=== PATIENT | male | born 1960 | race Caucasian/White ===

== ENCOUNTER 2016-12-08 14:03 | Emergency (ER) | payer MEDICARE ==
[2016-12-08 14:13] VITALS: O2SAT 95
[2016-12-08 14:24] LABS: Mean Cell Volume 95.9 fl (78-100); Mean Corpuscular Hemoglobin 32.2 pg (26-32); Mean Platelet Volume 10.3 fl (6-9.5); Platelet Count 75 K/mm3 (150-450); Red Blood Count 4.38 M/mm3 (4.1-5.6); Red Cell Distribution Width 14.6 % (11.5-14.0); White Blood Count 4.1 K/mm3 (4.0-10.5)
[2016-12-08 14:27] LABS: A-aADO2 67; ARTERIAL BLD GAS O2 SATURATION 97.9 % (95-100); ARTERIAL BLOOD GAS BASE EXCESS 7.3 (-2.0-2.0); ARTERIAL BLOOD GAS FIO2 28 %; ARTERIAL BLOOD GAS PO2 78 mmHg (75-100); ARTERIAL BLOOD GAS pH 7.47 (7.35-7.45)
--- NOTE | 2016-12-08 14:37 | XRAY ---
Indication: Altered mental status. Comparison: August 16, 2015. Portable apical lordotic chest clear. Heart is borderline enlarged. Vascularity normal. Bony thorax intact. Impression: Borderline cardiomegaly. Negative for acute pneumonic process or CHF.
[2016-12-08 14:46] LABS: ALBUMIN 2.9 g/dL (3.4-5.0); ALKALINE PHOSPHATASE 90 U/L (46-116); ANION GAP 10.3 MEQ/L (5-15); BLOOD UREA NITROGEN 12 mg/dL (9-20); CHLORIDE 108 mEq/L (98-107); Carbon Dioxide 31.2 mEq/L (21-32); Glucose 239 MG/DL (70-110); Potassium 3.9 mEq/L (3.5-5.1); SGOT/AST 49 U/L (15-37); SGPT/ALT 47 U/L (12-78); SODIUM 146 mEq/L (136-145); Total Protein 6.9 gm/dL (6.4-8.2)
--- NOTE | 2016-12-08 15:13 | XRAY ---
Indication: Altered mental status. Multiple contiguous axial images obtained through the head without contrast. Comparison: February 02, 2015. Several images slightly degraded by motion artifact. Again grossly normal appearing brain parenchyma, ventricles, and bony calvarium. Visualized paranasal sinuses and mastoid air cells are clear. Impression: Minimal motion artifact. Stable grossly negative CT head without contrast exam. CTDI 67.60
[2016-12-08 15:15] LABS: Collection Type CCMS; Leukocyte Esterase 2+ (NEGATIVE)
[2016-12-08 15:16] LABS: ADD URINE CULTURE? YES (NO); Bilirubin NEGATIVE (NEGATIVE); Blood 250 Ery/ul (0-5); COMPLETE URINE MICROSCOPIC? YES; Glucose NEGATIVE (NEGATIVE)
--- NOTE | 2016-12-08 15:17 | ERPHSYRPT ---
- History of Present Illness Time Seen by Provider: 12/08/16 14:42 Source: patient, family ( who is here- phone [phone]), EMS, [facility] records Patient Subjective Stated Complaint: [facility] states pt has been more slow to respond today. pt states he has not been using his sleep apnea machine at night for th past 4 nights because it is broken. Triage Nursing Assessment: pt alert and oriented x2. pt pink, warm, dry. pupils perrl. pt able to follow commands. ems blood sugar 252. Physician History: CC: not himself Hx: 55 y/ pt of Dr Archuleta from [place]. states not himdelf today, a little confused. No fever. No vomiting. He wears a suprapubic cath. Hx of DM. Apparently he has not used CPAP at night the past 4 nights. Pt is limited historian. Timing/Duration: today Severity: moderate Allergies/Adverse Reactions: metformin Allergy (Mild, Verified 12/08/16 14:13) Diarrhea phenytoin sodium [From Dilantin] Allergy (Mild, Verified 12/08/16 14:13) phenytoin sodium extended [From Dilantin] Allergy (Mild, Verified 12/08/16 14:13 ) carbamazepine [From Tegretol] Allergy (Unknown, Verified 12/08/16 14:13) Home Medications: Levothyroxine Sodium 75 Mcg [Synthroid 75 Mcg] 75 mcg PO DAILY 10/21/12 [ History] PANTOPRAZOLE 40 mg Tablet [Protonix 40MG Tablet] 40 mg PO DAILY 12/17/12 [ History] Hydrocodone Bit/Acetaminophen [Hydrocodon-Acetaminophn 10-325] 1 each PO Q4HPRN PRN 08/14/13 [History] Multivitamin [Multi-Vitamin Daily] 1 each PO DAILY 05/20/14 [History] Dextrose [Glucose] 4 gm PO UD PRN 06/26/14 [History] Fluticasone/Salmeterol [Advair 250-50 Diskus] 1 puff IH BID 06/26/14 [History] Glucagon 1 mg [GlucaGen 1 MG] 1 mg IM UD PRN 06/26/14 [History] Magnesium Hydroxide 30 ml [Milk of Magnesia 30 ml] 30 ml PO HSPRN PRN [History] Ascorbic Acid 500 mg [Vitamin C 500 MG] 750 mg PO BID 02/02/15 [History] Ipratropium/Albuterol Sulfate [Iprat-Albut 0.5-3(2.5) mg/3 ml] 3 ml IH BID 02/02 [History] Menthol [[place]] 3.2 mg MM .PRN PRN 02/02/15 [History] Tolterodine Tartrate 2 mg [Detrol 2 MG] 4 mg PO DAILY 02/02/15 [History] Acetaminophen 650 mg [Feverall 650 mg] 650 mg RC Q4HPRN PRN 03/29/15 [ History] Levetiracetam [Keppra] 250 mg PO DAILY 03/29/15 [History] Lorazepam 0.5 mg [Ativan 0.5 MG] 0.5 mg PO Q6HPRN PRN 03/29/15 [History] Armodafinil [Nuvigil] 200 mg PO DAILY 08/16/15 [History] Bumetanide [Bumex] 4 mg PO QAM 08/16/15 [History] Dextran 70/Hypromellose/Pf [Artificial Tears Drops] 1 drop OP Q8H 08/16/15 [ History] Insulin Lispro [Humalog] 1 units SQ ACHS 08/16/15 [History] Na Phos,M-B/Na Phos,Di-Ba [Fleet Enema] 1 bottle .ROUTE DAILY PRN PRN 08/16/15 [ History] Nystatin/TCN/Hc/Diphenhydram [Tiffanie's Magic Mouthwash] 10 ml PO QID PRN PRN 08/16/15 [History] Pregabalin 50 mg [Lyrica 50MG] 1 cap PO BID 08/16/15 [History] Amiloride HCl 5 mg PO DAILY 10/17/15 [History] Aspirin/Acetaminophen/Caffeine [Excedrin Migraine Caplet] 1 each PO BID PRN PRN 10/17/15 [History] Bumetanide [Bumex] 2 mg PO QPM 10/17/15 [History] Carbamide Peroxide [Ear Wax Drops] 5 drops OT BID 10/17/15 [History] Hx Tetanus, Diphtheria Vaccination/Date Given: Yes (unknown) Hx Influenza Vaccination/Date Given: No ([place]own) Hx Pneumococcal Vaccination/Date Given: No (unknown) Immunizations Up to Date: No (unknown) - Review of Systems Constitutional: Malaise, No Fever, No Chills Eyes: No Symptoms Respiratory: No Cough Cardiac: No Chest Pain Abdominal/Gastrointestinal: No Abdominal Pain, No Vomiting, No Diarrhea Genitourinary Symptoms: Other (suprapubic cath) Neurological: No Headache All Other Systems: Unable due to condition - Past Medical History Pertinent Past Medical History: Yes Neurological History: Alzheimer's Disease, Dementia, Seizures, Stroke, TIA ENT History: No Pertinent History Cardiac History: High Cholesterol, Hypertension Respiratory History: Bronchitis, COPD, Sleep Apnea Endocrine Medical History: Diabetes Type II, Hypothyroidism Musculoskeletal History: No Pertinent History GI Medical History: Cirrhosis History: Other Psycho-Social History: Bipolar, Depression Male Reproductive Disorders: No Pertinent History Other Medical History: URINARY INCONTINENCE/retention - Past Surgical History Past Surgical History: Yes Neuro Surgical History: No Pertinent History Cardiac: No Pertinent History Respiratory: No Pertinent History Gastrointestinal: No Pertinent History Genitourinary: No Pertinent History Musculoskeletal: Orthopedic Surgery Male Surgical History: Other Other Surgical History: LATE CIRCUMCISION - tip of FINGER AMPUTATION. SUPRAPUBIC CATHETER PLACED 07/11/14 - Social History Smoking Status: Former smoker How long have you smoked: YRS Exposure to second hand smoke: No Alcohol Use: None Drug Use: none Patient Lives Alone: No Significant Family History: heart disease, diabetes - Nursing Vital Signs Nursing Vital Signs: Initial Vital Signs Temperature 98.3 F Temperature Source Oral Pulse Rate 82 Respiratory Rate 14 Blood Pressure [] 130/65 Pain Intensity 0 - Physical Exam General Appearance: alert, obese Eye Exam: PERRL/EOMI Ears, Nose, Throat Exam: moist mucous membranes Neck Exam: supple Respiratory Exam: diminished breath sounds Cardiovascular Exam: regular rate/rhythm Gastrointestinal/Abdomen Exam: soft, No tenderness, No distention Male Genitalia Exam: other (suprapubic cath) Skin Exam: warm, dry SpO2 Interpretation: normal SpO2: 95 Oxygen Delivery: Room Air - Course Nursing assessment & vital signs reviewed: Yes EKG Interpreted by Me: RATE (81), Sinus Rhythm, NORMAL AXIS, NORMAL INTERVALS ( QTc 450), Non-specific ST Changes - Radiology Exams cxr X-ray Interpretation: Teleradiologist Report (borderline CM, no acute) - CT Exams head CT Interpretation: Negative, Discussed w/radiologist Ordered Tests: Active Orders 24 hr Category Date Time Status Residential Energy Auditor STAT Care 12/08/16 14:09 Active Clean Catch Urine Specimen STAT Care 12/08/16 14:09 Active EKG-ER Only STAT Care 12/08/16 14:09 Active IV Insertion STAT Care 12/08/16 14:09 Active Oxygen-ED Only NASAL CANNULA 2 lpm Care 12/08/16 15:27 Active Pulse Oximetry (ED) STAT Care 12/08/16 14:09 Active CHEST 1 VIEW (PORTABLE) Stat Exams 12/08/16 14:10 Completed HEAD WITHOUT CONTRAST [CT] Stat Exams 12/08/16 14:46 Completed ARTERIAL BLOOD GASES Stat Lab 12/08/16 14:24 Completed CBC W DIFF Stat Lab 12/08/16 14:20 Completed CMP Stat Lab 12/08/16 14:20 Completed CULTURE,URINE Stat Lab 12/08/16 15:12 Received Lactic Acid Stat Lab 12/08/16 15:20 Completed Manual Differential NC Stat Lab 12/08/16 14:20 Completed UA W/ MICROSCOPIC Stat Lab 12/08/16 15:12 Completed Lab/Rad Data: Laboratory Result Diagrams 12/08/16 14:20 12/08/16 14:20 Laboratory Results 12/08/16 12/08/16 12/08/16 Range/Units 15:20 15:12 14:24 WBC (4.0-10.5) K/mm3 RBC (4.1-5.6) M/mm3 Hgb (12.5-18.0) gm/dl Hct (42-50) % MCV (78-100) fl MCH (26-32) pg MCHC (32-36) g/dl RDW (11.5-14.0) % Plt Count (150-450) K/mm3 MPV (6-9.5) fl Puncture Site RIGHT RADIAL pCO2 44 (35-45) mmHg pO2 78 (75-100) mmHg Base Excess 7.3 H (-2.0-2.0) O2 Saturation 94.5 (94-100) g/dF ABG pH 7.47 H (7.35-7.45) ABG HCO3 32.0 H* (22-28) ABG O2 Sat (Measured) 97.9 (95-100) % Matt Test NOT APPLICABLE A-a Gradient 67 a/A Ratio 0.54 Hemoglobin 14.8 Carboxyhemoglobin 2.1 (0.0-6.9) % THgb Methemoglobin 1.4 (1.4-1.5) % Temperature 37.0 C POC O2 Flow Rate 28 % Sodium (136-145) mEq/L Potassium 3.9 (3.5-5.1) mEq/L Chloride (98-107) mEq/L Carbon Dioxide (21-32) mEq/L Anion Gap (5-15) MEQ/L BUN (9-20) mg/dL Creatinine (0.55-1.30) mg/dl Estimated GFR ML/MIN Glucose (70-110) MG/DL Lactic Acid 1.2 (0.4-2.0) Calcium (8.5-10.1) mg/dL Total Bilirubin (0.2-1.0) mg/dL AST (15-37) U/L ALT (12-78) U/L Alkaline Phosphatase (46-116) U/L Serum Total Protein (6.4-8.2) gm/dL Albumin (3.4-5.0) g/dL Ur Collection Type CCMS Urine Color YELLOW (YELLOW) Urine Appearance CLEAR (CLEAR) Urine pH 7.0 (5-6) Ur Specific [place] 1.010 (1.005-1.025) Urine Protein NEGATIVE (Negative) Urine Ketones NEGATIVE (NEGATIVE) Urine Blood 250 (0-5) Collin/ul Urine Nitrite POSITIVE (NEGATIVE) Urine Bilirubin NEGATIVE (NEGATIVE) Urine Urobilinogen NORMAL (0-1) mg/dL Ur Leukocyte Esterase 2+ (NEGATIVE) Urine Microscopic RBC 0-2 (0-2) /HPF Urine Microscopic WBC 10-15 (0-5) /HPF Ur Epithelial Cells FEW (FEW) /HPF Urine Bacteria MODERATE (NEGATIVE) /HPF Urine Glucose NEGATIVE (NEGATIVE) mg/dL Specimen Received 12/08/16 1512 12/08/16 12/08/16 Range/Units 14:20 14:20 WBC 4.1 (4.0-10.5) K/mm3 RBC 4.38 (4.1-5.6) M/mm3 Hgb 14.1 (12.5-18.0) gm/dl Hct 42.0 (42-50) % MCV 95.9 (78-100) fl MCH 32.2 H (26-32) pg MCHC 33.6 (32-36) g/dl RDW 14.6 H (11.5-14.0) % Plt Count 75 L (150-450) K/mm3 MPV 10.3 H (6-9.5) fl Puncture Site pCO2 (35-45) mmHg pO2 (75-100) mmHg Base Excess (-2.0-2.0) O2 Saturation (94-100) g/dF ABG pH (7.35-7.45) ABG HCO3 (22-28) ABG O2 Sat (Measured) (95-100) % Matt Test A-a Gradient a/A Ratio Hemoglobin Carboxyhemoglobin (0.0-6.9) % THgb Methemoglobin (1.4-1.5) % Temperature C POC O2 Flow Rate % Sodium 146 H (136-145) mEq/L Potassium 3.9 (3.5-5.1) mEq/L Chloride 108 H (98-107) mEq/L Carbon Dioxide 31.2 (21-32) mEq/L Anion Gap 10.3 (5-15) MEQ/L BUN 12 (9-20) mg/dL Creatinine 1.16 (0.55-1.30) mg/dl Estimated GFR > 60 ML/MIN Glucose 239 H (70-110) MG/DL Lactic Acid (0.4-2.0) Calcium 9.3 (8.5-10.1) mg/dL Total Bilirubin 1.30 H (0.2-1.0) mg/dL AST 49 H (15-37) U/L ALT 47 (12-78) U/L Alkaline Phosphatase 90 (46-116) U/L Serum Total Protein 6.9 (6.4-8.2) gm/dL Albumin 2.9 L (3.4-5.0) g/dL Ur Collection Type Urine Color (YELLOW) Urine Appearance (CLEAR) Urine pH (5-6) Ur Specific [place] (1.005-1.025) Urine Protein (Negative) Urine Ketones (NEGATIVE) Urine Blood (0-5) Collin/ul Urine Nitrite (NEGATIVE) Urine Bilirubin (NEGATIVE) Urine Urobilinogen (0-1) mg/dL Ur Leukocyte Esterase (NEGATIVE) Urine Microscopic RBC (0-2) /HPF Urine Microscopic WBC (0-5) /HPF Ur Epithelial Cells (FEW) /HPF Urine Bacteria (NEGATIVE) /HPF Urine Glucose (NEGATIVE) mg/dL Specimen Received - Progress Progress Note: 12/08/16 15:[address] Archuleta. Will release to [facility] with invanz 1 gram daily for one week, 1/2 NS IVF for one bag, and follow up. Counseled pt/family regarding: lab results, diagnosis, need for follow-up, rad results - Departure Time of Disposition: 15:49 Departure Disposition: Extended Care Facility Clinical Impression: UTI (urinary tract infection), Hypernatremia, Dehydration Condition: Stable Critical Care Time: No Referrals: DANNY ARCHULETA MD [Primary Care Provider] - Instructions: Hypernatremia, Dehydration -- Adult, Urinary Tract Infection (UTI ) Additional Instructions: Invanz 1gram IVPB Q 24 hours for UTI. 1/2 NS IV 100ml/hr for one bag- 1000ml. Call Dr Archuleta for further orders. Check CPAP as he needs to use it at night.
[2016-12-08 15:37] LABS: Bacteria MODERATE /HPF (NEGATIVE); Epithelial Cells FEW /HPF (FEW)
[2016-12-08] MEDS ORDERED: Invanz 1 GM*** 1 G in Sodium Chloride 100ML MINI-BAG PLUS 100 ML IV STA (15:47)
[2016-12-08 16:41] LABS: Basophil 1 % (0.0-1.0); Eosinophil 7 % (0.00-3.0); Total Cells Counted 100
[2016-12-08 16:43] LABS: ANISOCYTOSIS 1+; Platelet Estimate DECREASED (NORMAL)
[2016-12-08 17:16] VITALS: BP 131/72; PULSE 82
== END 2016-12-08 17:17 | disposition home or self-care (01) ==
LOC: ED 14:03
DX: N39.0 Urinary tract infection, site not specified (principal); E87.0 Hyperosmolality and hypernatremia; E86.0 Dehydration; R53.81 Other malaise; Z79.899 Other long term (current) drug therapy
CPT/HCPCS: 36000; 36415; 36600; 70450; 71010; 80053; 81000; 82375; 82803; 83605; 85025; 87077; 87086; 87186; 93005; 93041; 96360; 96365; 99285; J1335

== ENCOUNTER 2017-02-10 21:19 | Emergency (ER) | payer MEDICARE ==
[2017-02-10] MEDS ORDERED: Phenergan 25 MG INJ IV ONE (21:26)
[2017-02-10] MEDS ORDERED: Hydromorphone 1 mg/ml Ampule IV ONE (21:26)
--- NOTE | 2017-02-10 21:26 | ERPHSYRPT ---
- History of Present Illness Time Seen by Provider: 02/10/17 21:19 Source: patient Exam Limitations: no limitations Physician History: ABOUT 45 MINUTES AGO PT WAS IN HIS WHEELCHAIR TRYING TO KICK A TOY OUT OF HIS WAY WHEN HE FELL FORWARD WITH RESULTANT PAIN IN THE LOWER BACK, HEAD, ABDOMEN AND BOTH KNEES. PT DENIES CHEST PAIN, SHORTNESS OF AIR, VOMITING. Allergies/Adverse Reactions: metformin Allergy (Mild, Verified 12/08/16 14:13) Diarrhea phenytoin sodium [From Dilantin] Allergy (Mild, Verified 12/08/16 14:13) phenytoin sodium extended [From Dilantin] Allergy (Mild, Verified 12/08/16 14:13 ) carbamazepine [From Tegretol] Allergy (Unknown, Verified 12/08/16 14:13) Home Medications: Levothyroxine Sodium 75 Mcg [Synthroid 75 Mcg] 75 mcg PO DAILY 10/21/12 [ History] PANTOPRAZOLE 40 mg Tablet [Protonix 40MG Tablet] 40 mg PO DAILY 12/17/12 [ History] Hydrocodone Bit/Acetaminophen [Hydrocodon-Acetaminophn 10-325] 1 each PO Q4HPRN PRN 08/14/13 [History] Multivitamin [Multi-Vitamin Daily] 1 each PO DAILY 05/20/14 [History] Dextrose [Glucose] 4 gm PO UD PRN 06/26/14 [History] Fluticasone/Salmeterol [Advair 250-50 Diskus] 1 puff IH BID 06/26/14 [History] Glucagon 1 mg [GlucaGen 1 MG] 1 mg IM UD PRN 06/26/14 [History] Magnesium Hydroxide 30 ml [Milk of Magnesia 30 ml] 30 ml PO HSPRN PRN [History] Ascorbic Acid 500 mg [Vitamin C 500 MG] 750 mg PO BID 02/02/15 [History] Ipratropium/Albuterol Sulfate [Iprat-Albut 0.5-3(2.5) mg/3 ml] 3 ml IH BID 02/02 [History] Menthol [[place]] 3.2 mg MM .PRN PRN 02/02/15 [History] Tolterodine Tartrate 2 mg [Detrol 2 MG] 4 mg PO DAILY 02/02/15 [History] Acetaminophen 650 mg [Feverall 650 mg] 650 mg RC Q4HPRN PRN 03/29/15 [ History] Levetiracetam [Keppra] 250 mg PO DAILY 03/29/15 [History] Lorazepam 0.5 mg [Ativan 0.5 MG] 0.5 mg PO Q6HPRN PRN 03/29/15 [History] Armodafinil [Nuvigil] 200 mg PO DAILY 08/16/15 [History] Bumetanide [Bumex] 4 mg PO QAM 08/16/15 [History] Dextran 70/Hypromellose/Pf [Artificial Tears Drops] 1 drop OP Q8H 08/16/15 [ History] Insulin Lispro [Humalog] 1 units SQ ACHS 08/16/15 [History] Nystatin/TCN/Hc/Diphenhydram [Tiffanie's Magic Mouthwash] 10 ml PO QID PRN PRN 08/16/15 [History] Pregabalin 50 mg [Lyrica 50MG] 1 cap PO BID 08/16/15 [History] Sodium Phosphate,[place]-Dibasic [Fleet Enema] 1 bottle .ROUTE DAILY PRN PRN [History] Amiloride HCl 5 mg PO DAILY 10/17/15 [History] Aspirin/Acetaminophen/Caffeine [Excedrin Migraine Caplet] 1 each PO BID PRN PRN 10/17/15 [History] Bumetanide [Bumex] 2 mg PO QPM 10/17/15 [History] Carbamide Peroxide [Ear Wax Drops] 5 drops OT BID 10/17/15 [History] Hx Tetanus, Diphtheria Vaccination/Date Given: Yes (unknown) Hx Influenza Vaccination/Date Given: No (unkown) Hx Pneumococcal Vaccination/Date Given: No (unknown) - Review of Systems Respiratory: No Dyspnea Cardiac: No Chest Pain Abdominal/Gastrointestinal: Abdominal Pain, No Vomiting Musculoskeletal: Back Pain (LOWER), Joint Pain (PAIN IN BOTH KNEES) Neurological: Headache All Other Systems: Reviewed and Negative - Past Medical History Pertinent Past Medical History: Yes Neurological History: Alzheimer's Disease, Dementia, Seizures, Stroke, TIA ENT History: No Pertinent History Cardiac History: High Cholesterol, Hypertension Respiratory History: Bronchitis, COPD, Sleep Apnea Endocrine Medical History: Diabetes Type II, Hypothyroidism Musculoskeletal History: No Pertinent History GI Medical History: Cirrhosis History: Other Psycho-Social History: Bipolar, Depression Male Reproductive Disorders: No Pertinent History Other Medical History: URINARY INCONTINENCE/retention - Past Surgical History Past Surgical History: Yes Neuro Surgical History: No Pertinent History Cardiac: No Pertinent History Respiratory: No Pertinent History Gastrointestinal: No Pertinent History Genitourinary: No Pertinent History Musculoskeletal: Orthopedic Surgery Male Surgical History: Other Other Surgical History: LATE CIRCUMCISION - tip of FINGER AMPUTATION. SUPRAPUBIC CATHETER PLACED 07/11/14 - Social History Smoking Status: Former smoker How long have you smoked: YRS Exposure to second hand smoke: No Alcohol Use: None Drug Use: none Patient Lives Alone: No Significant Family History: heart disease, diabetes - Nursing Vital Signs Nursing Vital Signs: Initial Vital Signs Temperature 98.7 F 02/10/17 21:43 Pulse Rate 82 02/10/17 21:43 Respiratory Rate 20 02/10/17 21:43 Blood Pressure 128/66 02/10/17 21:43 O2 Sat by Pulse Oximetry 82 L 02/10/17 21:43 Pain Scale Pain Intensity 0 - [place] Coma Score Best Eye Response ([place]): (4) open spontaneously Best Verbal Response ([place]): (5) oriented Best Motor Response (Alexandr): (6) obeys commands Alexandr Total: 15 - Physical Exam General Appearance: alert Head Injury: contusions (ERYTHEMATOUS ABRASION ON RIGHT UPPER ASPECT OF FOREHEAD ) Eye Exam: PERRL/EOMI ENT Exam: airway nml, nml ext.inspection, hearing grossly normal Neck Exam: trachea midline, tenderness (MILD POSTERIOR TENDERNESS) Respiratory/Chest Exam: normal breath sounds Cardiovascular Exam: normal heart sounds Gastrointestinal Exam: soft, normal bowel sounds, tenderness (MILD DIFFUSE TENDERNESS), other (SUPRAPUBIC CATHETER IN PLACE.) Back Exam: other (MILD LUMBAR TENDERNESS) Extremity Exam: normal inspection, pedal edema (+3 EDEMA BILATERALLY) Peripheral Pulses: dorsalis-pedis (R): 1+, dorsalis-pedis (L): 1+ Neurologic Exam: alert, cooperative Skin Exam: abrasion (ABRASIONS OF BOTH KNEES RIGHT > LEFT WITH GOOD ROM.) - Course Nursing assessment & vital signs reviewed: Yes - Radiology Exams Left Knee X-ray Interpretation: Interpreted by me, No Fracture Right Knee X-ray Interpretation: Interpreted by me, No Fracture - CT Exams Head CT Interpretation: Tele-radiologist Report (NO ACUTE FINDINGS) Cervical Spine CT Interpretation: Tele-radiologist Report (NO ACUTE FRACTURE OR SUBLUXATION.) Abdomen/Pelvis CT Interpretation: Tele-radiologist Report (SPLENOMEGALY AND SPLENIC GRANULOMA. CHOLELITHIASIS.) Ordered Tests: Active Orders 24 hr Category Date Time Status IV Insertion STAT Care 02/10/17 21:26 Active cath [Cath for Specimen-Straight] STAT Care 02/10/17 22:52 Active ABDOMEN AND PELVIS W/0 CONTRAS [CT] Stat Exams 02/10/17 21:39 Taken CERVICAL SPINE WO CONTRAST [CT] Stat Exams 02/10/17 21:28 Taken HEAD WITHOUT CONTRAST [CT] Stat Exams 02/10/17 21:28 Taken KNEE (1 OR 2 VIEW) Stat Exams 02/10/17 21:29 Taken KNEE (1 OR 2 VIEW) Stat Exams 02/10/17 21:29 Taken AMYLASE Stat Lab 02/10/17 21:45 Completed BLOOD CULTURE Stat Lab 02/11/17 00:57 Received CBC W DIFF Stat Lab 02/10/17 21:45 Completed CMP Stat Lab 02/10/17 21:45 Completed CULTURE,URINE Stat Lab 02/10/17 22:30 Received LIPASE Stat Lab 02/10/17 21:45 Completed MAG [MAGNESIUM] Stat Lab 02/10/17 21:45 Completed UA W/ MICROSCOPIC Stat Lab 02/10/17 22:30 Completed Medication Summary Generic Name Dose Route Start Last Admin Trade Name Freq PRN Reason Stop Dose Admin Sodium Chloride 1,000 mls @ 100 mls/hr 02/10/17 21:30 02/10/17 22:07 Sodium Chloride 0.9% 1000 Ml IV 03/12/17 21:29 100 mls/hr .Q10H CARMEN Administration Discontinued Medications Generic Name Dose Route Start Last Admin Trade Name Freq PRN Reason Stop Dose Admin Hydromorphone HCl 0.5 mg 02/10/17 21:26 02/10/17 22:07 Hydromorphone 1 Mg/Ml Ampule IV 02/10/17 21:27 0.5 mg STAT ONE Administration Hydromorphone HCl Confirm 02/10/17 21:50 Hydromorphone 1 Mg/Ml Ampule Administered 02/10/17 21:51 Dose 1 mg .ROUTE .STK-MED ONE Ceftriaxone Sodium/Dextrose 1 g in 50 mls @ 100 mls/hr 02/11/17 00:44 00:55 Rocephin 1 Gm-D5w 50 Ml Bag IV 02/11/17 01:13 100 mls/hr STAT STA Administration Ceftriaxone Sodium/Dextrose Confirm 02/11/17 00:49 Rocephin 1 Gm-D5w 50 Ml Bag Administered 02/11/17 00:50 Dose 1 g in 50 mls @ ud IV .STK-MED ONE Promethazine HCl 12.5 mg 02/10/17 21:26 02/10/17 22:08 Phenergan 25 Mg Inj IV 02/10/17 21:27 12.5 mg STAT ONE Administration Promethazine HCl Confirm 02/10/17 21:50 Phenergan 25 Mg Inj Administered 02/10/17 21:51 Dose 25 mg .ROUTE .STK-MED ONE Promethazine HCl Confirm 02/10/17 21:56 Phenergan 25 Mg Inj Administered 02/10/17 21:57 Dose 25 mg .ROUTE .STK-MED ONE Lab/Rad Data: Laboratory Result Diagrams 02/10/17 21:45 02/10/17 21:45 Laboratory Results 02/10/17 02/10/17 02/10/17 Range/Units 22:30 21:45 21:45 WBC (4.0-10.5) K/mm3 RBC (4.1-5.6) M/mm3 Hgb (12.5-18.0) gm/dl Hct (42-50) % MCV (78-100) fl MCH (26-32) pg MCHC (32-36) g/dl RDW (11.5-14.0) % Plt Count (150-450) K/mm3 MPV (6-9.5) fl Gran % (36.0-66.0) % Lymphocytes % (24.0-44.0) % Monocytes % (0.0-12.0) % Eosinophils % (0.00-5.0) % Basophils % (0.0-0.4) % Basophils # (0-0.4) Sodium 143 (136-145) mEq/L Potassium 4.2 (3.5-5.1) mEq/L Chloride 107 (98-107) mEq/L Carbon Dioxide 30.9 (21-32) mEq/L Anion Gap 9.4 (5-15) MEQ/L BUN 13 (9-20) mg/dL Creatinine 1.28 (0.55-1.30) mg/dl Estimated GFR > 60 ML/MIN Glucose 154 H (70-110) MG/DL Calcium 9.0 (8.5-10.1) mg/dL Magnesium 2.0 (1.8-2.4) mg/dL Total Bilirubin 0.90 (0.2-1.0) mg/dL AST 46 H (15-37) U/L ALT 56 (12-78) U/L Alkaline Phosphatase 93 (46-116) U/L Serum Total Protein 6.6 (6.4-8.2) gm/dL Albumin 2.7 L (3.4-5.0) g/dL Amylase 79 (25-115) U/L Lipase 446 H (73-393) U/L Ur Collection Type CATH Urine Color YELLOW (YELLOW) Urine Appearance CLOUDY (CLEAR) Urine pH 9.0 (5-6) Ur Specific [place] 1.000 (1.005-1.025) Urine Protein TRACE (Negative) Urine Ketones NEGATIVE (NEGATIVE) Urine Blood 250 (0-5) Collin/ul Urine Nitrite POSITIVE (NEGATIVE) Urine Bilirubin NEGATIVE (NEGATIVE) Urine Urobilinogen 4 (0-1) mg/dL Ur Leukocyte Esterase 2+ (NEGATIVE) Urine Microscopic RBC 5-10 (0-2) /HPF Urine Microscopic WBC 2-5 (0-5) /HPF Triple Phos Crystals 2-5 (NEGATIVE) /HPF Amorphous Crystals MODERATE (NEGATIVE) /HPF Urine Bacteria PACKED (NEGATIVE) /HPF Urine Mucus SLIGHT (NEGATIVE) /HPF Urine Glucose NEGATIVE (NEGATIVE) mg/dL Slides for Path Review Specimen Received 02/10/17:1836 02/10/17 Range/Units 21:45 WBC 4.4 (4.0-10.5) K/mm3 RBC 4.22 (4.1-5.6) M/mm3 Hgb 13.3 (12.5-18.0) gm/dl Hct 39.8 L (42-50) % MCV 94.3 (78-100) fl MCH 31.5 (26-32) pg MCHC 33.4 (32-36) g/dl RDW 13.7 (11.5-14.0) % Plt Count 73 L (150-450) K/mm3 MPV 10.3 H (6-9.5) fl Gran % 54.6 (36.0-66.0) % Lymphocytes % 28.0 (24.0-44.0) % Monocytes % 14.0 H (0.0-12.0) % Eosinophils % 3.2 (0.00-5.0) % Basophils % 0.2 (0.0-0.4) % Basophils # 0.01 (0-0.4) Sodium (136-145) mEq/L Potassium (3.5-5.1) mEq/L Chloride (98-107) mEq/L Carbon Dioxide (21-32) mEq/L Anion Gap (5-15) MEQ/L BUN (9-20) mg/dL Creatinine (0.55-1.30) mg/dl Estimated GFR ML/MIN Glucose (70-110) MG/DL Calcium (8.5-10.1) mg/dL Magnesium (1.8-2.4) mg/dL Total Bilirubin (0.2-1.0) mg/dL AST (15-37) U/L ALT (12-78) U/L Alkaline Phosphatase (46-116) U/L Serum Total Protein (6.4-8.2) gm/dL Albumin (3.4-5.0) g/dL Amylase (25-115) U/L Lipase (73-393) U/L Ur Collection Type Urine Color (YELLOW) Urine Appearance (CLEAR) Urine pH (5-6) Ur Specific [place] (1.005-1.025) Urine Protein (Negative) Urine Ketones (NEGATIVE) Urine Blood (0-5) Collin/ul Urine Nitrite (NEGATIVE) Urine Bilirubin (NEGATIVE) Urine Urobilinogen (0-1) mg/dL Ur Leukocyte Esterase (NEGATIVE) Urine Microscopic RBC (0-2) /HPF Urine Microscopic WBC (0-5) /HPF Triple Phos Crystals (NEGATIVE) /HPF Amorphous Crystals (NEGATIVE) /HPF Urine Bacteria (NEGATIVE) /HPF Urine Mucus (NEGATIVE) /HPF Urine Glucose (NEGATIVE) mg/dL Slides for Path Review YES Specimen Received - Departure Time of Disposition: 04:16 Departure Disposition: Home Clinical Impression: FALL, HEAD CONTUSION, CERVICAL SPRAIN, ABDOMINAL PAIN, LOW BACK PAIN, BILATERAL KNEE ABRASIONS/CONTUSIONS, UTI Condition: Stable Critical Care Time: No Referrals: HANK MERA [Primary Care Provider] - Instructions: Prevent Falls, Contusion, Urinary Tract Infection (UTI) Additional Instructions: FOLLOW UP WITH PRIVATE DOCTOR TOMORROW. WEAR SOFT C-COLLAR FOR 2 WEEKS ONLY WHILE AWAKE. Prescriptions: Nitrofurantoin Monohyd/M-Cryst [Macrobid 100 mg Capsule] 100 mg PO BID #20 capsule
[2017-02-10] MEDS ORDERED: Sodium Chloride 0.9% 1000 ML 1,000 ML IV SCH (21:30)
[2017-02-10] MEDS ORDERED: Phenergan 25 MG INJ ONE ×2 (21:50→21:56)
[2017-02-10] MEDS ORDERED: Hydromorphone 1 mg/ml Ampule ONE (21:50)
[2017-02-10] MEDS ORDERED: Sodium Chloride 0.9% 1000 ML 1,000 ML ONE (21:50)
[2017-02-10 21:51] LABS: BASOPHIL % 0.2 % (0.0-0.4); Eosinophil % 3.2 % (0.00-5.0); Granulocytes % 54.6 % (36.0-66.0); Mean Cell Volume 94.3 fl (78-100); Mean Corpuscular Hemoglobin 31.5 pg (26-32); Mean Platelet Volume 10.3 fl (6-9.5); Platelet Count 73 K/mm3 (150-450); Red Blood Count 4.22 M/mm3 (4.1-5.6); Red Cell Distribution Width 13.7 % (11.5-14.0); White Blood Count 4.4 K/mm3 (4.0-10.5)
[2017-02-10 22:18] LABS: ALBUMIN 2.7 g/dL (3.4-5.0); ALKALINE PHOSPHATASE 93 U/L (46-116); ANION GAP 9.4 MEQ/L (5-15); BLOOD UREA NITROGEN 13 mg/dL (9-20); CHLORIDE 107 mEq/L (98-107); Carbon Dioxide 30.9 mEq/L (21-32); Glucose 154 MG/DL (70-110); LIPASE 446 U/L (73-393); Potassium 4.2 mEq/L (3.5-5.1); SGOT/AST 46 U/L (15-37); SGPT/ALT 56 U/L (12-78); SODIUM 143 mEq/L (136-145); Total Protein 6.6 gm/dL (6.4-8.2)
[2017-02-10 23:11] LABS: ADD URINE CULTURE? YES (NO); Bacteria PACKED /HPF (NEGATIVE); Bilirubin NEGATIVE (NEGATIVE); Blood 250 Ery/ul (0-5); COMPLETE URINE MICROSCOPIC? YES; Collection Type CATH; Glucose NEGATIVE (NEGATIVE); Leukocyte Esterase 2+ (NEGATIVE); Mucus SLIGHT /HPF (NEGATIVE)
[2017-02-11] MEDS ORDERED: ROCEPHIN 1 Gm-D5w 50 ml Bag** 1 G/50 ML IVPB IV STA (00:44)
[2017-02-11] MEDS ORDERED: ROCEPHIN 1 Gm-D5w 50 ml Bag** 1 G/50 ML IVPB IV ONE (00:49)
[2017-02-11 02:24] VITALS: PULSE 72
[2017-02-11] MEDS ORDERED: NORCO 5/325 MG PO ONE (04:19)
[2017-02-11] MEDS ORDERED: NORCO 5/325 MG ONE (04:27)
[2017-02-11 04:40] VITALS: O2SAT 97
[2017-02-11 04:41] VITALS: BP 122/88
--- NOTE | 2017-02-11 10:12 | XRAY ---
Exam: Two-view portable right knee series from 02/11/2017. Comparison: None. Indication: Fell from wheelchair. Findings: AP and cross table lateral images of the right knee were obtained. I see no acute fracture or dislocation. There appears to be a small suprapatellar effusion on the crosstable lateral image. There is mild narrowing of the medial compartment of the right knee joint space. The lateral compartment is well maintained. Mild lateral osteophyte formation is seen on the femoral side of the lateral margin of the right knee joint. The patellofemoral joint appears preserved. No other focal bone lesion is seen. Impression: 1. No acute fracture or dislocation of the right knee is seen. 2. There is a small suprapatellar effusion of the right knee. 3. Mild medial compartment osteoarthritis of the right knee is seen.
--- NOTE | 2017-02-11 10:39 | XRAY ---
Exam: Limited two-view study of the left knee from 02/11/2017. Comparison: None. Indication: Fell from wheelchair. Findings: Portable AP and crosstable lateral images of the left knee were obtained. The lateral film is mildly rotated. There is slight narrowing of the patellofemoral joint at its superior aspect. I cannot exclude a tiny amount of suprapatellar fluid on the crosstable lateral image. There is moderate to marked narrowing of the medial compartment of the left knee joint space suggestive of osteoarthritis. The lateral compartment appears unremarkable. There is about 2.5 mm cortical step-off deformity along the medial margin of the proximal left tibia on the AP image. A radiolucent fracture line is not seen. The articular surface of the medial tibial plateau appears unremarkable. This step-off is probably due to some osteophyte formation rather than a subtle fracture. Correlate clinically. Some apparent soft tissue edema or swelling is seen at the lateral aspect of the left knee. Correlate clinically. Impression: 1. Moderate to marked medial compartment osteoarthritis of the left knee is seen. There is also some hypertrophic change of the medial tibial eminence. I also suspect some mild osteoarthritis of the superior aspect of the left patellofemoral joint. 2. Small cortical step-off deformity without a fracture line at the medial margin of the proximal left tibia on AP view only. I believe this probably relates to mild osteophyte formation rather than an occult proximal left tibia fracture. Correlate clinically as to point tenderness. 3. I believe there is a tiny suprapatellar effusion of the left knee on the crosstable lateral view. 4. There appears to be some mild asymmetric soft tissue swelling or edema along the lateral aspect of the left knee on the AP image. Correlate clinically.
--- NOTE | 2017-02-11 11:41 | XRAY ---
Exam: CT of the head without IV contrast from 02/11/2017. CTDI: 50.14 Comparison: CT of the head without IV contrast from 12/08/2016. Indication: Fall from wheelchair, complains of head and neck pain. Technique: Non-IV contrast axial images were obtained through the brain. Reconstructed coronal and sagittal images were created and reviewed. Findings: The ventricles appear of normal size. No focal mass effect or midline shift is seen. Minor peripheral cortical atrophic changes are seen which are age-related. No acute intracranial bleed or abnormal extra-axial fluid collection is seen. No discrete low-attenuation territorial infarction is seen. Structures of the posterior fossa appear unremarkable. White matter-mireles matter interfaces reveal no significant abnormality. There appears to be a small retention cyst or polyp within the inferior aspect of the left maxillary sinus measuring 1.1 cm in diameter on axial image #1. The remainder of the paranasal sinuses and mastoid air cells is unremarkable. The calvarium of the skull appears intact. Impression: 1. Mild generalized age-related cortical atrophy. 2. No acute intracranial bleed or other acute brain changes are seen. 3. 1.1 cm in diameter retention cyst versus polyp at inferior posterior margin of left maxillary sinus.
--- NOTE | 2017-02-11 13:06 | XRAY ---
Exam: CT of the cervical spine without IV contrast from 02/11/2017. CTDI: 131.16 Comparison: None. Indication: Fell from wheelchair, complains of head and neck pain. Technique: Non-IV contrast axial images were obtained through the cervical spine. Reconstructed coronal and sagittal images were created and reviewed. Findings: I see no acute cervical spine fracture, AP subluxation, or prevertebral soft tissue swelling. Degenerative changes are seen at the preodontoid space. Otherwise, the C1-C2 articulation appears unremarkable. Minimal vascular calcification is seen within both carotid bulbs. The thyroid gland appears grossly unremarkable. The visualized lung apices appear unremarkable. On the coronal images, there is mild osteoarthritic spurring of the uncovertebral joints at C2-C3 on the left and at C3-C4 bilaterally. The facet joints are not offset on the sagittal images. At least 3 nuchal ligament calcifications are seen within the posterior soft tissues of the lower neck. Small anterior vertebral endplate spurs are seen from C3-C4 through C6-C7. I also note small posterior vertebral endplate spurs at C3-C4 and the posterior right lateral aspect of C5-C6. The cervical interspace heights reveal no significant narrowing. No significant cervical canal spinal stenosis is seen. However, on axial image #46 and #47, I cannot exclude some mild lateral recess stenosis on the right at C5-C6 secondary to the posterior vertebral endplate spurring at this level. The neural foramen are patent bilaterally on the axial images. No cervical ribs are seen. There is slight convexity of the cervical spine toward the right centered at C4 on the coronal images, probably related to patient positioning. Impression: 1. No acute cervical spine fracture, AP subluxation, or prevertebral soft tissue swelling is seen. 2. Mild cervical spondylosis. 3. Mild posterior right lateral vertebral endplate spurring is seen at C5-C6 on the right on axial images #46 and #47. This appears to be causing some mild relative lateral recess stenosis on the right.
--- NOTE | 2017-02-11 14:22 | XRAY ---
Exam: CT of the abdomen and pelvis without IV contrast from 02/11/2017. CTDI: 20.45 Comparison: CT of the abdomen and pelvis without IV contrast from 02/19/2016. Indication: Fell from wheelchair, complains of lower abdominal pain, low back pain, and pelvic pain. Technique: Non-IV contrast axial images were obtained through the abdomen and pelvis. Reconstructed coronal and sagittal images were created and reviewed. It appears the patient's left arm is down by his side. Findings: The lung bases reveal some minimal scattered bibasilar linear atelectasis, most prominent within the posterior costophrenic angles. The liver reveals a mild irregular surface contour suggestive of cirrhosis. Multiple calcified gallstones layering within the posterior dependent portion of the gallbladder neck are seen. No obvious intrahepatic biliary duct distention is seen. The spleen appears enlarged measuring 18.1 cm in greatest transverse diameter. Several small calcified granulomas are seen within the spleen. There is some artifact from the patient's arm being down by his side. The pancreas and adrenal glands appear unremarkable. Prior right ureteral stent has been removed. The left kidney is somewhat low-lying. The right kidney is smaller than the left kidney. The right kidney measures 10.5 cm in length on sagittal image #85 and the left kidney measures 13.4 cm in length on sagittal image #167. I believe there is a small exophytic cyst at the lower pole the left kidney measuring 1.4 cm in diameter representing no change. Prior calculi within the right kidney are no longer seen. No other new renal mass, hydronephrosis, or renal calculi are seen. The abdominal aorta appears of normal diameter. Minimal atherosclerotic vascular calcification is seen. No abnormal retroperitoneal lymphadenopathy is seen. I see no free intraperitoneal air. There is a fat-containing umbilical hernia which appears to contain some small vessels within it. No bowel is seen. This is unchanged from 02/19/2016. I see no bowel distention. Scattered stool is seen throughout the colon. The appendix is identified within the right lower quadrant and appears normal. A suprapubic catheter is seen entering the urinary bladder anteriorly. The urinary bladder is partially decompressed. The seminal vesicles and prostate gland appear unremarkable. No enlarged pelvic lymph nodes or free intraperitoneal fluid is seen. Some mild fat is seen within both inguinal canals, right slightly greater than left. Postinflammatory lymph nodes are seen within each groin. I see no acute fracture or aggressive bone lesion. A prominent Schmorl's node is seen within the posterior aspect of the superior vertebral endplate of T12 representing no change. Slight loss of anterior vertebral body height of L1 is seen representing no change from 02/19/2016. Impression: 1. The exam is mildly limited due to some artifactual streaking, apparently from the patient's left arm being down by his side. 2. Cholelithiasis is again seen. No intrahepatic biliary duct distention is seen. 3. The liver appears relatively small and has a mild nodular contour suggestive of cirrhosis. In addition, the spleen is moderately enlarged. Both of these findings are unchanged from 02/19/2016 as well. 4. I again note a small umbilical hernia containing omental fat and some small serpiginous vessels. This is unchanged from 02/19/2016. 5. A suprapubic Tilley catheter is seen within a moderately decompressed urinary bladder.
== END 2017-02-11 05:17 | disposition home or self-care (01) ==
LOC: ED 21:19
DX: S00.93XA Contusion of unspecified part of head, initial encounter (principal); S13.4XXA Sprain of ligaments of cervical spine, initial encounter; R10.9 Unspecified abdominal pain; M54.5 Low back pain; S80.212A Abrasion, left knee, initial encounter; S80.211A Abrasion, right knee, initial encounter; S80.02XA Contusion of left knee, initial encounter; S80.01XA Contusion of right knee, initial encounter; N39.0 Urinary tract infection, site not specified; W05.0XXA Fall from non-moving wheelchair, initial encounter
CPT/HCPCS: 96374; 96365; 99285; 36000; 82962; 96360; 96361; 96375; 87040 ×2; 82150; 81000; 36415; 83690; 87186; 83735; 85025; 87077; 80053; 87086; 73560; 70450; 72125; 74176; P9612; 96367; J0696; J1170; J2550; L0120; A9270-GY

== ENCOUNTER 2017-06-19 08:18 | Emergency (ER) | payer MEDICARE ==
--- NOTE | 2017-06-19 08:35 | ERPHSYRPT ---
- History of Present Illness Time Seen by Provider: 06/19/17 08:23 Source: patient Exam Limitations: clinical condition Patient Subjective Stated Complaint: PT BROUGHT TO ED PER EMS FROM [facility]- REPORTS PT CATH HAS BECOME DISLODGED ET CAME OUT-PT DENIES PAIN OR DISCOMFORT Triage Nursing Assessment: PT PINK WARM ET [id number] QUESTIONS CORRECTLY-TALKATIVE WITH NO OBVIOUS DISTRESS Physician History: PATIENT WITH HISTORY OR COPD, TYPE 2 DIABETES, DEMENTIA, SEIZURE DISORDER, DISLODGED HIS SUPRAPUBIC CATHETER THIS AM. Timing/Duration: other (PRIOR TO ARRIVAL) Severity: mild Modifying Factors: Improves With: nothing Associated Symptoms: denies symptoms Allergies/Adverse Reactions: metformin Allergy (Mild, Verified 06/19/17 08:27) Diarrhea phenytoin sodium [From Dilantin] Allergy (Mild, Verified 06/19/17 08:27) phenytoin sodium extended [From Dilantin] Allergy (Mild, Verified 06/19/17 08:27 ) carbamazepine [From Tegretol] Allergy (Unknown, Verified 06/19/17 08:27) Home Medications: Aripiprazole [Abilify] 5 mg PO HS 06/19/17 [History] Escitalopram Oxalate [Lexapro] 20 mg PO HS 06/19/17 [History] Folic Acid 1 mg [Folate 1 mg] 1 mg PO DAILY 06/19/17 [History] Lactulose 10 gm PO QID 06/19/17 [History] Levothyroxine Sodium 75 Mcg [Synthroid 75 Mcg] 75 mcg PO DAILY 06/19/17 [ History] Modafinil [Provigil] 200 mg PO DAILY 06/19/17 [History] Multivitamin [Multivitamins] 1 each PO DAILY 06/19/17 [History] Oxycodone HCl 5 mg Ir [Oxy-IR 5 MG] 10 mg PO TID 06/19/17 [History] PANTOPRAZOLE 40 mg Tablet [Protonix 40MG Tablet] 40 mg PO DAILY 06/19/17 [ History] Potassium Chloride 20 Meq [Klor-Con 20 MEQ] 40 meq PO UD 06/19/17 [History] Thiamine HCl 100 mg [Vitamin B-1 100 mg] 100 mg PO DAILY 06/19/17 [History ] Tolterodine Tartrate [Detrol] 4 mg PO DAILY 06/19/17 [History] Hx Tetanus, Diphtheria Vaccination/Date Given: Yes Hx Influenza Vaccination/Date Given: No Hx Pneumococcal Vaccination/Date Given: No - Review of Systems Constitutional: No Fever, No Chills Eyes: No Symptoms Ears, Nose, & Throat: No Symptoms Respiratory: No Symptoms, No Cough, No Dyspnea Cardiac: No Symptoms, No Chest Pain, No Edema, No Syncope Abdominal/Gastrointestinal: No Abdominal Pain, No Nausea, No Vomiting, No Diarrhea Genitourinary Symptoms: Other (DISLODGED SUPRPUBIC CATHETER), No Dysuria Musculoskeletal: No Back Pain, No Neck Pain Skin: No Rash Neurological: No Dizziness, No Focal Weakness, No Sensory Changes Psychological: No Symptoms Endocrine: No Symptoms All Other Systems: Reviewed and Negative - Past Medical History Pertinent Past Medical History: Yes Neurological History: Alzheimer's Disease, Dementia, Seizures, Stroke, TIA ENT History: No Pertinent History Cardiac History: High Cholesterol, Hypertension Respiratory History: Bronchitis, COPD, Sleep Apnea Endocrine Medical History: Diabetes Type II, Hypothyroidism Musculoskeletal History: No Pertinent History GI Medical History: Cirrhosis History: Other Psycho-Social History: Bipolar, Depression Male Reproductive Disorders: No Pertinent History Other Medical History: URINARY INCONTINENCE/retention - Past Surgical History Past Surgical History: Yes Neuro Surgical History: No Pertinent History Cardiac: No Pertinent History Respiratory: No Pertinent History Gastrointestinal: No Pertinent History Genitourinary: No Pertinent History Musculoskeletal: Orthopedic Surgery Male Surgical History: Other Other Surgical History: LATE CIRCUMCISION - tip of FINGER AMPUTATION. SUPRAPUBIC CATHETER PLACED 07/11/14 - Social History Smoking Status: Former smoker How long have you smoked: YRS Exposure to second hand smoke: No Alcohol Use: None Drug Use: none Patient Lives Alone: No Significant Family History: heart disease, diabetes - Nursing Vital Signs Nursing Vital Signs: Initial Vital Signs Temperature 98.0 F 06/19/17 08:19 Pulse Rate 78 06/19/17 08:19 Respiratory Rate 20 06/19/17 08:19 O2 Sat by Pulse Oximetry 98 06/19/17 08:19 Pain Scale Pain Intensity 0 - Physical Exam General Appearance: no apparent distress, alert Eye Exam: PERRL/EOMI, eyes nml inspection Ears, Nose, Throat Exam: normal ENT inspection, TMs normal, pharynx normal, moist mucous membranes Neck Exam: normal inspection, non-tender, supple, full range of motion Respiratory Exam: normal breath sounds, lungs clear, No respiratory distress Cardiovascular Exam: regular rate/rhythm, normal heart sounds, normal peripheral pulses Gastrointestinal/Abdomen Exam: soft, normal bowel sounds, other (OBESE SUPRAPUBIC OSTOMY SITE WITH ABRASION OF OUTER LUMINAL WALL, NO HEMORRHAGE), No tenderness, No mass Back Exam: normal inspection, normal range of motion, No CVA tenderness, No vertebral tenderness Extremity Exam: normal inspection, normal range of motion, pelvis stable Neurologic Exam: alert, oriented x 3, cooperative, normal mood/affect, nml cerebellar function, nml station & gait, sensation nml, No motor deficits Skin Exam: normal color, warm, dry, No rash Lymphatic Exam: No adenopathy SpO2 Interpretation: normal SpO2: 98 Oxygen Delivery: Room Air Ordered Tests: Active Orders 24 hr Category Date Time Status Catheter-[place] STAT Care 06/19/17 08:27 Active UA W/ MICROSCOPIC Stat Lab 06/19/17 08:48 Completed Medication Summary Discontinued Medications Generic Name Dose Route Start Last Admin Trade Name Freq PRN Reason Stop Dose Admin Oxycodone HCl 10 mg 06/19/17 08:38 06/19/17 09:02 Oxycontin 10 Mg Er PO 06/19/17 08:39 10 mg STAT ONE Administration Lab/Rad Data: Laboratory Results 06/19/17 Range/Units 08:48 Ur Collection Type CCMS Urine Color YELLOW (YELLOW) Urine Appearance CLEAR (CLEAR) Urine pH 8.0 (5-6) Ur Specific [place] 1.005 (1.005-1.025) Urine Protein NEGATIVE (Negative) Urine Ketones NEGATIVE (NEGATIVE) Urine Blood 250 (0-5) Collin/ul Urine Nitrite NEGATIVE (NEGATIVE) Urine Bilirubin NEGATIVE (NEGATIVE) Urine Urobilinogen NORMAL (0-1) mg/dL Ur Leukocyte Esterase 2+ (NEGATIVE) Urine Microscopic RBC 15-25 (0-2) /HPF Urine Microscopic WBC 25-50 (0-5) /HPF Ur Epithelial Cells FEW (FEW) /HPF Urine Bacteria FEW (NEGATIVE) /HPF Urine Glucose NEGATIVE (NEGATIVE) mg/dL Specimen Received 06/19/17 0858 - Progress Progress: unchanged Progress Note: 06/19/17 08:42 INSERTION OF 16 WINIFRED BARNEY CATHETER SUPRPUBIC X 1 ATTEMPT, BULB INFLATED 10ML STERILE WATER, CLEAR URINE 06/19/17 09:33 ADMINISTERED BACTRIM DS ORALLY Counseled pt/family regarding: lab results, diagnosis - Departure Time of Disposition: 10:00 Departure Disposition: Home Clinical Impression: SUPRAPUBIC CATHETER PLACEMENT Condition: Stable Critical Care Time: No Referrals: HANK MERA [Primary Care Provider] - Additional Instructions: CONTINUE ALL CURRENT MEDICATIONS. FOLLOWUP WITH YOUR PRIMARY CARE PROVIDER NEEDED.
[2017-06-19] MEDS ORDERED: Oxycontin 10 MG ER PO ONE (08:38)
[2017-06-19 09:00] LABS: Appearance CLEAR (CLEAR); Bilirubin NEGATIVE (NEGATIVE); Blood 250 Ery/ul (0-5); Glucose NEGATIVE (NEGATIVE); Ketones NEGATIVE (NEGATIVE); Nitrite NEGATIVE (NEGATIVE); Protein,Urine Dip NEGATIVE (Negative); Specific Gravity 1.005 (1.005-1.025); Urobilinogen NORMAL mg/dL (0-1)
[2017-06-19 09:05] LABS: Bacteria FEW /HPF (NEGATIVE); Epithelial Cells FEW /HPF (FEW); WBC 25-50 /HPF (0-5)
[2017-06-19 09:23] LABS: Leukocyte Esterase 2+ (NEGATIVE)
[2017-06-19 10:12] VITALS: BP 144/82; PULSE 78
[2017-06-20 07:22] VITALS: O2SAT 98
== END 2017-06-19 10:12 ==
LOC: ED 08:18
DX: Z46.6 Encounter for fitting and adjustment of urinary device (principal)
CPT/HCPCS: 51702; 81000; 99283; A9270-GY

== ENCOUNTER 2017-07-15 15:25 | Emergency (ER) | payer MEDICARE ==
[2017-07-15 15:33] VITALS: O2SAT 95
[2017-07-15] MEDS ORDERED: BUMEX 1 MG IV STA (16:08)
[2017-07-15] MEDS ORDERED: Sodium Chloride 0.9% 1000 ML 1,000 ML IV SCH (16:15)
--- NOTE | 2017-07-15 16:25 | XRAY ---
Indication: Cough. Leg swelling. Comparison: December 08, 2016. Portable chest is clear. Heart and mediastinal structures within normal limits for AP portable technique. Bony thorax intact. Impression: Nonacute chest.
[2017-07-15] MEDS ORDERED: Sodium Chloride 0.9% 1000 ML 1,000 ML ONE (16:38)
[2017-07-15] MEDS ORDERED: BUMEX 1 MG ONE (16:38)
[2017-07-15 16:41] LABS: BASOPHIL % 0.3 % (0.0-0.4); Basophil (Absolute #) 0.01 (0-0.4); Eosinophil % 3.4 % (0.00-5.0); Eosinophil (Absolute #) 0.12 (0-0.5); Granulocyte Absolute (ANC) 2.22 (1.4-6.9); Hematocrit 42.1 % (42-50); Hemoglobin 13.8 gm/dl (12.5-18.0); Lymphocyte (Absolute #) 0.86 (1.0-4.6); Mean Cell Volume 94.4 fl (78-100); Mean Corpuscular Hemoglobin 30.9 pg (26-32); Mean Corpuscular Hgb Concent. 32.8 g/dl (32-36); Mean Platelet Volume 11.3 fl (6-9.5); Monocyte (Absolute #) 0.37 (0.0-1.3); Monocytes % 10.3 % (0.0-12.0); Platelet Count 61 K/mm3 (150-450); Red Blood Count 4.46 M/mm3 (4.1-5.6); White Blood Count 3.6 K/mm3 (4.0-10.5)
[2017-07-15 16:59] LABS: INR 1.31 (0.8-3.0)
[2017-07-15 17:06] LABS: AMYLASE 51 U/L (25-115); LIPASE 288 U/L (73-393)
[2017-07-15 17:16] LABS: ALBUMIN 2.8 g/dL (3.4-5.0); ANION GAP 10.4 MEQ/L (5-15); BILIRUBIN,TOTAL 0.8 mg/dL (0.2-1.0); Carbon Dioxide 31.2 mEq/L (21-32); Creatinine 1 1.45 mg/dl (0.55-1.30); Potassium 3.8 mEq/L (3.5-5.1); Total Protein 7.1 gm/dL (6.4-8.2)
[2017-07-15] MEDS ORDERED: NovoLIN R IV ONE (17:28)
[2017-07-15] MEDS ORDERED: NovoLIN R ONE (18:09)
[2017-07-15 18:38] VITALS: BP 165/88; PULSE 82
[2017-07-15 19:50] LABS: Appearance CLOUDY (CLEAR)
[2017-07-15 19:51] LABS: Bilirubin NEGATIVE (NEGATIVE); Blood 250 Ery/ul (0-5); Glucose 1000 mg/dL (NEGATIVE); Ketones NEGATIVE (NEGATIVE); Leukocyte Esterase 1+ (NEGATIVE); Nitrite POSITIVE (NEGATIVE); Protein,Urine Dip NEGATIVE (Negative); Urobilinogen NORMAL mg/dL (0-1)
[2017-07-15 19:52] LABS: Amourphous Crystal FEW /HPF (NEGATIVE); Bacteria MANY /HPF (NEGATIVE)
--- NOTE | 2017-07-15 20:23 | ERPHSYRPT ---
- History of Present Illness Time Seen by Provider: 07/15/17 15:45 Source: patient, half-way records Exam Limitations: clinical condition Patient Subjective Stated Complaint: PT COMES TO ED FROM LOCAL [facility] BY EMS- REPROTS PT HAS HAD BILATERAL SWELLING FOR MARIE 1 WEEK-HAS GAINED 6 LBS IN ONE WEEK Triage Nursing Assessment: PT IS ALERT-DENIES SOB-DENIES PAIN-BILATERAL PITTING EDEMA NOTED Physician History: PATIENT WITH A HISTORY OF COPD, DEMENTIA, TYPE 2 DIABETES, COMPLAINS OF GENERALIZE SWELLING IN LOWER EXTEMITIES, ASSOCIATED WITH PAIN IN BOTH LEGS. DENIES DIFFICULTY BREATHING, SHORTNESS OF BREATH OR CHEST PAIN. Timing/Duration: day(s) Severity: moderate Modifying Factors: Improves With: movement Allergies/Adverse Reactions: metformin Allergy (Mild, Verified 07/15/17 18:38) Diarrhea phenytoin sodium [From Dilantin] Allergy (Mild, Verified 07/15/17 18:38) phenytoin sodium extended [From Dilantin] Allergy (Mild, Verified 07/15/17 18:38 ) carbamazepine [From Tegretol] Allergy (Unknown, Verified 07/15/17 18:38) Home Medications: Aripiprazole [Abilify] 5 mg PO HS 06/19/17 [History] Escitalopram Oxalate [Lexapro] 20 mg PO HS 06/19/17 [History] Folic Acid 1 mg [Folate 1 mg] 1 mg PO DAILY 06/19/17 [History] Lactulose 10 gm PO QID 06/19/17 [History] Levothyroxine Sodium 75 Mcg [Synthroid 75 Mcg] 75 mcg PO DAILY 06/19/17 [ History] Modafinil [Provigil] 200 mg PO DAILY 06/19/17 [History] Multivitamin [Multivitamins] 1 each PO DAILY 06/19/17 [History] Oxycodone HCl 5 mg Ir [Oxy-IR 5 MG] 10 mg PO TID 06/19/17 [History] PANTOPRAZOLE 40 mg Tablet [Protonix 40MG Tablet] 40 mg PO DAILY 06/19/17 [ History] Potassium Chloride 20 Meq [Klor-Con 20 MEQ] 40 meq PO UD 06/19/17 [History] Thiamine HCl 100 mg [Vitamin B-1 100 mg] 100 mg PO DAILY 06/19/17 [History ] Tolterodine Tartrate [Detrol] 4 mg PO DAILY 06/19/17 [History] Hx Tetanus, Diphtheria Vaccination/Date Given: Yes Hx Influenza Vaccination/Date Given: No Hx Pneumococcal Vaccination/Date Given: No Immunizations Up to Date: Yes - Review of Systems Constitutional: No Fever, No Chills Eyes: No Symptoms Ears, Nose, & Throat: No Symptoms Respiratory: No Symptoms, No Cough, No Dyspnea Cardiac: No Chest Pain, No Edema, No Syncope Abdominal/Gastrointestinal: No Symptoms, No Abdominal Pain, No Nausea, No Vomiting, No Diarrhea Genitourinary Symptoms: No Symptoms, No Dysuria Musculoskeletal: Other (PAIN WITH SWELLING IN BOTH LEGS), No Back Pain, No Neck Pain Skin: No Rash Neurological: No Symptoms, No Dizziness, No Focal Weakness, No Sensory Changes Psychological: No Symptoms Endocrine: No Symptoms All Other Systems: Reviewed and Negative - Past Medical History Pertinent Past Medical History: Yes Neurological History: Alzheimer's Disease, Dementia, Seizures, Stroke, TIA ENT History: No Pertinent History Cardiac History: High Cholesterol, Hypertension Respiratory History: Bronchitis, COPD, Sleep Apnea Endocrine Medical History: Diabetes Type II, Hypothyroidism Musculoskeletal History: No Pertinent History GI Medical History: Cirrhosis History: Other Psycho-Social History: Bipolar, Depression Male Reproductive Disorders: No Pertinent History Other Medical History: URINARY INCONTINENCE/retention - Past Surgical History Past Surgical History: Yes Neuro Surgical History: No Pertinent History Cardiac: No Pertinent History Respiratory: No Pertinent History Gastrointestinal: No Pertinent History Genitourinary: No Pertinent History Musculoskeletal: Orthopedic Surgery Male Surgical History: Other Other Surgical History: LATE CIRCUMCISION - tip of FINGER AMPUTATION. SUPRAPUBIC CATHETER PLACED 07/11/14 - Social History Smoking Status: Former smoker How long have you smoked: YRS Exposure to second hand smoke: No Alcohol Use: None Drug Use: none Patient Lives Alone: No Significant Family History: heart disease, diabetes - Nursing Vital Signs Nursing Vital Signs: Initial Vital Signs Temperature 98.9 F 07/15/17 15:27 Pulse Rate 80 07/15/17 15:27 Respiratory Rate 20 07/15/17 15:27 Blood Pressure 149/69 07/15/17 15:27 O2 Sat by Pulse Oximetry 95 07/15/17 15:27 Pain Scale Pain Intensity 0 - Physical Exam General Appearance: no apparent distress, alert Eye Exam: PERRL/EOMI, eyes nml inspection Ears, Nose, Throat Exam: normal ENT inspection, TMs normal, pharynx normal, moist mucous membranes Neck Exam: normal inspection, non-tender, supple, full range of motion Respiratory Exam: normal breath sounds, lungs clear, No respiratory distress Cardiovascular Exam: regular rate/rhythm, normal heart sounds, normal peripheral pulses Gastrointestinal/Abdomen Exam: soft, normal bowel sounds, No tenderness ( INFRAUMBILICAL TENDEDRNESS, NO GUARDING OR REBOUND TENDERNESS,), No mass Back Exam: normal inspection, normal range of motion, No CVA tenderness, No vertebral tenderness Extremity Exam: normal range of motion, pelvis stable, swelling (3+ PITTING EDEMA, BILATERAL CALF TENDERNESS) Neurologic Exam: alert, oriented x 3, cooperative, normal mood/affect, nml cerebellar function, nml station & gait, sensation nml, No motor deficits Skin Exam: normal color, warm, dry, No rash Lymphatic Exam: No adenopathy SpO2 Interpretation: normal SpO2: 95 Oxygen Delivery: Room Air - Course EKG Interpreted by Me: RATE, Sinus Rhythm - Radiology Exams Chest X-ray Interpretation: Interpreted by me, Negative, No Infiltrates - CT Exams Abdomen/Pelvis CT Interpretation: Discussed w/radiologist (STABLE CIRRHOSIS, 20CM SPLENOMEGALY , SPLENORENAL VARICES, GALLSTONES, NO BOWEL OBSTRUCTION. THERE ARE A FEW BILATERAL RENAL CYSTS) Ordered Tests: Active Orders 24 hr Category Date Time Status EKG-ER Only STAT Care 07/15/17 16:03 Active ABDOMEN AND PELVIS W CONTRAST [CT] Stat Exams 07/15/17 16:06 Taken CHEST 1 VIEW (PORTABLE) Stat Exams 07/15/17 16:03 Completed VENOUS BILATERAL EXTREMITY [US] Stat Exams 07/15/17 17:00 Taken AMYLASE Stat Lab 07/15/17 16:27 Completed CBC W DIFF Stat Lab 07/15/17 16:27 Completed CMP Stat Lab 07/15/17 16:27 Completed CULTURE,URINE Stat Lab 07/15/17 19:20 Received LIPASE Stat Lab 07/15/17 16:27 Completed NT PRO BNP Stat Lab 07/15/17 16:27 Completed PT INR [PROTIME WITH INR] Stat Lab 07/15/17 16:27 Completed TROPONIN Q3H Lab 07/15/17 16:27 Completed TROPONIN Q3H Lab 07/15/17 19:30 Received TROPONIN Q3H Lab 07/15/17 22:15 Ordered TROPONIN Q3H Lab 07/16/17 01:15 Ordered TROPONIN Q3H Lab 07/16/17 04:15 Ordered UA W/ MICROSCOPIC Stat Lab 07/15/17 19:20 Completed Medication Summary Generic Name Dose Route Start Last Admin Trade Name Kiki PRN Reason Stop Dose Admin Sodium Chloride 1,000 mls @ 30 mls/hr 07/15/17 16:15 07/15/17 17:04 Sodium Chloride 0.9% 1000 Ml IV 08/14/17 16:14 30 mls/hr .Q24H CARMEN Administration Discontinued Medications Generic Name Dose Route Start Last Admin Trade Name Sergioq PRN Reason Stop Dose Admin Bumetanide 2 mg 07/15/17 16:08 07/15/17 17:04 Bumex 1 Mg IV 07/15/17 16:09 2 mg STAT STA Administration Bumetanide Confirm 07/15/17 16:38 Bumex 1 Mg Administered 07/15/17 16:39 Dose 2 mg .ROUTE .STK-MED ONE Insulin Human Regular 4 unit 07/15/17 17:28 07/15/17 18:15 Novolin R IV 07/15/17 17:29 4 unit STAT ONE Administration Insulin Human Regular Confirm 07/15/17 18:09 Novolin R Administered 07/15/17 18:10 Dose 4 unit .ROUTE .STK-MED ONE Lab/Rad Data: Laboratory Result Diagrams 07/15/17 16:27 07/15/17 16:27 Laboratory Results 07/15/17 07/15/17 07/15/17 Range/Units 19:20 16:27 16:27 WBC (4.0-10.5) K/mm3 RBC (4.1-5.6) M/mm3 Hgb (12.5-18.0) gm/dl Hct (42-50) % MCV (78-100) fl MCH (26-32) pg MCHC (32-36) g/dl RDW (11.5-14.0) % Plt Count (150-450) K/mm3 MPV (6-9.5) fl Gran % (36.0-66.0) % Lymphocytes % (24.0-44.0) % Monocytes % (0.0-12.0) % Eosinophils % (0.00-5.0) % Basophils % (0.0-0.4) % Basophils # (0-0.4) INR 1.31 (0.8-3.0) Sodium (136-145) mEq/L Potassium (3.5-5.1) mEq/L Chloride (98-107) mEq/L Carbon Dioxide (21-32) mEq/L Anion Gap (5-15) MEQ/L BUN (9-20) mg/dL Creatinine (0.55-1.30) mg/dl Estimated GFR ML/MIN Glucose (70-110) MG/DL Calcium (8.5-10.1) mg/dL Total Bilirubin (0.2-1.0) mg/dL AST (15-37) U/L ALT (12-78) U/L Alkaline Phosphatase (46-116) U/L Troponin I (0.000-0.056) ng/ml NT-Pro-B Natriuret Pep (0-125) pg/ml Serum Total Protein (6.4-8.2) gm/dL Albumin (3.4-5.0) g/dL Amylase 51 (25-115) U/L Lipase 288 (73-393) U/L Ur Collection Type CCMS Urine Color LT.YELLOW (YELLOW) Urine Appearance CLOUDY (CLEAR) Urine pH 7.0 (5-6) Ur Specific Owings 1.010 (1.005-1.025) Urine Protein NEGATIVE (Negative) Urine Ketones NEGATIVE (NEGATIVE) Urine Blood 250 (0-5) Collin/ul Urine Nitrite POSITIVE (NEGATIVE) Urine Bilirubin NEGATIVE (NEGATIVE) Urine Urobilinogen NORMAL (0-1) mg/dL Ur Leukocyte Esterase 1+ (NEGATIVE) Urine Microscopic RBC 10-15 (0-2) /HPF Urine Microscopic WBC 2-5 (0-5) /HPF Amorphous Crystals FEW (NEGATIVE) /HPF Urine Bacteria MANY (NEGATIVE) /HPF Urine Culture Reflexed YES (NO) Urine Glucose 1000 (NEGATIVE) mg/dL Specimen Received 07-15-17 1950 07/15/17 07/15/17 07/15/17 Range/Units 16:27 16:27 16:27 WBC 3.6 L (4.0-10.5) K/mm3 RBC 4.46 (4.1-5.6) M/mm3 Hgb 13.8 (12.5-18.0) gm/dl Hct 42.1 (42-50) % MCV 94.4 (78-100) fl MCH 30.9 (26-32) pg MCHC 32.8 (32-36) g/dl RDW 14.0 (11.5-14.0) % Plt Count 61 L (150-450) K/mm3 MPV 11.3 H (6-9.5) fl Gran % 62.0 (36.0-66.0) % Lymphocytes % 24.0 (24.0-44.0) % Monocytes % 10.3 (0.0-12.0) % Eosinophils % 3.4 (0.00-5.0) % Basophils % 0.3 (0.0-0.4) % Basophils # 0.01 (0-0.4) INR (0.8-3.0) Sodium 140 (136-145) mEq/L Potassium 3.8 (3.5-5.1) mEq/L Chloride 102 (98-107) mEq/L Carbon Dioxide 31.2 (21-32) mEq/L Anion Gap 10.4 (5-15) MEQ/L BUN 11 (9-20) mg/dL Creatinine 1.45 H (0.55-1.30) mg/dl Estimated GFR 54 ML/MIN Glucose 429 H (70-110) MG/DL Calcium 9.0 (8.5-10.1) mg/dL Total Bilirubin 0.80 (0.2-1.0) mg/dL AST 58 H (15-37) U/L ALT 59 (12-78) U/L Alkaline Phosphatase 100 (46-116) U/L Troponin I < 0.017 (0.000-0.056) ng/ml NT-Pro-B Natriuret Pep 41 (0-125) pg/ml Serum Total Protein 7.1 (6.4-8.2) gm/dL Albumin 2.8 L (3.4-5.0) g/dL Amylase (25-115) U/L Lipase (73-393) U/L Ur Collection Type Urine Color (YELLOW) Urine Appearance (CLEAR) Urine pH (5-6) Ur Specific Owings (1.005-1.025) Urine Protein (Negative) Urine Ketones (NEGATIVE) Urine Blood (0-5) Collin/ul Urine Nitrite (NEGATIVE) Urine Bilirubin (NEGATIVE) Urine Urobilinogen (0-1) mg/dL Ur Leukocyte Esterase (NEGATIVE) Urine Microscopic RBC (0-2) /HPF Urine Microscopic WBC (0-5) /HPF Amorphous Crystals (NEGATIVE) /HPF Urine Bacteria (NEGATIVE) /HPF Urine Culture Reflexed (NO) Urine Glucose (NEGATIVE) mg/dL Specimen Received - Progress Progress: improved Progress Note: 07/15/17 20:38 IV BUMEX 2MG , DIURESIS 1500ML Counseled pt/family regarding: lab results, diagnosis, need for follow-up, rad results - Departure Time of Disposition: 20:45 Departure Disposition: Home Clinical Impression: DEPENDENT EDEMA, URINARY TRACT INFECTION Condition: Stable Critical Care Time: No Referrals: HANK MERA [Primary Care Provider] - Prescriptions: Furosemide 40 mg [Lasix 40 MG] 40 mg PO DAILY #10 tablet Levofloxacin [Levaquin] 500 mg PO DAILY #10 tablet
--- NOTE | 2017-07-16 08:37 | XRAY ---
Indication: Abdominal distention. Hand and feet swelling. Multiple contiguous axial images obtained through the abdomen and pelvis using 80 cc Isovue 370 contrast only. Comparison: February 11, 2017. Lung bases are essentially clear. Heart is not enlarged. Noncontrasted stomach and bowel loops appear nonobstructed. There is again mild diffuse scattered colonic fecal debris throughout. Gallbladder partially contracted again with gallstones near the neck of the gallbladder. Liver again appears cirrhotic without ascites. Spleen remains enlarged today measuring 20 cm in greatest dimension. There are again spleno renal varices. Stable suprapubic catheter. No free fluid/air. There is suboptimal visceral and renal enhancement possibly from suboptimal IV contrast injection. Stable 1 cm right upper pole renal cyst. Remaining pancreas, adrenal glands, kidneys, ureters, and aorta appear unremarkable. No pathologic retroperitoneal lymphadenopathy. Osseous structures intact again with mild degenerative changes throughout spine and prominent T12 Schmorl node. Stable small fatty umbilical and small fatty right inguinal hernias. Impression: 1. Mild fecal stasis without obstruction. 2. Again cirrhosis without ascites. There remains secondary findings including splenomegaly and splenorenal varices. 3. Stable right renal cyst and fatty umbilical/right inguinal hernias. 2. No acute intra-abdominal/pelvic abnormalities on this noncontrast exam. CT DI 34.95
--- NOTE | 2017-07-16 08:40 | XRAY ---
Indication: Bilateral leg pain and swelling. Two-dimensional sonogram and color Doppler imaging of the major venous vessels of the left and right leg was performed. Comparison: August 21, 2014. Again no thrombus seen in the examined deep venous vessels of the left and right leg including greater saphenous veins. Veins demonstrate normal compressibility. Venous waveforms are normal with and without augmentation. There is mild bilateral calf subcutaneous edema without suspicious mass or abnormal fluid collection. Impression: Left and right legs again negative for DVT. Comment: Preliminary report was given.
== END 2017-07-15 21:17 ==
LOC: ED 15:25
DX: R60.9 Edema, unspecified (principal); N39.0 Urinary tract infection, site not specified; G30.9 Alzheimer's disease, unspecified; F02.80 Dementia in other diseases classified elsewhere, unspecified severity, without behavioral disturbance, psychotic disturbance, mood disturbance, and anxiety; G40.909 Epilepsy, unspecified, not intractable, without status epilepticus; I10 Essential (primary) hypertension; G47.30 Sleep apnea, unspecified; E11.9 Type 2 diabetes mellitus without complications; K74.60 Unspecified cirrhosis of liver; E03.9 Hypothyroidism, unspecified; F31.9 Bipolar disorder, unspecified; J44.9 Chronic obstructive pulmonary disease, unspecified; R33.9 Retention of urine, unspecified; R32 Unspecified urinary incontinence; Z79.899 Other long term (current) drug therapy; Z86.73 Personal history of transient ischemic attack (TIA), and cerebral infarction without residual deficits
CPT/HCPCS: 96374; 99283; 93005; 82150; 81000; 85610; 36415; 83690; 83880; 87186; 85025; 87077; 80053; 84484; 87086; 93970; 71045; 74177; P9612; 96360; 96361; 96375; 99284; A9270-GY

== ENCOUNTER 2017-07-24 20:13 | Observation (INO) | payer MEDICARE ==
[2017-07-24] MEDS ORDERED: Sodium Chloride 0.9% 1000 ML 1,000 ML IV SCH (20:30)
[2017-07-24] MEDS ORDERED: Sodium Chloride 0.9% 1000 ML 1,000 ML ONE (20:31)
--- NOTE | 2017-07-24 20:32 | ERPHSYRPT ---
- History of Present Illness Time Seen by Provider: 07/24/17 20:27 Source: patient Exam Limitations: no limitations Physician History: Patient arrives from the [facility] via [facility]ics with complaint of increased blood sugars at the [facility] today patient apparently has received insulin but blood sugars remain high. Patient also apparently had complained of shortness of breath when the medics picked him up. Patient was given DuoNeb treatment and Solu-Medrol 125 IV. Patient currently not short of breath. Past medical history includes Alzheimer's dementia, seizures, stroke, TIA, hyperlipidemia, high blood pressure, bronchitis, COPD, sleep apnea. Past surgical history includes diabetes type 2, hypothyroidism, cirrhosis, bipolar disease, urinary incontinence. Past surgical history includes orthopedic surgery, suprapubic catheter, cholecystectomy, appendectomy, Timing/Duration: today Severity: moderate Modifying Factors: Improves With: nothing Associated Symptoms: shortness of breath, other (chronic swelling in the patient 's legs), No nausea, No vomiting, No abdominal pain, No heartburn, No diaphoresis, No cough, No chills, No chest pain, No fever, No headaches, No loss of appetite, No malaise, No rash, No syncope, No seizure, No weakness Allergies/Adverse Reactions: metformin Allergy (Mild, Verified 07/15/17 18:38) Diarrhea phenytoin sodium [From Dilantin] Allergy (Mild, Verified 07/15/17 18:38) phenytoin sodium extended [From Dilantin] Allergy (Mild, Verified 07/15/17 18:38 ) carbamazepine [From Tegretol] Allergy (Unknown, Verified 07/15/17 18:38) Home Medications: Aripiprazole [Abilify] 5 mg PO HS 06/19/17 [History] Escitalopram Oxalate [Lexapro] 20 mg PO HS 06/19/17 [History] Folic Acid 1 mg [Folate 1 mg] 1 mg PO DAILY 06/19/17 [History] Lactulose 10 gm PO QID 06/19/17 [History] Levothyroxine Sodium 75 Mcg [Synthroid 75 Mcg] 75 mcg PO DAILY 06/19/17 [ History] Modafinil [Provigil] 200 mg PO DAILY 06/19/17 [History] Multivitamin [Multivitamins] 1 each PO DAILY 06/19/17 [History] Oxycodone HCl 5 mg Ir [Oxy-IR 5 MG] 10 mg PO TID 06/19/17 [History] PANTOPRAZOLE 40 mg Tablet [Protonix 40MG Tablet] 40 mg PO DAILY 06/19/17 [ History] Potassium Chloride 20 Meq [Klor-Con 20 MEQ] 40 meq PO Q4HWA 06/19/17 [History] Thiamine HCl 100 mg [Vitamin B-1 100 mg] 100 mg PO DAILY 06/19/17 [History ] Acetaminophen [Tylenol] 650 mg PO Q4HPRN PRN 07/24/17 [History] Amiloride HCl 5 mg PO BID 07/24/17 [History] Ascorbic Acid/Ascorbate Sodium [Vitamin C 250 mg Tablet Chew] 750 mg PO BID [History] Aspirin/Acetaminophen/Caffeine [Excedrin Migraine Caplet] 1 tab PO BIDPRN PRN [History] Bumetanide [Bumex] 4 mg PO BID 07/24/17 [History] Calcium Carbonate/Vitamin D3 [Calcium 600 + Vit D Tablet] 1 tab PO BID 07/24/17 [History] Cephalexin Mh 500 mg [Keflex 500 mg] 500 mg PO DAILY 07/24/17 [History] Clonazepam 0.5 mg [Klonopin 0.5 MG] 0.25 mg PO BID 07/24/17 [History] Clonazepam [Klonopin] 1 tab PO TID 07/24/17 [History] Dextran 70/Hypromellose [Artificial Tears] 1 drop OP TID 07/24/17 [History] Hydrocodone Bit/Acetaminophen [Hydrocodon-Acetaminophn 10-325] 1 tab PO DAILY PRN PRN 07/24/17 [History] Insulin Aspart [NovoLOG Insulin] 07/24/17 [History] Insulin Detemir [Levemir] 35 unit SQ QHS 07/24/17 [History] Levetiracetam 250 MG [Keppra 250 MG] 250 mg PO BID 07/24/17 [History] Magnesium Hydroxide 30 ml [Milk of Magnesia 30 ml] 30 ml PO DAILY PRN PRN 07/24/17 [History] Neomycin Sulfate 1 tab PO TID PRN 07/24/17 [History] Pregabalin 50 mg [Lyrica 50MG] 50 mg PO BID 07/24/17 [History] Hx Tetanus, Diphtheria Vaccination/Date Given: Yes Hx Influenza Vaccination/Date Given: No Hx Pneumococcal Vaccination/Date Given: No - Review of Systems Constitutional: No Fever, No Chills Eyes: No Symptoms Ears, Nose, & Throat: No Symptoms Respiratory: Dyspnea, No Cough, No Cyanosis, No Dyspnea on Exertion (RAMIREZ), No Stridor, No Wheezing Cardiac: Edema (Him chronic edema lower extremities) Abdominal/Gastrointestinal: No Abdominal Pain, No Nausea, No Vomiting, No Diarrhea Genitourinary Symptoms: No Dysuria Musculoskeletal: No Back Pain, No Neck Pain Skin: No Symptoms, No Rash Neurological: No Symptoms Psychological: No Symptoms Endocrine: No Symptoms All Other Systems: Reviewed and Negative - Past Medical History Pertinent Past Medical History: Yes Neurological History: Alzheimer's Disease, Dementia, Seizures, Stroke, TIA ENT History: No Pertinent History Cardiac History: High Cholesterol, Hypertension Respiratory History: Bronchitis, COPD, Sleep Apnea Endocrine Medical History: Diabetes Type II, Hypothyroidism Musculoskeletal History: No Pertinent History GI Medical History: Cirrhosis History: Other Psycho-Social History: Bipolar, Depression Male Reproductive Disorders: No Pertinent History Other Medical History: URINARY INCONTINENCE/retention - Past Surgical History Past Surgical History: Yes Neuro Surgical History: No Pertinent History Cardiac: No Pertinent History Respiratory: No Pertinent History Gastrointestinal: No Pertinent History Genitourinary: No Pertinent History Musculoskeletal: Orthopedic Surgery Male Surgical History: Other Other Surgical History: LATE CIRCUMCISION - tip of FINGER AMPUTATION. SUPRAPUBIC CATHETER PLACED 07/11/14 - Social History Smoking Status: Former smoker How long have you smoked: YRS Exposure to second hand smoke: No Alcohol Use: None Drug Use: none Patient Lives Alone: No Significant Family History: heart disease, diabetes - Nursing Vital Signs Nursing Vital Signs: Initial Vital Signs Temperature 98.8 F 07/24/17 20:27 Pulse Rate 86 07/24/17 20:27 Respiratory Rate 20 07/24/17 20:27 Blood Pressure 123/59 07/24/17 20:27 O2 Sat by Pulse Oximetry 93 L 07/24/17 20:27 Pain Scale Pain Intensity 0 - Physical Exam General Appearance: other (well-developed morbidly obese white male, chronic tremor upper extremity) Eye Exam: PERRL/EOMI, eyes nml inspection Ears, Nose, Throat Exam: normal ENT inspection, TMs normal, pharynx normal, moist mucous membranes Neck Exam: normal inspection, non-tender, supple, full range of motion Respiratory Exam: normal breath sounds, lungs clear, No respiratory distress Cardiovascular Exam: regular rate/rhythm, normal heart sounds, normal peripheral pulses Gastrointestinal/Abdomen Exam: soft, normal bowel sounds, No tenderness, No mass Back Exam: normal inspection, normal range of motion, No CVA tenderness, No vertebral tenderness Extremity Exam: normal range of motion, other (2+ edemalower extremities) Neurologic Exam: alert, oriented x 3, cooperative, normal mood/affect, nml cerebellar function, nml station & gait, sensation nml, No motor deficits Skin Exam: normal color, warm, dry, No rash SpO2 Interpretation: normal (94%) - Course Nursing assessment & vital signs reviewed: Yes EKG Interpreted by Me: RATE (80 bpm), Sinus Rhythm, NORMAL AXIS, Other (EKG: Sinus rhythm, 80 bpm, normal axis, no acute ST or T wave changes, moderate amount of artifact, compared to July 15, 2017) - Radiology Exams Chest X-ray Interpretation: Interpreted by me, Other (chest x-ray: No acute disease process noted) Ordered Tests: Active Orders 24 hr Category Date Time Status Accucheck STAT Care 07/24/17 20:24 Active Accucheck STAT Care 07/24/17 22:53 Active EKG-ER Only STAT Care 07/24/17 20:24 Active IV Insertion STAT Care 07/24/17 20:24 Active CHEST 1 VIEW (PORTABLE) Stat Exams 07/24/17 20:27 Taken CBC W DIFF Stat Lab 07/24/17 20:40 Completed CMP Stat Lab 07/24/17 20:40 Completed CULTURE,URINE Stat Lab 07/24/17 21:30 Received NT PRO BNP Stat Lab 07/24/17 20:40 Completed UA W/ MICROSCOPIC Stat Lab 07/24/17 21:30 Completed VENOUS BLOOD GAS Urgent Lab 07/24/17 20:44 Completed Medication Summary Generic Name Dose Route Start Last Admin Trade Name Freq PRN Reason Stop Dose Admin Sodium Chloride 1,000 mls @ 100 mls/hr 07/24/17 20:30 07/24/17 21:36 Sodium Chloride 0.9% 1000 Ml IV 08/23/17 20:29 100 mls/hr .Q10H CARMEN Administration Discontinued Medications Generic Name Dose Route Start Last Admin Trade Name Kiki PRN Reason Stop Dose Admin Insulin Human Regular 6 unit 07/24/17 21:45 07/24/17 21:51 Novolin R IV 07/24/17 21:46 6 unit STAT ONE Administration Insulin Human Regular Confirm 07/24/17 21:50 Novolin R Administered 07/24/17 21:51 Dose 6 unit .ROUTE .[facility] Lab/Rad Data: Laboratory Result Diagrams 07/24/17 20:40 07/24/17 20:40 Laboratory Results 07/24/17 07/24/17 07/24/17 Range/Units 21:30 20:44 20:40 WBC (4.0-10.5) K/mm3 RBC (4.1-5.6) M/mm3 Hgb (12.5-18.0) gm/dl Hct (42-50) % MCV (78-100) fl MCH (26-32) pg MCHC (32-36) g/dl RDW (11.5-14.0) % Plt Count (150-450) K/mm3 MPV (6-9.5) fl Gran % (36.0-66.0) % Lymphocytes % (24.0-44.0) % Monocytes % (0.0-12.0) % Eosinophils % (0.00-5.0) % Basophils % (0.0-0.4) % Basophils # (0-0.4) VBG pH 7.30 L (7.32-7.42) VBG pCO2 at Pat Temp 59 H (42-55) mm/Hg VBG pO2 at Pat Temp 28 (25-40) mm/Hg VBG HCO3 29.0 H (22-28) meq/L VBG O2 Sat (Chase) 58.7 L (95-100) VBG Base Excess 1.1 (-2.0-2.0) VBG Hemoglobin 14.2 VBG Carboxyhemoglobin 3.3 (0.0-6.9) % T HGB POC Potassium 3.7 (3.5-5.1) Sodium (136-145) mEq/L Potassium (3.5-5.1) mEq/L Chloride (98-107) mEq/L Carbon Dioxide (21-32) mEq/L Anion Gap (5-15) MEQ/L BUN (9-20) mg/dL Creatinine (0.55-1.30) mg/dl Estimated GFR ML/MIN Glucose (70-110) MG/DL Calcium (8.5-10.1) mg/dL Total Bilirubin (0.2-1.0) mg/dL AST (15-37) U/L ALT (12-78) U/L Alkaline Phosphatase (46-116) U/L NT-Pro-B Natriuret Pep 30 (0-125) pg/ml Serum Total Protein (6.4-8.2) gm/dL Albumin (3.4-5.0) g/dL Ur Collection Type CATH Urine Color YELLOW (YELLOW) Urine Appearance CLEAR (CLEAR) Urine pH 6.0 (5-6) Ur Specific [place] 1.010 (1.005-1.025) Urine Protein NEGATIVE (Negative) Urine Ketones NEGATIVE (NEGATIVE) Urine Blood 50 (0-5) Collin/ul Urine Nitrite NEGATIVE (NEGATIVE) Urine Bilirubin NEGATIVE (NEGATIVE) Urine Urobilinogen NORMAL (0-1) mg/dL Ur Leukocyte Esterase TRACE (NEGATIVE) Urine Microscopic WBC 10-15 (0-5) /HPF Ur Epithelial Cells FEW (FEW) /HPF Urine Bacteria MANY (NEGATIVE) /HPF Urine Culture Reflexed YES (NO) Urine Glucose 1000 (NEGATIVE) mg/dL Specimen Received 07-24-17 [id number] 07/24/17 07/24/17 Range/Units 20:40 20:40 WBC 4.1 (4.0-10.5) K/mm3 RBC 4.33 (4.1-5.6) M/mm3 Hgb 13.6 (12.5-18.0) gm/dl Hct 40.5 L (42-50) % MCV 93.5 (78-100) fl MCH 31.4 (26-32) pg MCHC 33.6 (32-36) g/dl RDW 14.0 (11.5-14.0) % Plt Count 58 L (150-450) K/mm3 MPV 12.3 H (6-9.5) fl Gran % 57.2 (36.0-66.0) % Lymphocytes % 26.6 (24.0-44.0) % Monocytes % 13.3 H (0.0-12.0) % Eosinophils % 2.7 (0.00-5.0) % Basophils % 0.2 (0.0-0.4) % Basophils # 0.01 (0-0.4) VBG pH (7.32-7.42) VBG pCO2 at Pat Temp (42-55) mm/Hg VBG pO2 at Pat Temp (25-40) mm/Hg VBG HCO3 (22-28) meq/L VBG O2 Sat (Chase) (95-100) VBG Base Excess (-2.0-2.0) VBG Hemoglobin VBG Carboxyhemoglobin (0.0-6.9) % T HGB POC Potassium (3.5-5.1) Sodium 133 L (136-145) mEq/L Potassium 3.7 (3.5-5.1) mEq/L Chloride 98 (98-107) mEq/L Carbon Dioxide 28.6 (21-32) mEq/L Anion Gap 10.0 (5-15) MEQ/L BUN 10 (9-20) mg/dL Creatinine 1.47 H (0.55-1.30) mg/dl Estimated GFR 53 ML/MIN Glucose 544 H* (70-110) MG/DL Calcium 8.7 (8.5-10.1) mg/dL Total Bilirubin 1.30 H (0.2-1.0) mg/dL AST 59 H (15-37) U/L ALT 59 (12-78) U/L Alkaline Phosphatase 97 (46-116) U/L NT-Pro-B Natriuret Pep (0-125) pg/ml Serum Total Protein 6.7 (6.4-8.2) gm/dL Albumin 2.7 L (3.4-5.0) g/dL Ur Collection Type Urine Color (YELLOW) Urine Appearance (CLEAR) Urine pH (5-6) Ur Specific [place] (1.005-1.025) Urine Protein (Negative) Urine Ketones (NEGATIVE) Urine Blood (0-5) Collin/ul Urine Nitrite (NEGATIVE) Urine Bilirubin (NEGATIVE) Urine Urobilinogen (0-1) mg/dL Ur Leukocyte Esterase (NEGATIVE) Urine Microscopic WBC (0-5) /HPF Ur Epithelial Cells (FEW) /HPF Urine Bacteria (NEGATIVE) /HPF Urine Culture Reflexed (NO) Urine Glucose (NEGATIVE) mg/dL Specimen Received - Progress Progress: improved Progress Note: 07/24/17 21:55 Patient had received 1 L of normal saline from medics, Patient's repeat Accu-Chek 421, Patient with 10-15 white cells per high-power field in his urine he is on Keflex , Will give patient Humulin R 6 units. Patient's BMP within normal limits chest x-ray unremarkable EKG normal sinus rhythm no acute ST or T wave changes. Will plan to repeat Accu-Chek in approximately one hour. 07/24/17 23:16 Patient's Accu-Chek now is 354. Patient appears to be stable. I've discussed the patient's case with Dr. Grayson. Will plan to place the patient on observation. Continue IV normal saline. Give patient 35 mg Lantus subcutaneously Will place patient on a high-dose sliding scale with every 4 hour Accu-Cheks. Will continue duo neb treatments every 4 hours. Oxygen and keep saturation greater than 90%. Will avoid steroids at this time. Patient appears to have chronic bronchitis Will avoid antibiotics at this time. Obtain CBC CMP in the morning. - Departure Time of Disposition: 23:18 Departure Disposition: Observation Clinical Impression: Hyperglycemia, Chronic bronchitis with COPD (chronic obstructive pulmonary disease) Condition: Fair Critical Care Time: No Referrals: HANK MERA [Primary Care Provider] -
[2017-07-24 20:48] LABS: BASOPHIL % 0.2 % (0.0-0.4); Basophil (Absolute #) 0.01 (0-0.4); Eosinophil % 2.7 % (0.00-5.0); Eosinophil (Absolute #) 0.11 (0-0.5); Granulocyte Absolute (ANC) 2.32 (1.4-6.9); Granulocytes % 57.2 % (36.0-66.0); Hematocrit 40.5 % (42-50); Hemoglobin 13.6 gm/dl (12.5-18.0); Lymphocyte (Absolute #) 1.08 (1.0-4.6); Lymphocytes % 26.6 % (24.0-44.0); Mean Cell Volume 93.5 fl (78-100); Mean Corpuscular Hemoglobin 31.4 pg (26-32); Mean Corpuscular Hgb Concent. 33.6 g/dl (32-36); Mean Platelet Volume 12.3 fl (6-9.5); Monocyte (Absolute #) 0.54 (0.0-1.3); Monocytes % 13.3 % (0.0-12.0); Platelet Count 58 K/mm3 (150-450); Red Blood Count 4.33 M/mm3 (4.1-5.6); White Blood Count 4.1 K/mm3 (4.0-10.5)
[2017-07-24 20:54] LABS: VBG BASE EXCESS 1.1 (-2.0-2.0); VBG CARBOXYHEMOGLOBIN 3.3 % T HGB (0.0-6.9); VBG HEMOGLOBIN 14.2; VBG O2 SATURATION 58.7 (95-100); VBG POTASSIUM 3.7 (3.5-5.1); VBG pH 7.3 (7.32-7.42)
[2017-07-24 21:11] LABS: ALBUMIN 2.7 g/dL (3.4-5.0); BILIRUBIN,TOTAL 1.3 mg/dL (0.2-1.0); Calcium 8.7 mg/dL (8.5-10.1); Carbon Dioxide 28.6 mEq/L (21-32); Creatinine 1 1.47 mg/dl (0.55-1.30); Potassium 3.7 mEq/L (3.5-5.1); Total Protein 6.7 gm/dL (6.4-8.2)
[2017-07-24 21:44] LABS: Appearance CLEAR (CLEAR); Bilirubin NEGATIVE (NEGATIVE); Blood 50 Ery/ul (0-5); Glucose 1000 mg/dL (NEGATIVE); Ketones NEGATIVE (NEGATIVE); Leukocyte Esterase TRACE (NEGATIVE); Nitrite NEGATIVE (NEGATIVE); Protein,Urine Dip NEGATIVE (Negative); Urobilinogen NORMAL mg/dL (0-1)
[2017-07-24 21:45] LABS: Bacteria MANY /HPF (NEGATIVE); Epithelial Cells FEW /HPF (FEW)
[2017-07-24] MEDS ORDERED: NovoLIN R IV ONE (21:45)
[2017-07-24] MEDS ORDERED: NovoLIN R ONE (21:50)
[2017-07-25] MEDS ORDERED: DUONEB 0.5-3 MG/3 ml Neb IH PRN (00:31)
[2017-07-25 01:08] LABS: Slide Review 1 YES
[2017-07-25] MEDS: NovoLOG Insulin SQ PRN ×5 (02:19→22:20)
[2017-07-25 06:16] LABS: Basophil (Absolute #) 0 (0-0.4); Eosinophil % 0.3 % (0.00-5.0); Eosinophil (Absolute #) 0.01 (0-0.5); Granulocyte Absolute (ANC) 2.98 (1.4-6.9); Granulocytes % 89.2 % (36.0-66.0); Hematocrit 40.2 % (42-50); Hemoglobin 13.4 gm/dl (12.5-18.0); Lymphocyte (Absolute #) 0.29 (1.0-4.6); Lymphocytes % 8.7 % (24.0-44.0); Mean Cell Volume 92.4 fl (78-100); Mean Corpuscular Hemoglobin 30.8 pg (26-32); Mean Corpuscular Hgb Concent. 33.3 g/dl (32-36); Mean Platelet Volume 12.1 fl (6-9.5); Monocyte (Absolute #) 0.06 (0.0-1.3); Monocytes % 1.8 % (0.0-12.0); Platelet Count 43 K/mm3 (150-450); Red Blood Count 4.35 M/mm3 (4.1-5.6); Red Cell Distribution Width 13.5 % (11.5-14.0); White Blood Count 3.3 K/mm3 (4.0-10.5)
[2017-07-25] MEDS: Advair Hfa 115/21 Common canister IH SCH ×2 (06:30→20:01)
[2017-07-25 06:41] LABS: ALBUMIN 2.6 g/dL (3.4-5.0); ANION GAP 13.5 MEQ/L (5-15); BILIRUBIN,TOTAL 1.1 mg/dL (0.2-1.0); Calcium 8.4 mg/dL (8.5-10.1); Carbon Dioxide 24.2 mEq/L (21-32); Creatinine 1 1.57 mg/dl (0.55-1.30); Potassium 4.5 mEq/L (3.5-5.1); Total Protein 6.8 gm/dL (6.4-8.2)
[2017-07-25] MEDS: Sodium Chloride 0.9% 1000 ML 1,000 ML IV SCH ×2 (06:46→17:21)
--- NOTE | 2017-07-25 08:57 | XRAY ---
Indication: Short of breath. Comparison: July 15, 2017. Portable chest remains clear. Heart is not enlarged for AP portable technique. Vascularity normal. No new/acute findings. Impression: Stable nonacute chest.
[2017-07-25 09:30] LABS: Slide Review 1 YES
--- NOTE | 2017-07-25 09:46 | PCM.HP ---
History of Present Illness - Chief Complaint Chief Complaint: hyperglycemia, chronic COPD Date: 07/25/17 History of Present Illness: Mr.COX CHEUNG is a 56 year old male. who has complicated pmh with liver failure and hepatic encephalopathy and insulin dependent diabetes living currently in [facility]. He was reported to have high blood sugar reading Hi on machine and not responsive to insulin in half-way yesterday and was sent to ED. In route to the ED he complained of shortness of breath to the EMT who gave him 125 mg of Solu medrol prior to arrival in the ED. On arrival blood sugar was over 500. He received iv fluids and insulin subcutaneous. I ordered lantus to be given as well and the order is there but no documentation of it being given. He is not sure how high his sugars have been running recently or if this is a change for him. On review of his most recent blood draws the sugar has been in the 300 to 400 range often it appears. he denies chest pain or sob now. He has chronic suprapubic catheter and is being treated for UTI that started tx last weekend. He has chronic asterixis that is unchanged. - Review of Systems Constitutional: No Fever, No Chills Eyes: No Symptoms Ears, Nose, & Throat: No Symptoms Respiratory: No Cough, No Short Of Breath Cardiac: No Chest Pain, No Edema, No Syncope Abdominal/Gastrointestinal: Diarrhea, No Abdominal Pain, No Nausea, No Vomiting Genitourinary Symptoms: No Dysuria Musculoskeletal: No Back Pain, No Neck Pain Skin: No Rash Neurological: No Dizziness, No Focal Weakness, No Sensory Changes Psychological: No Symptoms Endocrine: No Symptoms Hematologic/Lymphatic: No Symptoms Immunological/Allergic: No Symptoms Medications & Allergies Home Medications: Home Medication List Aripiprazole [Abilify] 5 mg PO HS 06/19/17 [History Confirmed 07/24/17] Escitalopram Oxalate [Lexapro] 20 mg PO HS 06/19/17 [History Confirmed 07/24/17] Folic Acid 1 mg [Folate 1 mg] 1 mg PO DAILY 06/19/17 [History Confirmed ] Lactulose 10 gm PO QID 06/19/17 [History Confirmed 07/24/17] Levothyroxine Sodium 75 Mcg [Synthroid 75 Mcg] 75 mcg PO DAILY 06/19/17 [ History Confirmed 07/24/17] Modafinil [Provigil] 200 mg PO DAILY 06/19/17 [History Confirmed 07/24/17] Multivitamin [Multivitamins] 1 each PO DAILY 06/19/17 [History Confirmed ] Oxycodone HCl 5 mg Ir [Oxy-IR 5 MG] 10 mg PO TID 06/19/17 [History Confirmed 07/24/17] PANTOPRAZOLE 40 mg Tablet [Protonix 40MG Tablet] 40 mg PO DAILY 06/19/17 [ History Confirmed 07/24/17] Potassium Chloride 20 Meq [Klor-Con 20 MEQ] 40 meq PO Q4HWA 06/19/17 [History Confirmed 07/24/17] Thiamine HCl 100 mg [Vitamin B-1 100 mg] 100 mg PO DAILY 06/19/17 [ History Confirmed 07/24/17] Furosemide 40 mg [Lasix 40 MG] 40 mg PO DAILY #10 tablet 07/15/17 [Rx Confirmed 07/24/17] Acetaminophen [Tylenol] 650 mg PO Q4HPRN PRN 07/24/17 [History Confirmed ] Amiloride HCl 5 mg PO BID 07/24/17 [History Confirmed 07/24/17] Ascorbic Acid/Ascorbate Sodium [Vitamin C 250 mg Tablet Chew] 750 mg PO BID [History Confirmed 07/24/17] Aspirin/Acetaminophen/Caffeine [Excedrin Migraine Caplet] 1 tab PO BIDPRN PRN [History Confirmed 07/24/17] Bumetanide [Bumex] 4 mg PO BID 07/24/17 [History Confirmed 07/24/17] Calcium Carbonate/Vitamin D3 [Calcium 600 + Vit D Tablet] 1 tab PO BID 07/24/17 [History Confirmed 07/24/17] Cephalexin Mh 500 mg [Keflex 500 mg] 500 mg PO DAILY 07/24/17 [History Confirmed 07/24/17] Clonazepam 0.5 mg [Klonopin 0.5 MG] 0.25 mg PO TID 07/24/17 [History Confirmed 07/25/17] Clonazepam [Klonopin] 0.25 mg PO TID 07/24/17 [History Confirmed 07/25/17] Dextran 70/Hypromellose [Artificial Tears] 1 drop OP TID 07/24/17 [History Confirmed 07/24/17] Hydrocodone Bit/Acetaminophen [Hydrocodon-Acetaminophn 10-325] 1 tab PO DAILY PRN PRN 07/24/17 [History Confirmed 07/24/17] Insulin Aspart [NovoLOG Insulin] 20 units SQ AC 07/24/17 [History Confirmed ] Insulin Detemir [Levemir] 35 unit SQ QHS 07/24/17 [History Confirmed 07/25/17] Levetiracetam 250 MG [Keppra 250 MG] 250 mg PO BID 07/24/17 [History Confirmed 07/24/17] Magnesium Hydroxide 30 ml [Milk of Magnesia 30 ml] 30 ml PO DAILY PRN PRN 07/24/17 [History Confirmed 07/24/17] Neomycin Sulfate 1 tab PO TID PRN 07/24/17 [History Confirmed 07/24/17] Pregabalin 50 mg [Lyrica 50MG] 50 mg PO BID 07/24/17 [History Confirmed ] Cephalexin Monohydrate [Keflex] 500 mg PO QID 07/25/17 [History Confirmed ] Insulin Aspart [NovoLOG Insulin] 1 unit SQ AC 07/25/17 [History Confirmed ] Magnesium Hydroxide 30 ml [Milk of Magnesia 30 ml] 30 ml PO DAILY PRN PRN 07/25/17 [History Confirmed 07/25/17] Menthol [[place]] 1 kedar PO UD 07/25/17 [History Confirmed 07/25/17] Sodium Phosphate,Gosper-Dibasic [Fleet Enema] 1 enema R DAILY PRN PRN 07/25/17 [ History Confirmed 07/25/17] Allergies/Adverse Reactions: Allergies Allergy/AdvReac Type Severity Reaction Status Date / Time metformin Allergy Mild Diarrhea Verified 07/15/17 18:38 phenytoin sodium Allergy Mild Verified 07/15/17 18:38 [From Dilantin] phenytoin sodium extended Allergy Mild Verified 07/15/17 18:38 [From Dilantin] carbamazepine [From Tegretol] Allergy Unknown Verified 07/15/17 18:38 - Past Medical History Past Medical History: Yes Neurological History: Alzheimer's Disease, Dementia, Seizures, Stroke, TIA ENT History: No Pertinent History Cardiac History: High Cholesterol, Hypertension Respiratory History: Bronchitis, COPD, Sleep Apnea Endocrine Medical History: Diabetes Type II, Hypothyroidism Musculoskelatal History: No Pertinent History GI Medical History: Cirrhosis History: Other Pyscho-Social History: Bipolar, Depression Male Reproductive Disorders: No Pertinent History Comment: URINARY INCONTINENCE/retention - Past Surgical History Past Surgical History: Yes Neuro Surgical History: No Pertinent History Cardiac History: No Pertinent History Respiratory Surgery: No Pertinent History GI Surgical History: No Pertinent History Genitourinary Surgical Hx: No Pertinent History Musculskeletal Surgical Hx: Orthopedic Surgery Male Surgical History: Other Other Surgical History: LATE CIRCUMCISION - tip of FINGER AMPUTATION. SUPRAPUBIC CATHETER PLACED 07/11/14 - Social History Smoking Status: Current every day smoker How long have you smoked: YRS Exposure to second hand smoke: Yes Alcohol: None Drug Use: none Significant Family History: heart disease, diabetes - Physical Exam Vital Signs: Vital Signs - 24 hr Temp Pulse Resp BP Pulse Ox 07/25/17 08:20 98.2 F 84 20 124/92 96 07/25/17 07:00 74 20 96 07/25/17 04:00 98.7 F 78 20 130/66 94 L 07/25/17 03:01 93 L 07/25/17 02:53 76 20 95 07/25/17 01:17 99.0 F 133 H 20 112/66 95 07/25/17 00:31 96 07/24/17 22:51 76 20 138/73 94 L 07/24/17 21:16 80 20 110/79 94 L 07/24/17 20:27 98.8 F 86 20 123/59 93 L General Appearance: obese Neurologic Exam: alert, cooperative, other (asterixis of bilateral hands), No confusion Ears, Nose, Throat Exam: dry mucous membranes Neck Exam: non-tender, supple Respiratory Exam: lungs clear Cardiovascular Exam: regular rate/rhythm, normal heart sounds Gastrointestinal/Abdomen Exam: soft, normal bowel sounds, distention, No tenderness, No mass, No guarding Extremity Exam: pedal edema (2+ collins LE) Results - Labs Lab/Micro Results: Accuchecks Date 07/25/17 Date 07/25/17 Time 06:00 Time 02:00 Accucheck Value: 371 Accucheck Value: 358 Lab Results-Last 24 Hours 07/25/17 07/25/17 Range/Units 05:55 05:55 WBC 3.3 L (4.0-10.5) K/mm3 RBC 4.35 (4.1-5.6) M/mm3 Hgb 13.4 (12.5-18.0) gm/dl Hct 40.2 L (42-50) % MCV 92.4 (78-100) fl MCH 30.8 (26-32) pg MCHC 33.3 (32-36) g/dl RDW 13.5 (11.5-14.0) % Plt Count 43 L (150-450) K/mm3 MPV 12.1 H (6-9.5) fl Gran % 89.2 H (36.0-66.0) % Lymphocytes % 8.7 L (24.0-44.0) % Monocytes % 1.8 (0.0-12.0) % Eosinophils % 0.3 (0.00-5.0) % Basophils % 0.0 (0.0-0.4) % Basophils # 0 (0-0.4) Sodium 132 L (136-145) mEq/L Potassium 4.5 (3.5-5.1) mEq/L Chloride 99 (98-107) mEq/L Carbon Dioxide 24.2 (21-32) mEq/L Anion Gap 13.5 (5-15) MEQ/L BUN 14 (9-20) mg/dL Creatinine 1.57 H (0.55-1.30) mg/dl Estimated GFR 49 ML/MIN Glucose 444 H (70-110) MG/DL Calcium 8.4 L (8.5-10.1) mg/dL Total Bilirubin 1.10 H (0.2-1.0) mg/dL AST 54 H (15-37) U/L ALT 56 (12-78) U/L Alkaline Phosphatase 90 (46-116) U/L Serum Total Protein 6.8 (6.4-8.2) gm/dL Albumin 2.6 L (3.4-5.0) g/dL Slides for Path Review YES Accuchecks Date 07/25/17 Date 07/25/17 Time 06:00 Time 02:00 Accucheck Value: 371 Accucheck Value: 358 - Other Procedures and Tests Respiratory Therapy 07/25/17 02:47 BiPap/CPAP Assessment ROUTINE 07/25/17 02:52 neb [Respiratory Nebulizer] PRN 07/25/17 03:07 Respiratory MDI BID 07/25/17 07:00 neb [Respiratory Nebulizer] QID Assessment/Plan (1) Uncontrolled diabetes mellitus with hyperglycemia Current Visit: Yes Status: Acute Assessment & Plan: exacerbated by getting 125 mg of solumedrol in the ambulance prior to arrival at the ED his lantus dose has been increased significantly continue preprandial 20 units with a high dose sliding scale as well continue gentle hydration titrate insulin rapidly to better control no recent A1c available last was 2014 on record will get hopeful for back to ECF when stable in the next 24 hours Code(s): E11.65 - TYPE 2 DIABETES MELLITUS WITH HYPERGLYCEMIA (2) Hepatic encephalopathy Current Visit: Yes Status: Chronic Code(s): K72.90 - HEPATIC FAILURE, UNSPECIFIED WITHOUT COMA (3) Chronic bronchitis with COPD (chronic obstructive pulmonary disease) Current Visit: Yes Status: Chronic Code(s): J44.9 - CHRONIC OBSTRUCTIVE PULMONARY DISEASE, UNSPECIFIED (4) UTI (urinary tract infection) Current Visit: Yes Status: Acute Assessment & Plan: still on keflex culture shows sensitive Code(s): N39.0 - URINARY TRACT INFECTION, SITE NOT SPECIFIED (5) Cerebral arteriosclerosis with history of previous cerebrovascular accident Current Visit: Yes Status: Chronic Code(s): I67.2 - CEREBRAL ATHEROSCLEROSIS ; Z86.73 - PRSNL HX OF TIA (TIA), AND CEREB INFRC W/O RESID DEFICITS
[2017-07-25] MEDS: Lantus Insulin SQ SCH (10:21)
[2017-07-25] MEDS ORDERED: TYLENOL 325 MG PO PRN (10:24)
[2017-07-25] MEDS ORDERED: Norco 10/325 MG Tablet PO PRN (10:24)
[2017-07-25] MEDS ORDERED: NEOMYCIN SULFATE 500 MG PO PRN (10:30)
[2017-07-25] MEDS: Klonopin 0.5 MG PO SCH ×3 (11:21→21:52)
[2017-07-25] MEDS: Vitamin C 500 MG PO SCH ×2 (11:21→21:56)
[2017-07-25] MEDS: Provigil 100MG Tablet PO SCH (11:21)
[2017-07-25] MEDS: Klor Con 10 MEQ PO SCH ×3 (11:22→19:58)
[2017-07-25] MEDS: BUMEX 1 MG PO SCH ×2 (11:23→15:51)
[2017-07-25] MEDS: FOLATE 1 MG PO SCH (11:24)
[2017-07-25] MEDS: Protonix 40MG Tablet PO SCH (11:24)
[2017-07-25] MEDS: KEFLEX 500 MG PO SCH ×4 (11:25→21:54)
[2017-07-25] MEDS: Oxy-IR 5 MG PO SCH ×3 (11:25→21:55)
[2017-07-25] MEDS: MIDAMOR PO SCH ×2 (11:26→22:00)
[2017-07-25] MEDS: LACTULOSE 20 GM/30ML UD CUP PO SCH ×4 (11:27→21:47)
[2017-07-25] MEDS: VITAMIN B-1 100 MG PO SCH (11:35)
[2017-07-25] MEDS: Keppra 250 MG PO SCH ×2 (11:35→21:55)
[2017-07-25] MEDS: SYNTHROID 75 MCG PO SCH (11:35)
[2017-07-25] MEDS: Lyrica 50MG PO SCH ×2 (11:35→21:53)
[2017-07-25] MEDS: NovoLOG Insulin SQ SCH ×2 (12:02→16:04)
[2017-07-25] MEDS ORDERED: LACTULOSE 10 GM PO SCH (13:00)
[2017-07-25] MEDS: DUONEB 0.5-3 MG/3 ml Neb IH SCH ×2 (14:27→19:59)
[2017-07-25] MEDS ORDERED: NON-FORMULARY ITEM (Dextran 70/Hypromellose [Artificial Tears] 1 DROP) OP SCH (15:00)
[2017-07-25] MEDS: Artificial Tears 15 ML OP SCH ×2 (15:52→21:59)
[2017-07-25] MEDS ORDERED: ASCORBIC ACID PO SCH (22:00)
[2017-07-25] MEDS ORDERED: ASCORBATE SODIUM PO SCH (22:00)
[2017-07-25] MEDS ORDERED: [UNRECOGNIZED DRUG - OTHER] PO SCH (22:00)
[2017-07-25] MEDS ORDERED: NON-FORMULARY ITEM (Aripiprazole [Abilify] 5 MG) PO SCH (22:00)
[2017-07-25] MEDS ORDERED: Lexapro 10 MG PO SCH (22:00)
[2017-07-25] MEDS ORDERED: NON-FORMULARY ITEM (Escitalopram Oxalate [Lexapro] 20 MG) PO SCH (22:00)
[2017-07-25] MEDS ORDERED: Abilify 10 MG PO SCH (22:00)
[2017-07-25] MEDS ORDERED: Lantus Insulin SQ ONE (23:21)
[2017-07-26] MEDS: Sodium Chloride 0.9% 1000 ML 1,000 ML IV SCH (01:54)
[2017-07-26] MEDS: Advair Hfa 115/21 Common canister IH SCH (06:35)
[2017-07-26] MEDS: DUONEB 0.5-3 MG/3 ml Neb IH SCH (06:36)
[2017-07-26] MEDS: NovoLOG Insulin SQ PRN ×2 (07:34→12:12)
[2017-07-26] MEDS: Klor Con 10 MEQ PO SCH ×2 (08:50→12:13)
[2017-07-26] MEDS: NovoLOG Insulin SQ SCH ×2 (08:50→12:12)
[2017-07-26] MEDS: LACTULOSE 20 GM/30ML UD CUP PO SCH ×2 (09:06→12:13)
[2017-07-26] MEDS: Lyrica 50MG PO SCH (09:07)
[2017-07-26] MEDS: SYNTHROID 75 MCG PO SCH (09:07)
[2017-07-26] MEDS: Klonopin 0.5 MG PO SCH (09:07)
[2017-07-26] MEDS: Keppra 250 MG PO SCH (09:07)
[2017-07-26] MEDS: BUMEX 1 MG PO SCH (09:07)
[2017-07-26] MEDS: Provigil 100MG Tablet PO SCH (09:07)
[2017-07-26] MEDS: FOLATE 1 MG PO SCH (09:07)
[2017-07-26] MEDS: KEFLEX 500 MG PO SCH ×2 (09:07→12:14)
[2017-07-26] MEDS: Oxy-IR 5 MG PO SCH (09:08)
[2017-07-26] MEDS: VITAMIN B-1 100 MG PO SCH (09:09)
[2017-07-26] MEDS: Vitamin C 500 MG PO SCH (09:09)
[2017-07-26] MEDS: Protonix 40MG Tablet PO SCH (09:09)
[2017-07-26] MEDS: MIDAMOR PO SCH (09:10)
[2017-07-26] MEDS: Lantus Insulin SQ SCH (09:10)
[2017-07-26] MEDS: Artificial Tears 15 ML OP SCH (09:10)
[2017-07-26] MEDS ORDERED: MODAFINIL 200 MG PO SCH (10:00)
--- NOTE | 2017-07-26 11:00 | PCM.DS ---
Discharge Summary Date of Admission: 07/25/17 00:23 Date of Discharge: 07/26/17 Admitting Physician: TIN VENTURA Primary Care Provider: [place] Allergies Allergies metformin Allergy (Mild, Verified 07/15/17 18:38) Diarrhea phenytoin sodium [From Dilantin] Allergy (Mild, Verified 07/15/17 18:38) phenytoin sodium extended [From Dilantin] Allergy (Mild, Verified 07/15/17 18:38 ) carbamazepine [From Tegretol] Allergy (Unknown, Verified 07/15/17 18:38) Hospital Summary - Hospital Course Hospital Course: He presented to ED from [facility] where he was having sugars reading high on the accucheck and not responsive to insulin subcutaneous. On the trip by EMT to ED he was given 125 mg of solumedrol due to some shortness of breath and on arrival blood glucose was over 500. He was not acidotic and not dehydrated. He was started on normal saline and given subcutaneous insulin. He was given duonebs for his copd exacerbation with bronchitis. He was on keflex from the prior week when he was diagnosed with a UTI. On review of his lab work it appears he has chronically been running high on blood sugar and A1c is uncontrolled. His long acting levemir was increased as was his ac and sliding scale insulin and he began having some improvement down to the 200's on morning of discharge. He had his chronic asterixis from his chronic hepatic encephalopathy that is stable and he was alert and very oriented. For his bronchitis he had improvement with the nasal cannule oxygen and the duoneb treatments scheduled. - Vitals & Intake/Output Vital Signs: Vital Signs Temperature 98 F 07/26/17 07:35 Pulse Rate 80 07/26/17 07:35 Respiratory Rate 22 07/26/17 07:35 Blood Pressure 122/78 07/26/17 07:35 O2 Sat by Pulse Oximetry 96 07/26/17 07:35 Oxygen-Last Documented O2 Percentage 3 Liters = 32% Intake & Output: Intake & Output 07/23/17 07/24/17 07/25/17 07/26/17 11:59 11:59 11:59 11:59 Intake Total 1909 5877 Output Total 400 5150 Balance 1509 727 Weight 137.212 kg 138 kg - Lab Result Diagrams: 07/25/17 05:55 07/25/17 05:55 Lab Results-Last 24 Hrs: Accuchecks Date 07/26/17 Date 07/25/17 Date 07/25/17 Date 07/25/17 Time 07:36 Time 22:22 Time 16:05 Time 11:30 Accucheck Value: 239 Accucheck Value: 351 Accucheck Value: 365 Accucheck Value: 454 Lab Results-Last 24 Hours 07/25/17 Range/Units 10:25 Glucose 531 H* (70-110) MG/DL Micro Results-Entire Visit: Accuchecks Date 07/26/17 Date 07/25/17 Date 07/25/17 Date 07/25/17 Time 07:36 Time 22:22 Time 16:05 Time 11:30 Accucheck Value: 239 Accucheck Value: 351 Accucheck Value: 365 Accucheck Value: 454 - Procedures and Test Procedures and Tests throughout Hospitalization: Therapy Orders & Screens 07/25/17 02:47 BiPap/CPAP Assessment ROUTINE Comment: [id number] W/ 2LPM O2 INLINE Diagnosis: hyperglycemia, chronic COPD 07/25/17 02:52 neb [Respiratory Nebulizer] PRN Comment: Diagnosis: hyperglycemia, chronic COPD 07/25/17 03:07 Respiratory MDI BID Comment: ADV 115/21 BID Diagnosis: hyperglycemia, chronic COPD Discharge Exam General Appearance: obese Neurologic Exam: oriented x 3, cooperative Skin Exam: warm, dry Eye Exam: No scleral icterus, No pale conjunctivae Ears, Nose, Throat Exam: moist mucous membranes Neck Exam: non-tender, supple Respiratory Exam: rhonchi, wheezing, No crackles/rales Cardiovascular Exam: regular rate/rhythm Gastrointestinal/Abdomen Exam: soft, normal bowel sounds, distention, other ( limited by obesity), No tenderness Extremity Exam: pedal edema (3+ collins LE pitting) Final Diagnosis/Problem List - Final Discharge Diagnosis/Problem (1) Uncontrolled diabetes mellitus with hyperglycemia Status: Acute (2) Hepatic encephalopathy Status: Chronic (3) Chronic bronchitis with COPD (chronic obstructive pulmonary disease) Status: Chronic (4) UTI (urinary tract infection) Status: Acute (5) Cerebral arteriosclerosis with history of previous cerebrovascular accident Status: Chronic (6) Asterixis Status: Chronic - Discharge Discharge Date: 07/26/17 Disposition: Skilled Care @ [facility] Condition: Fair Prescriptions: New Fluticasone/Salmeterol 115/21 [Advair Hfa 115/21 Common canister*] 2 puff IH BIDRT aer.w.adap Albuterol/Ipratropium 3ml Neb* [DUONEB 0.5-3 MG/3 ml Neb] 3 ml IH TIDRT ampul.neb Albuterol/Ipratropium 3ml Neb* [DUONEB 0.5-3 MG/3 ml Neb] 3 ml IH Q4HPRN PRN ampul.neb PRN Reason: Shortness Of Breath/Wheezing Hydrocodone/APAP 10/325 mg [Martin 10/325 MG Tablet] 1 tab PO Q4H PRN PRN tablet MDD 6 tabs PRN Reason: Pain Insulin Aspart [NovoLOG Insulin] 20 unit SQ AC unit Insulin Detemir [Levemir] 30 unit SQ BID #10 ml Continue Lactulose 10 gm PO QID Oxycodone HCl 5 mg Ir [Oxy-IR 5 MG] 10 mg PO TID Thiamine HCl 100 mg [Vitamin B-1 100 mg] 100 mg PO DAILY Modafinil [Provigil] 200 mg PO DAILY Levothyroxine Sodium 75 Mcg [Synthroid 75 Mcg] 75 mcg PO DAILY PANTOPRAZOLE 40 mg Tablet [Protonix 40MG Tablet] 40 mg PO DAILY Multivitamin [Multivitamins] 1 each PO DAILY Escitalopram Oxalate [Lexapro] 20 mg PO HS Folic Acid 1 mg [Folate 1 mg] 1 mg PO DAILY Aripiprazole [Abilify] 5 mg PO HS Potassium Chloride 20 Meq [Klor-Con 20 MEQ] 40 meq PO Q4HWA Furosemide 40 mg [Lasix 40 MG] 40 mg PO DAILY #10 tablet Acetaminophen [Tylenol] 650 mg PO Q4HPRN PRN PRN Reason: Pain Clonazepam [Klonopin] 0.25 mg PO TID Magnesium Hydroxide 30 ml [Milk of Magnesia 30 ml] 30 ml PO DAILY PRN PRN PRN Reason: Constipation Aspirin/Acetaminophen/Caffeine [Excedrin Migraine Caplet] 1 tab PO BIDPRN PRN PRN Reason: Headache Neomycin Sulfate 1 tab PO TID PRN Dextran 70/Hypromellose [Artificial Tears] 1 drop OP TID Ascorbic Acid/Ascorbate Sodium [Vitamin C 250 mg Tablet Chew] 750 mg PO BID Pregabalin 50 mg [Lyrica 50MG] 50 mg PO BID Levetiracetam 250 MG [Keppra 250 MG] 250 mg PO BID Clonazepam 0.5 mg [Klonopin 0.5 MG] 0.25 mg PO TID Calcium Carbonate/Vitamin D3 [Calcium 600 + Vit D Tablet] 1 tab PO BID Bumetanide [Bumex] 4 mg PO BID Amiloride HCl 5 mg PO BID Cephalexin Mh 500 mg [Keflex 500 mg] 500 mg PO DAILY Insulin Aspart [NovoLOG Insulin] 1 unit SQ AC Magnesium Hydroxide 30 ml [Milk of Magnesia 30 ml] 30 ml PO DAILY PRN PRN PRN Reason: Constipation Menthol [Rew] 1 kedar PO UD Sodium Phosphate,[place]-Dibasic [Fleet Enema] 1 enema R DAILY PRN PRN PRN Reason: Constipation Cephalexin Monohydrate [Keflex] 500 mg PO QID Discontinued Hydrocodone Bit/Acetaminophen [Hydrocodon-Acetaminophn 10-325] 1 tab PO DAILY PRN PRN PRN Reason: Pain And/Or Fever Additional Instructions: [facility]: See attached medication list for orders. Outpatient referral for podiatry nail care for diabetic neuropathy with thick brittle painful toe nails. Oxygen at 2L per nasal cannula continuously. Check oxygen saturation every shift. May titrate Oxygen levels to keep saturation >91% (Patient does use 2L of Oxygen with CPAP at night as well). Continue all other previous orders. Follow up with: HANK MERA [Primary Care Provider] -
[2017-07-26 13:52] VITALS: BP 172/73; PULSE 84; O2SAT 97
== END 2017-07-26 15:00 | disposition home or self-care (01) ==
LOC: ED 20:13 → MED SURG 07-25 00:23
PROVIDERS: ADMIT Family Medicine; ATTEND Family Medicine
DX: E11.65 Type 2 diabetes mellitus with hyperglycemia (principal); K72.90 Hepatic failure, unspecified without coma; N39.0 Urinary tract infection, site not specified; I67.2 Cerebral atherosclerosis; Z86.73 Personal history of transient ischemic attack (TIA), and cerebral infarction without residual deficits; R27.8 Other lack of coordination; J44.9 Chronic obstructive pulmonary disease, unspecified; Z72.0 Tobacco use; Z79.899 Other long term (current) drug therapy
CPT/HCPCS: 82962 ×3; 93268; 96374; 99285; 96360; 96361; 93005; 81000; 36415 ×2; 82947; 83036; 83880; 87186; 85025 ×2; 87077; 80053 ×2; 87086; 71045; 94660 ×2; 82805; 94640 ×7; 94760 ×2; 94150; P9612; G0378; A9270-GY

== ENCOUNTER 2017-07-31 14:17 | Emergency (ER) | payer MEDICARE ==
--- NOTE | 2017-07-31 15:33 | ERPHSYRPT ---
- History of Present Illness Time Seen by Provider: 07/31/17 15:27 Historian: patient, EMS, snf records Exam Limitations: no limitations Patient Subjective Stated Complaint: pt here for swelling to abd , pt states he has been haivng trouble with swelling for over 3 weeks now,. has pain to abd Triage Nursing Assessment: pt alert, resp easy, skin w/d/p. o2 at 2 l nc, abd large round firm and distended, edema to lower lefts, left leg +3 right leg +2, he states he has gone from 265 to 315 in waeg , pt has supra pubic cath. fc was changed thursday Physician History: The patient is an obese 56-year-old male transported by ambulance from the snf where he has been complaining for 3 weeks of swelling in his upper abdomen with increasing pain. He also states he has increasing edema in both legs for which the left leg is always been more swollen than the right. He was recently in the hospital at [facility] and was discharged on 218. His past medical history is significant for COPD, dementia, diabetes, seizure disorder, and hepatic encephalopathy. Timing/Duration: week(s) (3) Activities at Onset: none Quality: aching Abdominal Pain Onset Location: RUQ, LUQ Pain Radiation: no radiation Severity of Pain-Max: mild Severity of Pain-Current: mild Modifying Factors: Improves With: nothing Associated Symptoms: denies symptoms Allergies/Adverse Reactions: metformin Allergy (Mild, Verified 07/15/17 18:38) Diarrhea phenytoin sodium [From Dilantin] Allergy (Mild, Verified 07/15/17 18:38) phenytoin sodium extended [From Dilantin] Allergy (Mild, Verified 07/15/17 18:38 ) carbamazepine [From Tegretol] Allergy (Unknown, Verified 07/15/17 18:38) Home Medications: Aripiprazole [Abilify] 5 mg PO HS 06/19/17 [History] Escitalopram Oxalate [Lexapro] 20 mg PO HS 06/19/17 [History] Folic Acid 1 mg [Folate 1 mg] 1 mg PO DAILY 06/19/17 [History] Lactulose 10 gm PO QID 06/19/17 [History] Levothyroxine Sodium 75 Mcg [Synthroid 75 Mcg] 75 mcg PO DAILY 06/19/17 [ History] Modafinil [Provigil] 200 mg PO DAILY 06/19/17 [History] Multivitamin [Multivitamins] 1 each PO DAILY 06/19/17 [History] Oxycodone HCl 5 mg Ir [Oxy-IR 5 MG] 10 mg PO TID 06/19/17 [History] PANTOPRAZOLE 40 mg Tablet [Protonix 40MG Tablet] 40 mg PO DAILY 06/19/17 [ History] Potassium Chloride 20 Meq [Klor-Con 20 MEQ] 40 meq PO Q4HWA 06/19/17 [History] Thiamine HCl 100 mg [Vitamin B-1 100 mg] 100 mg PO DAILY 06/19/17 [History ] Acetaminophen [Tylenol] 650 mg PO Q4HPRN PRN 07/24/17 [History] Amiloride HCl 5 mg PO BID 07/24/17 [History] Ascorbic Acid/Ascorbate Sodium [Vitamin C 250 mg Tablet Chew] 750 mg PO BID [History] Aspirin/Acetaminophen/Caffeine [Excedrin Migraine Caplet] 1 tab PO BIDPRN PRN [History] Bumetanide [Bumex] 4 mg PO BID 07/24/17 [History] Calcium Carbonate/Vitamin D3 [Calcium 600 + Vit D Tablet] 1 tab PO BID 07/24/17 [History] Cephalexin Mh 500 mg [Keflex 500 mg] 500 mg PO DAILY 07/24/17 [History] Clonazepam 0.5 mg [Klonopin 0.5 MG] 0.25 mg PO TID 07/24/17 [History] Clonazepam [Klonopin] 0.25 mg PO TID 07/24/17 [History] Dextran 70/Hypromellose [Artificial Tears] 1 drop OP TID 07/24/17 [History] Levetiracetam 250 MG [Keppra 250 MG] 250 mg PO BID 07/24/17 [History] Magnesium Hydroxide 30 ml [Milk of Magnesia 30 ml] 30 ml PO DAILY PRN PRN 07/24/17 [History] Neomycin Sulfate 1 tab PO TID PRN 07/24/17 [History] Pregabalin 50 mg [Lyrica 50MG] 50 mg PO BID 07/24/17 [History] Cephalexin Monohydrate [Keflex] 500 mg PO QID 07/25/17 [History] Insulin Aspart [NovoLOG Insulin] 1 unit SQ AC 07/25/17 [History] Magnesium Hydroxide 30 ml [Milk of Magnesia 30 ml] 30 ml PO DAILY PRN PRN 07/25/17 [History] Menthol [[place]] 1 kedar PO UD 07/25/17 [History] Sodium Phosphate,[place]-Dibasic [Fleet Enema] 1 enema R DAILY PRN PRN 07/25/17 [ History] Hx Tetanus, Diphtheria Vaccination/Date Given: Yes Hx Influenza Vaccination/Date Given: Yes Hx Pneumococcal Vaccination/Date Given: Yes Immunizations Up to Date: Yes - Review of Systems Constitutional: No Fever, No Chills Eyes: No Symptoms Ears, Nose, & Throat: No Symptoms Respiratory: No Cough, No Dyspnea Cardiac: No Chest Pain, No Edema, No Syncope Abdominal/Gastrointestinal: Abdominal Pain Genitourinary Symptoms: No Dysuria Musculoskeletal: No Back Pain, No Neck Pain Skin: No Rash Neurological: No Dizziness, No Focal Weakness, No Sensory Changes Psychological: No Symptoms Endocrine: No Symptoms Hematologic/Lymphatic: No Symptoms Immunological/Allergic: No Symptoms All Other Systems: Reviewed and Negative - Past Medical History Pertinent Past Medical History: Yes Neurological History: Alzheimer's Disease, Dementia, Seizures, Stroke, TIA ENT History: No Pertinent History Cardiac History: High Cholesterol, Hypertension Respiratory History: Bronchitis, COPD, Sleep Apnea Endocrine Medical History: Diabetes Type II, Hypothyroidism Musculoskeletal History: No Pertinent History GI Medical History: Cirrhosis History: Other Psycho-Social History: Bipolar, Depression Male Reproductive Disorders: No Pertinent History Other Medical History: URINARY INCONTINENCE/retention - Past Surgical History Past Surgical History: Yes Neuro Surgical History: No Pertinent History Cardiac: No Pertinent History Respiratory: No Pertinent History Gastrointestinal: No Pertinent History Genitourinary: No Pertinent History Musculoskeletal: Orthopedic Surgery Male Surgical History: Other Other Surgical History: LATE CIRCUMCISION - tip of FINGER AMPUTATION. SUPRAPUBIC CATHETER PLACED 07/11/14 - Social History Smoking Status: Current some day smoker How long have you smoked: YRS Exposure to second hand smoke: No Alcohol Use: None Drug Use: none Patient Lives Alone: No Significant Family History: heart disease, diabetes - Nursing Vital Signs Nursing Vital Signs: Initial Vital Signs Temperature 98.7 F 07/31/17 14:18 Pulse Rate 85 07/31/17 14:18 Respiratory Rate 22 07/31/17 14:18 Blood Pressure 118/58 07/31/17 14:18 O2 Sat by Pulse Oximetry 95 07/31/17 14:18 Pain Scale Pain Intensity 0 - Physical Exam General Appearance: no apparent distress, alert Eye Exam: PERRL/EOMI, eyes nml inspection Ears, Nose, Throat Exam: normal ENT inspection, pharynx normal, moist mucous membranes Neck Exam: normal inspection, non-tender, supple, full range of motion Respiratory Exam: normal breath sounds, lungs clear, No respiratory distress Cardiovascular Exam: regular rate/rhythm, normal heart sounds, edema (4+ left leg and 3+ right leg) Gastrointestinal/Abdomen Exam: soft, tenderness (upper abd), No mass Rectal Exam: not done Back Exam: normal inspection, normal range of motion, No CVA tenderness, No vertebral tenderness Extremity Exam: normal inspection, normal range of motion, pelvis stable Neurologic Exam: alert, oriented x 3, cooperative, normal mood/affect, nml cerebellar function, sensation nml, No motor deficits Skin Exam: normal color, warm, dry SpO2 Interpretation: normal SpO2: 95 Oxygen Delivery: Nasal Cannula - Radiology Exams Chest X-ray Interpretation: Interpreted by me, Negative - CT Exams Abdomen/Pelvis CT Interpretation: Negative, Tele-radiologist Report (no new acute findings comp to abd/pelvis CT per Dr Herbert.) Ordered Tests: Active Orders 24 hr Category Date Time Status ABDOMEN AND PELVIS W/0 CONTRAS [CT] Stat Exams 07/31/17 15:33 Taken CHEST 2 VIEWS (PA AND LAT) Stat Exams 07/31/17 15:34 Taken CBC W DIFF Stat Lab 07/31/17 16:33 Completed CMP Stat Lab 07/31/17 16:33 Completed CULTURE,URINE Stat Lab 07/31/17 17:03 Received LIPASE Stat Lab 07/31/17 16:33 Completed Lactic Acid Stat Lab 07/31/17 15:33 Completed NT PRO BNP Stat Lab 07/31/17 16:33 Completed TROPONIN Q3H Lab 07/31/17 16:33 Completed TROPONIN Q3H Lab 07/31/17 18:45 Ordered TROPONIN Q3H Lab 07/31/17 21:45 Ordered TROPONIN Q3H Lab 08/01/17 00:45 Ordered TROPONIN Q3H Lab 08/01/17 03:45 Ordered UA W/ MICROSCOPIC Stat Lab 07/31/17 17:03 Completed Medication Summary Discontinued Medications Generic Name Dose Route Start Last Admin Trade Name Sergioq PRN Reason Stop Dose Admin Heparin Sodium (Beef Lung) Confirm 07/31/17 15:45 Heparin Lock Flush 100 Units/Ml 5ml Syringe Administered 07/31/17 15:46 Dose 500 units .ROUTE .Move [employer] ONE Lab/Rad Data: Laboratory Result Diagrams 07/31/17 16:33 07/31/17 16:33 Laboratory Results 07/31/17 07/31/17 07/31/17 Range/Units 17:03 16:33 16:33 WBC (4.0-10.5) K/mm3 RBC (4.1-5.6) M/mm3 Hgb (12.5-18.0) gm/dl Hct (42-50) % MCV (78-100) fl MCH (26-32) pg MCHC (32-36) g/dl RDW (11.5-14.0) % Plt Count (150-450) K/mm3 MPV (6-9.5) fl Gran % (36.0-66.0) % Lymphocytes % (24.0-44.0) % Monocytes % (0.0-12.0) % Eosinophils % (0.00-5.0) % Basophils % (0.0-0.4) % Basophils # (0-0.4) Sodium (136-145) mEq/L Potassium (3.5-5.1) mEq/L Chloride (98-107) mEq/L Carbon Dioxide (21-32) mEq/L Anion Gap (5-15) MEQ/L BUN (9-20) mg/dL Creatinine (0.55-1.30) mg/dl Estimated GFR ML/MIN Glucose (70-110) MG/DL Lactic Acid (0.4-2.0) Calcium (8.5-10.1) mg/dL Total Bilirubin (0.2-1.0) mg/dL AST (15-37) U/L Alkaline Phosphatase (46-116) U/L Troponin I < 0.017 (0.000-0.056) ng/ml NT-Pro-B Natriuret Pep 55 (0-125) pg/ml Serum Total Protein (6.4-8.2) gm/dL Albumin (3.4-5.0) g/dL Lipase (73-393) U/L Ur Collection Type CCMS Urine Color YELLOW (YELLOW) Urine Appearance CLEAR (CLEAR) Urine pH 5.0 (5-6) Ur Specific [place] 1.015 (1.005-1.025) Urine Protein TRACE (Negative) Urine Ketones NEGATIVE (NEGATIVE) Urine Blood 250 (0-5) Collin/ul Urine Nitrite NEGATIVE (NEGATIVE) Urine Bilirubin NEGATIVE (NEGATIVE) Urine Urobilinogen NORMAL (0-1) mg/dL Ur Leukocyte Esterase 1+ (NEGATIVE) Urine Microscopic RBC 25-50 (0-2) /HPF Urine Microscopic WBC 5-10 (0-5) /HPF Urine Bacteria RARE (NEGATIVE) /HPF Urine Culture Reflexed YES (NO) Urine Glucose NEGATIVE (NEGATIVE) mg/dL Slides for Path Review Specimen Received 07-31-17 1710 07/31/17 07/31/17 07/31/17 Range/Units 16:33 16:33 15:33 WBC 4.4 (4.0-10.5) K/mm3 RBC 4.05 L (4.1-5.6) M/mm3 Hgb 13.0 (12.5-18.0) gm/dl Hct 38.6 L (42-50) % MCV 95.3 (78-100) fl MCH 32.0 (26-32) pg MCHC 33.7 (32-36) g/dl RDW 14.4 H (11.5-14.0) % Plt Count 67 L (150-450) K/mm3 MPV 10.8 H (6-9.5) fl Gran % 57.0 (36.0-66.0) % Lymphocytes % 22.1 L (24.0-44.0) % Monocytes % 16.8 H (0.0-12.0) % Eosinophils % 3.9 (0.00-5.0) % Basophils % 0.2 (0.0-0.4) % Basophils # 0.01 (0-0.4) Sodium 143 (136-145) mEq/L Potassium 4.1 (3.5-5.1) mEq/L Chloride 107 (98-107) mEq/L Carbon Dioxide 29.0 (21-32) mEq/L Anion Gap 11.2 (5-15) MEQ/L BUN 12 (9-20) mg/dL Creatinine 1.11 (0.55-1.30) mg/dl Estimated GFR > 60 ML/MIN Glucose 136 H (70-110) MG/DL Lactic Acid 1.3 (0.4-2.0) Calcium 8.3 L (8.5-10.1) mg/dL Total Bilirubin 1.20 H (0.2-1.0) mg/dL AST 62 H (15-37) U/L Alkaline Phosphatase 87 (46-116) U/L Troponin I (0.000-0.056) ng/ml NT-Pro-B Natriuret Pep (0-125) pg/ml Serum Total Protein 6.5 (6.4-8.2) gm/dL Albumin 2.5 L (3.4-5.0) g/dL Lipase 156 (73-393) U/L Ur Collection Type Urine Color (YELLOW) Urine Appearance (CLEAR) Urine pH (5-6) Ur Specific [place] (1.005-1.025) Urine Protein (Negative) Urine Ketones (NEGATIVE) Urine Blood (0-5) [place]lin/ul Urine Nitrite (NEGATIVE) Urine Bilirubin (NEGATIVE) Urine Urobilinogen (0-1) mg/dL Ur Leukocyte Esterase (NEGATIVE) Urine Microscopic RBC (0-2) /HPF Urine Microscopic WBC (0-5) /HPF Urine Bacteria (NEGATIVE) /HPF Urine Culture Reflexed (NO) Urine Glucose (NEGATIVE) mg/dL Slides for Path Review Specimen Received - Progress Progress: unchanged - Departure Time of Disposition: 18:01 Departure Disposition: Home Clinical Impression: UTI (urinary tract infection) Condition: Stable Critical Care Time: No Referrals: HANK MERA [Primary Care Provider] - Additional Instructions: You have a mild UTI. You were given Rocephin 1 g by IV in the ER. Take Keflex 500 mg 4 times a day for 7 days. Follow-up on Thursday.
[2017-07-31 16:34] LABS: BASOPHIL % 0.2 % (0.0-0.4); Basophil (Absolute #) 0.01 (0-0.4); Eosinophil % 3.9 % (0.00-5.0); Eosinophil (Absolute #) 0.17 (0-0.5); Granulocyte Absolute (ANC) 2.48 (1.4-6.9); Hematocrit 38.6 % (42-50); Lymphocyte (Absolute #) 0.96 (1.0-4.6); Lymphocytes % 22.1 % (24.0-44.0); Mean Cell Volume 95.3 fl (78-100); Mean Corpuscular Hgb Concent. 33.7 g/dl (32-36); Mean Platelet Volume 10.8 fl (6-9.5); Monocyte (Absolute #) 0.73 (0.0-1.3); Monocytes % 16.8 % (0.0-12.0); Platelet Count 67 K/mm3 (150-450); Red Blood Count 4.05 M/mm3 (4.1-5.6); Red Cell Distribution Width 14.4 % (11.5-14.0); White Blood Count 4.4 K/mm3 (4.0-10.5)
[2017-07-31 17:11] LABS: Appearance CLEAR (CLEAR); Bilirubin NEGATIVE (NEGATIVE); Blood 250 Ery/ul (0-5); Glucose NEGATIVE (NEGATIVE); Ketones NEGATIVE (NEGATIVE); Leukocyte Esterase 1+ (NEGATIVE); Nitrite NEGATIVE (NEGATIVE); Protein,Urine Dip TRACE (Negative); Specific Gravity 1.015 (1.005-1.025); Urobilinogen NORMAL mg/dL (0-1)
[2017-07-31 17:14] LABS: Bacteria RARE /HPF (NEGATIVE)
[2017-07-31 17:18] VITALS: BP 135/69; PULSE 77
[2017-07-31 17:50] LABS: ALBUMIN 2.5 g/dL (3.4-5.0); ALKALINE PHOSPHATASE 87 U/L (46-116); ANION GAP 11.2 MEQ/L (5-15); BLOOD UREA NITROGEN 12 mg/dL (9-20); CHLORIDE 107 mEq/L (98-107); Calcium 8.3 mg/dL (8.5-10.1); Creatinine 1 1.11 mg/dl (0.55-1.30); EST GLOMERULAR FILTRATION RATE > 60 ML/MIN; Glucose 136 MG/DL (70-110); LIPASE 156 U/L (73-393); Potassium 4.1 mEq/L (3.5-5.1); SGOT/AST 62 U/L (15-37); SODIUM 143 mEq/L (136-145); Total Protein 6.5 gm/dL (6.4-8.2)
[2017-07-31] MEDS ORDERED: ROCEPHIN 1 Gm-D5w 50 ml Bag** 1 G/50 ML IVPB IV STA (18:01)
[2017-07-31 18:04] VITALS: O2SAT 95
[2017-07-31] MEDS ORDERED: ROCEPHIN 1 Gm-D5w 50 ml Bag** 1 G/50 ML IVPB IV ONE (18:05)
[2017-07-31 18:12] LABS: SGPT/ALT 51 U/L (12-78)
--- NOTE | 2017-07-31 22:05 | XRAY ---
Indication: Lower abdominal pain. Multiple contiguous axial images obtained through the abdomen and pelvis without contrast as ordered Comparison: July 15, 2017. Lung bases remain clear. Heart is not enlarged. Noncontrasted stomach and bowel loops appears nonobstructed. Gallbladder again partially contracted with gallstones near the neck of the gallbladder. Liver again appears cirrhotic without ascites. Spleen remains enlarged again 20 cm in greatest dimension. Stable spleno renal varices. Stable right upper renal cyst and suprapubic catheter. No free fluid/air. Remaining pancreas, adrenal glands, kidneys, ureters, and aorta appear unremarkable for noncontrast exam. Osseous structures intact again with mild degenerative changes throughout spine and prominent T12 Schmorl node. Stable small fatty umbilical and small fatty inguinal hernias. Impression: 1. Stable cirrhosis with secondary findings including splenomegaly and splenorenal varices. No ascites. 2. Stable gallstones, right renal cyst, and fatty umbilical/right inguinal hernias. 3. No new or acute intra-abdominal/pelvic abnormalities on this noncontrast exam. CT DI 28.13
--- NOTE | 2017-07-31 22:09 | XRAY ---
Indication: Pain. Comparison: July 24, 2017. PA/lateral chest demonstrates new right arm PICC line in good position. No focal infiltrate, consolidation, or large effusion. Heart and mediastinal structures within normal limits. Bony thorax intact. Impression: Nonacute chest with new right arm PICC line.
== END 2017-07-31 19:11 | disposition home or self-care (01) ==
LOC: ED 14:17
DX: N39.0 Urinary tract infection, site not specified (principal); Z79.899 Other long term (current) drug therapy; E11.9 Type 2 diabetes mellitus without complications; Z79.4 Long term (current) use of insulin; R19.00 Intra-abdominal and pelvic swelling, mass and lump, unspecified site; R60.9 Edema, unspecified
CPT/HCPCS: 36415; 71046; 74176; 80053; 81000; 83605; 83690; 83880; 84484; 85025; 87086; 96365; 99283; 99285; J0696; J1642

== ENCOUNTER 2017-08-27 18:56 | Observation (INO) | payer MEDICARE ==
[2017-08-27 19:29] LABS: BASOPHIL % 0.5 % (0.0-0.4); Basophil (Absolute #) 0.03 (0-0.4); Eosinophil % 3.8 % (0.00-5.0); Eosinophil (Absolute #) 0.24 (0-0.5); Granulocyte Absolute (ANC) 4.29 (1.4-6.9); Granulocytes % 67.1 % (36.0-66.0); Hematocrit 43.1 % (42-50); Hemoglobin 15.3 gm/dl (12.5-18.0); Lymphocyte (Absolute #) 1.05 (1.0-4.6); Lymphocytes % 16.4 % (24.0-44.0); Mean Cell Volume 88.7 fl (78-100); Mean Corpuscular Hemoglobin 31.5 pg (26-32); Mean Corpuscular Hgb Concent. 35.5 g/dl (32-36); Mean Platelet Volume 11.8 fl (6-9.5); Monocyte (Absolute #) 0.78 (0.0-1.3); Monocytes % 12.2 % (0.0-12.0); Platelet Count 97 K/mm3 (150-450); Red Blood Count 4.86 M/mm3 (4.1-5.6); Red Cell Distribution Width 14.2 % (11.5-14.0); White Blood Count 6.4 K/mm3 (4.0-10.5)
[2017-08-27] MEDS ORDERED: Sodium Chloride 0.9% 1000 ML 1,000 ML IV STA (19:41)
[2017-08-27] MEDS ORDERED: DUONEB 0.5-3 MG/3 ml Neb IH ONE ×2 (19:47→19:57)
[2017-08-27] MEDS ORDERED: NovoLIN R IV ONE (19:47)
--- NOTE | 2017-08-27 19:47 | ERPHSYRPT ---
- History of Present Illness Time Seen by Provider: 08/27/17 19:39 Source: patient Exam Limitations: no limitations Patient Subjective Stated Complaint: pt here for altered mental status, high blood sugar, brought in [place] Triage Nursing Assessment: pt alert, sleeping at times,resp easy, skin w/d/p, abd large and tight which is normal for him. Physician History: 56-year-old white male brought from detention with complaint that mental status change and increased blood sugars at the detention arrives with a blood sugar of 547 patient is alert oriented 3 he is in no acute distress he states he had some abdominal pain earlier Past medical history includes Alzheimer's dementia, seizures, TIA, diabetes, hypothyroidism, bronchitis, COPD, sleep apnea, hyperlipidemia, high blood pressure, bipolar disorder, urinary incontinence Past surgical history includes a late circumcision and tip of finger amputation also patient with a suprapubic catheter Timing/Duration: today Severity: moderate Modifying Factors: Improves With: nothing Associated Symptoms: abdominal pain, other (thought to be confused at detention), No nausea, No vomiting, No shortness of breath, No heartburn, No diaphoresis, No cough, No chills, No chest pain, No fever, No headaches, No loss of appetite, No malaise, No rash, No syncope, No seizure, No weakness Allergies/Adverse Reactions: metformin Allergy (Mild, Verified 07/15/17 18:38) Diarrhea phenytoin sodium [From Dilantin] Allergy (Mild, Verified 07/15/17 18:38) phenytoin sodium extended [From Dilantin] Allergy (Mild, Verified 07/15/17 18:38 ) carbamazepine [From Tegretol] Allergy (Unknown, Verified 07/15/17 18:38) Home Medications: Aripiprazole [Abilify] 5 mg PO HS 06/19/17 [History] Escitalopram Oxalate [Lexapro] 20 mg PO HS 06/19/17 [History] Folic Acid 1 mg [Folate 1 mg] 1 mg PO DAILY 06/19/17 [History] Lactulose 10 gm PO QID 06/19/17 [History] Levothyroxine Sodium 75 Mcg [Synthroid 75 Mcg] 75 mcg PO DAILY 06/19/17 [ History] Modafinil [Provigil] 200 mg PO DAILY 06/19/17 [History] Multivitamin [Multivitamins] 1 each PO DAILY 06/19/17 [History] Oxycodone HCl 5 mg Ir [Oxy-IR 5 MG] 10 mg PO TID 06/19/17 [History] PANTOPRAZOLE 40 mg Tablet [Protonix 40MG Tablet] 40 mg PO DAILY 06/19/17 [ History] Potassium Chloride 20 Meq [Klor-Con 20 MEQ] 40 meq PO Q4HWA 06/19/17 [History] Thiamine HCl 100 mg [Vitamin B-1 100 mg] 100 mg PO DAILY 06/19/17 [History ] Acetaminophen [Tylenol] 650 mg PO Q4HPRN PRN 07/24/17 [History] Amiloride HCl 5 mg PO BID 07/24/17 [History] Ascorbic Acid/Ascorbate Sodium [Vitamin C 250 mg Tablet Chew] 750 mg PO BID [History] Aspirin/Acetaminophen/Caffeine [Excedrin Migraine Caplet] 1 tab PO BIDPRN PRN [History] Bumetanide [Bumex] 4 mg PO BID 07/24/17 [History] Calcium Carbonate/Vitamin D3 [Calcium 600 + Vit D Tablet] 1 tab PO BID 07/24/17 [History] Cephalexin Mh 500 mg [Keflex 500 mg] 500 mg PO DAILY 07/24/17 [History] Clonazepam 0.5 mg [Klonopin 0.5 MG] 0.25 mg PO TID 07/24/17 [History] Clonazepam [Klonopin] 0.25 mg PO TID 07/24/17 [History] Dextran 70/Hypromellose [Artificial Tears] 1 drop OP TID 07/24/17 [History] Levetiracetam 250 MG [Keppra 250 MG] 250 mg PO BID 07/24/17 [History] Magnesium Hydroxide 30 ml [Milk of Magnesia 30 ml] 30 ml PO DAILY PRN PRN 07/24/17 [History] Neomycin Sulfate 1 tab PO TID PRN 07/24/17 [History] Pregabalin 50 mg [Lyrica 50MG] 50 mg PO BID 07/24/17 [History] Cephalexin Monohydrate [Keflex] 500 mg PO QID 07/25/17 [History] Insulin Aspart [NovoLOG Insulin] 1 unit SQ AC 07/25/17 [History] Magnesium Hydroxide 30 ml [Milk of Magnesia 30 ml] 30 ml PO DAILY PRN PRN 07/25/17 [History] Menthol [[place]] 1 kedar PO UD 07/25/17 [History] Sodium Phosphate,[place]-Dibasic [Fleet Enema] 1 enema R DAILY PRN PRN 07/25/17 [ History] Hx Tetanus, Diphtheria Vaccination/Date Given: Yes Hx Influenza Vaccination/Date Given: Yes Hx Pneumococcal Vaccination/Date Given: Yes Immunizations Up to Date: Yes - Review of Systems Constitutional: No Fever, No Chills Eyes: No Symptoms Ears, Nose, & Throat: No Symptoms Respiratory: No Cough, No Dyspnea Cardiac: No Chest Pain, No Edema, No Syncope Abdominal/Gastrointestinal: Abdominal Pain, No Nausea, No Vomiting, No Diarrhea Genitourinary Symptoms: No Dysuria Musculoskeletal: No Back Pain, No Neck Pain Skin: No Rash Neurological: No Dizziness, No Focal Weakness, No Sensory Changes Psychological: No Symptoms Endocrine: No Symptoms All Other Systems: Reviewed and Negative - Past Medical History Pertinent Past Medical History: Yes Neurological History: Alzheimer's Disease, Dementia, Seizures, Stroke, TIA ENT History: No Pertinent History Cardiac History: High Cholesterol, Hypertension Respiratory History: Bronchitis, COPD, Sleep Apnea Endocrine Medical History: Diabetes Type II, Hypothyroidism Musculoskeletal History: No Pertinent History GI Medical History: Cirrhosis History: Other Psycho-Social History: Bipolar, Depression Male Reproductive Disorders: No Pertinent History Other Medical History: URINARY INCONTINENCE/retention - Past Surgical History Past Surgical History: Yes Neuro Surgical History: No Pertinent History Cardiac: No Pertinent History Respiratory: No Pertinent History Gastrointestinal: No Pertinent History Genitourinary: No Pertinent History Musculoskeletal: Orthopedic Surgery Male Surgical History: Other Other Surgical History: LATE CIRCUMCISION - tip of FINGER AMPUTATION. SUPRAPUBIC CATHETER PLACED 07/11/14 - Social History Smoking Status: Never smoker How long have you smoked: YRS Exposure to second hand smoke: No Alcohol Use: None Drug Use: none Patient Lives Alone: No Significant Family History: heart disease, diabetes - Nursing Vital Signs Nursing Vital Signs: Initial Vital Signs Temperature 97.2 F 08/27/17 19:00 Pulse Rate 81 08/27/17 19:00 Respiratory Rate 14 08/27/17 19:00 Blood Pressure 116/68 08/27/17 19:00 O2 Sat by Pulse Oximetry 99 08/27/17 19:00 Pain Scale Pain Intensity 0 - Physical Exam General Appearance: other (well-developed white male, somnolent and arouses easily obese) Eye Exam: PERRL/EOMI, eyes nml inspection Ears, Nose, Throat Exam: normal ENT inspection, TMs normal, pharynx normal, moist mucous membranes Neck Exam: normal inspection, non-tender, supple, full range of motion Respiratory Exam: normal breath sounds, lungs clear, No respiratory distress Cardiovascular Exam: regular rate/rhythm, normal heart sounds, normal peripheral pulses Gastrointestinal/Abdomen Exam: soft, normal bowel sounds, No tenderness, No mass Back Exam: normal inspection, normal range of motion, No CVA tenderness, No vertebral tenderness Extremity Exam: normal inspection, normal range of motion, pelvis stable Neurologic Exam: alert, oriented x 3, cooperative, normal mood/affect, nml cerebellar function, nml station & gait, sensation nml, No motor deficits Skin Exam: normal color, warm, dry, No rash Lymphatic Exam: No adenopathy SpO2 Interpretation: normal (99%thank you him) SpO2: 99 Oxygen Delivery: Nasal Cannula - Course EKG Interpreted by Me: RATE (82 bpm), Sinus Rhythm, NORMAL AXIS, Other (EKG: Sinus rhythm 82 bpm normal axis no acute ST or T wave changes) - Radiology Exams Chest X-ray Interpretation: Interpreted by me, Other (no acute disease process) Ordered Tests: Active Orders 24 hr Category Date Time Status Accucheck STAT Care 08/27/17 19:41 Active Accucheck STAT Care 08/27/17 21:42 Active Dye Colorist Formulator STAT Care 08/27/17 19:10 Active EKG-ER Only STAT Care 08/27/17 19:41 Active IV Insertion STAT Care 08/27/17 19:09 Active Oxygen-ED Only NASAL CANNULA 3 lpm Care 08/27/17 19:12 Active Pulse Oximetry (ED) STAT Care 08/27/17 19:12 Active CHEST 1 VIEW (PORTABLE) Stat Exams 08/27/17 19:43 Taken CBC W DIFF Stat Lab 08/27/17 19:15 Completed CMP Stat Lab 08/27/17 19:15 Completed CULTURE,URINE Stat Lab 08/27/17 20:00 Received UA W/ MICROSCOPIC Stat Lab 08/27/17 20:00 Completed VENOUS BLOOD GAS Urgent Lab 08/27/17 20:07 Completed Respiratory Nebulizer STAT RT 08/27/17 19:47 Completed Medication Summary Discontinued Medications Generic Name Dose Route Start Last Admin Trade Name Freq PRN Reason Stop Dose Admin Albuterol/Ipratropium 3 ml 08/27/17 19:47 08/27/17 20:00 Duoneb 0.5-3 Mg/3 Ml Neb IH 08/27/17 19:48 3 ml STAT ONE Administration Albuterol/Ipratropium Confirm 08/27/17 19:57 Duoneb 0.5-3 Mg/3 Ml Neb Administered 08/27/17 19:58 Dose 3 ml IH .STK-MED ONE Sodium Chloride 1,000 mls @ 999 mls/hr 08/27/17 19:41 08/27/17 19:48 Sodium Chloride 0.9% 1000 Ml IV 08/27/17 20:41 999 mls/hr .Q1H1M STA Administration Sodium Chloride Confirm 08/27/17 19:48 Sodium Chloride 0.9% 1000 Ml Administered 08/27/17 19:49 Dose 1,000 mls @ ud .ROUTE .STK-MED ONE Insulin Human Regular 10 unit 08/27/17 19:47 08/27/17 20:00 Novolin R IV 08/27/17 19:48 10 unit STAT ONE Administration Insulin Human Regular Confirm 08/27/17 19:59 Novolin R Administered 08/27/17 20:00 Dose 10 unit .ROUTE .STK-MED ONE Lab/Rad Data: Laboratory Result Diagrams 08/27/17 19:15 08/27/17 19:15 Laboratory Results 08/27/17 08/27/17 08/27/17 Range/Units 20:07 20:00 19:15 WBC (4.0-10.5) K/mm3 RBC (4.1-5.6) M/mm3 Hgb (12.5-18.0) gm/dl Hct (42-50) % MCV (78-100) fl MCH (26-32) pg MCHC (32-36) g/dl RDW (11.5-14.0) % Plt Count (150-450) K/mm3 MPV (6-9.5) fl Gran % (36.0-66.0) % Eos # (Auto) (0-0.5) Lymphocytes % (24.0-44.0) % Monocytes % (0.0-12.0) % Eosinophils % (0.00-5.0) % Basophils % (0.0-0.4) % Absolute Granulocytes (1.4-6.9) Basophils # (0-0.4) VBG pH 7.40 (7.32-7.42) VBG pCO2 at Pat Temp 51 (42-55) mm/Hg VBG pO2 at Pat Temp 51 H (25-40) mm/Hg VBG HCO3 31.6 H* (22-28) meq/L VBG O2 Sat (Chase) 89.9 L (95-100) VBG Base Excess 5.3 H (-2.0-2.0) VBG Hemoglobin 15.9 VBG Carboxyhemoglobin 4.0 (0.0-6.9) % T HGB POC Potassium 3.3 L (3.5-5.1) Sodium (137-145) mmol/L Potassium (3.5-5.1) mmol/L Chloride (98-107) mmol/L Carbon Dioxide (22-30) mmol/L Anion Gap (5-15) MEQ/L BUN (9-20) mg/dL Creatinine (0.66-1.25) mg/dL Estimated GFR ML/MIN Glucose (74-106) mg/dL Calcium (8.4-10.2) mg/dL Total Bilirubin (0.2-1.3) mg/dL AST (17-59) U/L ALT (0-50) U/L Alkaline Phosphatase (38-126) U/L Ammonia 119 H (9-30) umol/L Serum Total Protein (6.3-8.2) g/dL Albumin (3.5-5.0) g/dL Ur Collection Type CCMS Urine Color YELLOW (YELLOW) Urine Appearance CLEAR (CLEAR) Urine pH 7.0 (5-6) Ur Specific [place] 1.010 (1.005-1.025) Urine Protein NEGATIVE (Negative) Urine Ketones NEGATIVE (NEGATIVE) Urine Blood TRACE NON-HEM (0-5) Collin/ul Urine Nitrite NEGATIVE (NEGATIVE) Urine Bilirubin NEGATIVE (NEGATIVE) Urine Urobilinogen NORMAL (0-1) mg/dL Ur Leukocyte Esterase 1+ (NEGATIVE) Urine Microscopic RBC 0-2 (0-2) /HPF Urine Microscopic WBC 2-5 (0-5) /HPF Ur Epithelial Cells RARE (FEW) /HPF Urine Bacteria RARE (NEGATIVE) /HPF Urine Culture Reflexed YES (NO) Urine Glucose 1000 (NEGATIVE) mg/dL Specimen Received 08-27-17199908/27/17 08/27/17 Range/Units 19:15 19:15 WBC 6.4 (4.0-10.5) K/mm3 RBC 4.86 (4.1-5.6) M/mm3 Hgb 15.3 (12.5-18.0) gm/dl Hct 43.1 (42-50) % MCV 88.7 (78-100) fl MCH 31.5 (26-32) pg MCHC 35.5 (32-36) g/dl RDW 14.2 H (11.5-14.0) % Plt Count 97 L (150-450) K/mm3 MPV 11.8 H (6-9.5) fl Gran % 67.1 H (36.0-66.0) % Eos # (Auto) 0.24 (0-0.5) Lymphocytes % 16.4 L (24.0-44.0) % Monocytes % 12.2 H (0.0-12.0) % Eosinophils % 3.8 (0.00-5.0) % Basophils % 0.5 (0.0-0.4) % Absolute Granulocytes 4.29 (1.4-6.9) Basophils # 0.03 (0-0.4) VBG pH (7.32-7.42) VBG pCO2 at Pat Temp (42-55) mm/Hg VBG pO2 at Pat Temp (25-40) mm/Hg VBG HCO3 (22-28) meq/L VBG O2 Sat (Chase) (95-100) VBG Base Excess (-2.0-2.0) VBG Hemoglobin VBG Carboxyhemoglobin (0.0-6.9) % T HGB POC Potassium (3.5-5.1) Sodium 125 L (137-145) mmol/L Potassium 3.1 L (3.5-5.1) mmol/L Chloride 86 L (98-107) mmol/L Carbon Dioxide 28 (22-30) mmol/L Anion Gap 14.7 (5-15) MEQ/L BUN 38 H (9-20) mg/dL Creatinine 1.54 H (0.66-1.25) mg/dL Estimated GFR 50 ML/MIN Glucose 562 H* (74-106) mg/dL Calcium 8.7 (8.4-10.2) mg/dL Total Bilirubin 2.00 H (0.2-1.3) mg/dL AST 108 H (17-59) U/L ALT 66 H (0-50) U/L Alkaline Phosphatase 112 (38-126) U/L Ammonia (9-30) umol/L Serum Total Protein 7.3 (6.3-8.2) g/dL Albumin 3.4 L (3.5-5.0) g/dL Ur Collection Type Urine Color (YELLOW) Urine Appearance (CLEAR) Urine pH (5-6) Ur Specific [place] (1.005-1.025) Urine Protein (Negative) Urine Ketones (NEGATIVE) Urine Blood (0-5) Collin/ul Urine Nitrite (NEGATIVE) Urine Bilirubin (NEGATIVE) Urine Urobilinogen (0-1) mg/dL Ur Leukocyte Esterase (NEGATIVE) Urine Microscopic RBC (0-2) /HPF Urine Microscopic WBC (0-5) /HPF Ur Epithelial Cells (FEW) /HPF Urine Bacteria (NEGATIVE) /HPF Urine Culture Reflexed (NO) Urine Glucose (NEGATIVE) mg/dL Specimen Received - Progress Progress: improved Progress Note: 08/27/17 22:03 Patient arrives with complaint of decreased mental status increased blood sugars at the detention On arrival patient's a blood sugar is 562 on his chemistry he also is noted to have a sodium of 125 and a potassium of 3.1 Patient was given a DuoNeb treatment of EKG normal sinus rhythm no acute ST or T wave changes were noted chest x-ray was unremarkable patient was noted to have an ammonia level of 119 he does have a history of cirrhosis as documented on previous charts patient was somnolent however, he aroused easily he was oriented to person place and essentially normal neurologic Patient was given IV normal saline DuoNeb treatment as noted above Humulin R 10 units IV , Accu-Chek was noted to come down to 369 patient's vitals were stable I discussed the case with Dr. Wayne who was applications support specialist for Dr. Ayala will place patient in observation diagnosis 1 mental status change 2. hyperammonia, 3. Hyperglycemia 4. Hyponatremia 5. Hypokalemia. Will place patient on telemetry obtain every 4 hours neuro checks provide normal saline with 20 mEq of potassium chloride to run at 100 mL per hour. Begin lactulose. Begin a moderate sliding scale insulin coverage. - Departure Time of Disposition: 22:07 Departure Disposition: Observation Clinical Impression: Hyperglycemia, Hyponatremia, Hypokalemia, Hyperammonemia Mental status change Qualifiers: Altered mental status type: unspecified Qualified Code(s): R41.82 - Altered mental status, unspecified Condition: Fair Critical Care Time: No Referrals: HANK MERA [Primary Care Provider] -
[2017-08-27] MEDS ORDERED: Sodium Chloride 0.9% 1000 ML 1,000 ML ONE (19:48)
[2017-08-27] MEDS ORDERED: NovoLIN R ONE (19:59)
[2017-08-27 20:12] LABS: Appearance CLEAR (CLEAR); Bilirubin NEGATIVE (NEGATIVE); Blood TRACE NON-HEM Ery/ul (0-5); Glucose 1000 mg/dL (NEGATIVE); Ketones NEGATIVE (NEGATIVE); Leukocyte Esterase 1+ (NEGATIVE); Nitrite NEGATIVE (NEGATIVE); Protein,Urine Dip NEGATIVE (Negative); Urobilinogen NORMAL mg/dL (0-1)
[2017-08-27 20:13] LABS: ALBUMIN 3.4 g/dL (3.5-5.0); ANION GAP 14.7 MEQ/L (5-15); Calcium 8.7 mg/dL (8.4-10.2); Creatinine 1 1.54 mg/dL (0.66-1.25); Potassium 3.1 mmol/L (3.5-5.1); Total Protein 7.3 g/dL (6.3-8.2)
[2017-08-27 20:17] LABS: VBG BASE EXCESS 5.3 (-2.0-2.0); VBG HCO3- 31.6 meq/L (22-28); VBG HEMOGLOBIN 15.9; VBG O2 SATURATION 89.9 (95-100); VBG POTASSIUM 3.3 (3.5-5.1); VBG pH 7.4 (7.32-7.42)
[2017-08-27 20:24] LABS: Bacteria RARE /HPF (NEGATIVE); Epithelial Cells RARE /HPF (FEW)
[2017-08-27 22:24] LABS: Slide Review 1 YES
[2017-08-27] MEDS ORDERED: DUONEB 0.5-3 MG/3 ml Neb IH PRN (23:09)
[2017-08-28] MEDS ORDERED: LACTULOSE 20 GM/30ML UD CUP ONE ×2 (00:19→06:17)
[2017-08-28] MEDS: Sodium Chloride 0.9% W/ 20 mEq KCl/LITER 1,000 ML IV SCH ×2 (00:23→10:21)
[2017-08-28] MEDS: Enulose 10 GM/15 ML PO SCH ×2 (00:24→06:18)
[2017-08-28] MEDS: NovoLOG Insulin SQ PRN ×4 (00:25→11:53)
[2017-08-28 05:56] LABS: BASOPHIL % 0.3 % (0.0-0.4); Basophil (Absolute #) 0.02 (0-0.4); Eosinophil % 6.2 % (0.00-5.0); Eosinophil (Absolute #) 0.44 (0-0.5); Granulocyte Absolute (ANC) 4.22 (1.4-6.9); Granulocytes % 59.5 % (36.0-66.0); Hematocrit 40.6 % (42-50); Hemoglobin 14.5 gm/dl (12.5-18.0); Lymphocyte (Absolute #) 1.52 (1.0-4.6); Lymphocytes % 21.4 % (24.0-44.0); Mean Cell Volume 88.8 fl (78-100); Mean Corpuscular Hemoglobin 31.7 pg (26-32); Mean Corpuscular Hgb Concent. 35.7 g/dl (32-36); Mean Platelet Volume 11.3 fl (6-9.5); Monocyte (Absolute #) 0.89 (0.0-1.3); Monocytes % 12.6 % (0.0-12.0); Red Blood Count 4.57 M/mm3 (4.1-5.6); Red Cell Distribution Width 14.2 % (11.5-14.0); White Blood Count 7.1 K/mm3 (4.0-10.5)
[2017-08-28] MEDS ORDERED: DUONEB 0.5-3 MG/3 ml Neb IH SCH (07:00)
[2017-08-28] MEDS ORDERED: Advair Hfa 115/21 Common canister IH SCH (07:00)
[2017-08-28 07:08] LABS: Calcium 8.5 mg/dL (8.4-10.2); Creatinine 1 1.32 mg/dL (0.66-1.25)
[2017-08-28 07:29] LABS: Platelet Count 86 K/mm3 (150-450)
[2017-08-28 07:55] LABS: ALBUMIN 3.1 g/dL (3.5-5.0); ANION GAP 11.8 MEQ/L (5-15); Potassium 3.1 mmol/L (3.5-5.1); Total Protein 6.8 g/dL (6.3-8.2)
--- NOTE | 2017-08-28 08:47 | XRAY ---
Indication: Hypoglycemia. Comparison: July 31, 2017. Portable apical lordotic chest remains clear. Heart and mediastinal structures within normal limits for AP portable technique. Bony thorax intact. Previous right arm PICC line has been removed. Impression: Nonacute portable chest.
[2017-08-28] MEDS ORDERED: MILK OF MAGNESIA 30 ML PO PRN (09:28)
[2017-08-28] MEDS ORDERED: TYLENOL 325 MG PO PRN (09:28)
[2017-08-28] MEDS ORDERED: Provigil 100MG Tablet PO SCH (10:00)
[2017-08-28] MEDS ORDERED: MIDAMOR PO SCH (10:00)
[2017-08-28] MEDS ORDERED: ASCORBATE SODIUM PO SCH (10:00)
[2017-08-28] MEDS ORDERED: Vitamin C 500 MG PO SCH (10:00)
[2017-08-28] MEDS ORDERED: MODAFINIL 200 MG PO SCH (10:00)
[2017-08-28] MEDS ORDERED: VITAMIN B-1 100 MG PO SCH (10:00)
[2017-08-28] MEDS ORDERED: Artificial Tears 15 ML OP SCH (10:00)
[2017-08-28] MEDS ORDERED: NON-FORMULARY ITEM (Multivitamin [Multivitamins] 1 EACH) PO SCH (10:00)
[2017-08-28] MEDS ORDERED: Protonix 40MG Tablet PO SCH (10:00)
[2017-08-28] MEDS ORDERED: ASCORBIC ACID PO SCH (10:00)
[2017-08-28] MEDS ORDERED: LACTULOSE 20 GM PO SCH (10:00)
[2017-08-28] MEDS ORDERED: [UNRECOGNIZED DRUG - OTHER] PO SCH (10:00)
[2017-08-28] MEDS ORDERED: SYNTHROID 75 MCG PO SCH (10:00)
[2017-08-28] MEDS ORDERED: Keppra 250 MG PO SCH (10:00)
[2017-08-28] MEDS ORDERED: BUMEX 1 MG PO SCH (10:00)
[2017-08-28] MEDS ORDERED: NEOMYCIN SULFATE 500 MG PO SCH ×2 (10:00)
[2017-08-28] MEDS ORDERED: NON-FORMULARY ITEM (Dextran 70/Hypromellose [Artificial Tears] 1 DROP) OP SCH (10:00)
[2017-08-28] MEDS: LACTULOSE 20 GM/30ML UD CUP PO SCH ×2 (10:16→12:43)
[2017-08-28] MEDS ORDERED: Klor Con 10 MEQ PO SCH (12:00)
[2017-08-28] MEDS ORDERED: NON-FORMULARY ITEM (Potassium Chloride 20 Meq [Klor-Con 20 Meq] 40 MEQ) PO SCH (12:00)
[2017-08-28] MEDS ORDERED: Enulose 10 GM/15 ML PO SCH (12:00)
[2017-08-28 12:05] VITALS: BP 136/63; PULSE 89; O2SAT 96
[2017-08-28] MEDS ORDERED: NON-FORMULARY ITEM (Escitalopram Oxalate [Lexapro] 20 MG) PO SCH (22:00)
[2017-08-28] MEDS ORDERED: ARIPIPRAZOLE PO SCH (22:00)
[2017-08-28] MEDS ORDERED: NON-FORMULARY ITEM (Aripiprazole [Abilify] 5 MG) PO SCH (22:00)
[2017-08-28] MEDS ORDERED: Lexapro 10 MG PO SCH (22:00)
[2017-08-30 20:33] LABS: HEPATITIS B VIRUS CORE TOT AB Non Reactive (Non Reactive); HEPATITIS C VIRUS ANTIBODY Non Reactive (Non Reactive); Hepatitis B Surface Antigen Non Reactive (Non Reactive)
== END 2017-08-28 15:10 ==
LOC: ED 18:56 → MED SURG 23:08
PROVIDERS: ADMIT Family Medicine; ATTEND Family Medicine
DX: E87.1 Hypo-osmolality and hyponatremia (principal); E87.6 Hypokalemia; K70.30 Alcoholic cirrhosis of liver without ascites; J44.9 Chronic obstructive pulmonary disease, unspecified; G30.9 Alzheimer's disease, unspecified; F02.80 Dementia in other diseases classified elsewhere, unspecified severity, without behavioral disturbance, psychotic disturbance, mood disturbance, and anxiety; G47.30 Sleep apnea, unspecified; E78.5 Hyperlipidemia, unspecified; E03.9 Hypothyroidism, unspecified; E11.9 Type 2 diabetes mellitus without complications; Z79.4 Long term (current) use of insulin; I10 Essential (primary) hypertension; Z79.899 Other long term (current) drug therapy
CPT/HCPCS: 36000; 36415; 51702; 71045; 80053; 80074; 81000; 82140; 82805; 82962; 85025; 87077; 87086; 87186; 93005; 93041; 93268; 94640; 94660; 94760; 96360; 96361; 96374; 99285; G0378; A9270-GY

== ENCOUNTER 2017-09-02 11:48 | Inpatient (IN) | payer MEDICARE ==
[2017-09-02] MEDS ORDERED: Sodium Chloride 0.9% 1000 ML 1,000 ML (12:52)
[2017-09-02] MEDS: Sodium Chloride 0.9% 1000 ML 1,000 ML IV ×2 (13:01→15:43)
[2017-09-02 13:02] LABS: Lactic Acid 2.3 (0.4-2.0)
[2017-09-02 13:22] LABS: Appearance HAZY (CLEAR); Bilirubin NEGATIVE (NEGATIVE); Blood 50 Ery/ul (0-5); COMPLETE URINE MICROSCOPIC? YES; Collection Type INDWELLING CATH; Glucose NEGATIVE (NEGATIVE); Ketones NEGATIVE (NEGATIVE); Leukocyte Esterase 2+ (NEGATIVE); Nitrite NEGATIVE (NEGATIVE); Protein,Urine Dip NEGATIVE (Negative); Specific Gravity 1.005 (1.005-1.025); Urobilinogen NORMAL mg/dL (0-1)
[2017-09-02 13:27] LABS: BASOPHIL % 0.3 % (0.0-0.4); Basophil (Absolute #) 0.02 (0-0.4); Eosinophil % 3.3 % (0.00-5.0); Eosinophil (Absolute #) 0.21 (0-0.5); Granulocyte Absolute (ANC) 3.92 (1.4-6.9); Granulocytes % 62.6 % (36.0-66.0); Hematocrit 45.8 % (42-50); Hemoglobin 16.3 gm/dl (12.5-18.0); Lymphocyte (Absolute #) 1.21 (1.0-4.6); Lymphocytes % 19.3 % (24.0-44.0); Mean Corpuscular Hgb Concent. 35.6 g/dl (32-36); Mean Platelet Volume 12.3 fl (6-9.5); Monocyte (Absolute #) 0.91 (0.0-1.3); Monocytes % 14.5 % (0.0-12.0); Platelet Count 97 K/mm3 (150-450); Red Blood Count 5.09 M/mm3 (4.1-5.6); Red Cell Distribution Width 14.3 % (11.5-14.0); White Blood Count 6.3 K/mm3 (4.0-10.5)
[2017-09-02 13:30] LABS: ALBUMIN 3.7 g/dL (3.5-5.0); ALKALINE PHOSPHATASE 124 U/L (38-126); ANION GAP 11.9 MEQ/L (5-15); BLOOD UREA NITROGEN 48 mg/dL (9-20); CHLORIDE 89 mmol/L (98-107); Calcium 9.6 mg/dL (8.4-10.2); Carbon Dioxide 37 mmol/L (22-30); Creatinine 1 1.47 mg/dL (0.66-1.25); EST GLOMERULAR FILTRATION RATE 53 ML/MIN; Glucose 265 mg/dL (74-106); LIPASE 215 U/L (23-300); Potassium 3.1 mmol/L (3.5-5.1); SGOT/AST 132 U/L (17-59); SGPT/ALT 85 U/L (0-50); SODIUM 134 mmol/L (137-145); Total Protein 7.9 g/dL (6.3-8.2)
[2017-09-02] MEDS ORDERED: Klor Con 10 MEQ PO (13:44)
[2017-09-02] MEDS: Klor Con 10 MEQ PO ×2 (13:46→19:58)
[2017-09-02 14:03] LABS: ADD MANUAL DIFF? NO (NO)
[2017-09-02 14:12] LABS: ADD URINE CULTURE? YES (NO); Bacteria FEW /HPF (NEGATIVE)
[2017-09-02] MEDS ORDERED: NovoLIN R SQ (14:47)
[2017-09-02] MEDS ORDERED: Zofran 4 MG/2 ML VIAL IV (14:47)
[2017-09-02] MEDS ORDERED: TYLENOL 325 MG PO ×2 (14:47→15:45)
[2017-09-02 14:56] LABS: INFLUENZA A NEGATIVE (NEGATIVE)
[2017-09-02 14:56] LABS: INFLUENZA B NEGATIVE (NEGATIVE); RESPIRATORY SYNCTIAL VIRUS NEGATIVE (Negative)
[2017-09-02] MEDS: DEXTROSE IV (15:42)
[2017-09-02] MEDS: GARAMYCIN IV (15:42)
[2017-09-02] MEDS: WATER IV (15:42)
[2017-09-02] MEDS ORDERED: ASPIRIN PO (15:45)
[2017-09-02] MEDS ORDERED: CAFFEINE PO (15:45)
[2017-09-02] MEDS ORDERED: MENTHOL PO (15:45)
[2017-09-02] MEDS ORDERED: ACETAMINOPHEN PO (15:45)
[2017-09-02 15:54] LABS: Slide Review 1 YES
[2017-09-02] MEDS ORDERED: NON-FORMULARY ITEM (Potassium Chloride 20 Meq [Klor-Con 20 Meq] 40 MEQ) PO (16:00)
[2017-09-02 16:15] LABS: Lactic Acid 2.3 (0.4-2.0)
[2017-09-02] MEDS ORDERED: CEPACOL SORE THROAT LOZENGE PO (16:19)
[2017-09-02] MEDS ORDERED: Ecotrin 325 MG PO (16:30)
[2017-09-02] MEDS ORDERED: LACTULOSE 20 GM PO (17:00)
[2017-09-02] MEDS: LACTULOSE 20 GM/30ML UD CUP PO (17:08)
[2017-09-02] MEDS: NovoLOG Insulin SQ ×2 (17:08→20:25)
[2017-09-02] MEDS: DUONEB 0.5-3 MG/3 ml Neb IH (21:14)
[2017-09-02] MEDS ORDERED: NON-FORMULARY ITEM (Dextran 70/Hypromellose [Artificial Tears] 1 DROP) OP (22:00)
[2017-09-02] MEDS ORDERED: NON-FORMULARY ITEM (Insulin Detemir [Levemir] 30 UNIT) SQ (22:00)
[2017-09-02] MEDS ORDERED: NON-FORMULARY ITEM (Aripiprazole [Abilify] 5 MG) PO (22:00)
[2017-09-02] MEDS ORDERED: NON-FORMULARY ITEM (Escitalopram Oxalate [Lexapro] 20 MG) PO (22:00)
[2017-09-03] MEDS: Abilify 10 MG PO ×2 (00:01→22:32)
[2017-09-03] MEDS: Klor Con 10 MEQ PO ×5 (00:02→20:14)
[2017-09-03] MEDS: Oxy-IR 5 MG PO ×4 (00:02→22:31)
[2017-09-03] MEDS: Artificial Tears 15 ML OP ×4 (00:03→22:31)
[2017-09-03] MEDS: CORTISONE 1% CREAM TOP ×3 (00:04→22:54)
[2017-09-03] MEDS: Klonopin 0.5 MG PO ×4 (00:05→22:34)
[2017-09-03] MEDS: Lantus Insulin SQ ×3 (00:05→22:37)
[2017-09-03] MEDS: MIDAMOR PO ×3 (00:06→17:24)
[2017-09-03] MEDS: NEOMYCIN SULFATE 500 MG PO ×4 (00:06→22:34)
[2017-09-03] MEDS: NovoLOG Insulin SQ ×7 (00:07→17:22)
[2017-09-03] MEDS: Sodium Chloride 0.9% 1000 ML 1,000 ML IV ×2 (03:00→14:54)
[2017-09-03] MEDS: DEXTROSE IV ×3 (06:16→17:22)
[2017-09-03] MEDS: WATER IV ×3 (06:16→17:22)
[2017-09-03] MEDS: GARAMYCIN IV ×3 (06:16→17:22)
[2017-09-03 06:22] LABS: BASOPHIL % 0.2 % (0.0-0.4); Basophil (Absolute #) 0.01 (0-0.4); Eosinophil % 4.3 % (0.00-5.0); Eosinophil (Absolute #) 0.21 (0-0.5); Granulocytes % 54.6 % (36.0-66.0); Hematocrit 41.3 % (42-50); Hemoglobin 14.5 gm/dl (12.5-18.0); Lymphocyte (Absolute #) 1.29 (1.0-4.6); Lymphocytes % 26.1 % (24.0-44.0); Mean Cell Volume 90.2 fl (78-100); Mean Corpuscular Hemoglobin 31.7 pg (26-32); Mean Corpuscular Hgb Concent. 35.1 g/dl (32-36); Mean Platelet Volume 11.4 fl (6-9.5); Monocyte (Absolute #) 0.73 (0.0-1.3); Monocytes % 14.8 % (0.0-12.0); Platelet Count 72 K/mm3 (150-450); Red Blood Count 4.58 M/mm3 (4.1-5.6); White Blood Count 4.9 K/mm3 (4.0-10.5)
[2017-09-03 06:26] LABS: ADD MANUAL DIFF? NO (NO)
[2017-09-03 06:30] LABS: Lactic Acid 2.1 (0.4-2.0)
[2017-09-03 06:35] LABS: ANION GAP 10.9 MEQ/L (5-15); BLOOD UREA NITROGEN 40 mg/dL (9-20); CHLORIDE 92 mmol/L (98-107); Calcium 8.5 mg/dL (8.4-10.2); Carbon Dioxide 33 mmol/L (22-30); Creatinine 1 1.28 mg/dL (0.66-1.25); EST GLOMERULAR FILTRATION RATE > 60 ML/MIN; Glucose 346 mg/dL (74-106); SODIUM 133 mmol/L (137-145)
[2017-09-03 06:53] LABS: Potassium 2.9 mmol/L (3.5-5.1)
[2017-09-03 07:23] LABS: MAGNESIUM 1.9 mg/dL (1.6-2.3)
[2017-09-03] MEDS: DUONEB 0.5-3 MG/3 ml Neb IH ×3 (07:25→20:16)
[2017-09-03 07:41] LABS: Slide Review 1 YES
[2017-09-03] MEDS: POTASSIUM CHLORIDE 20 mEq IN WATER 100ML 20 MEQ/100 ML BAG IV ×2 (08:02→09:41)
[2017-09-03 08:42] LABS: Gentamicin,Trough 4.68 ug/mL (0.6-2.0)
[2017-09-03] MEDS: ENOXAPARIN SODIUM SQ (09:42)
[2017-09-03] MEDS: BUMEX 1 MG PO ×2 (09:42→17:22)
[2017-09-03] MEDS: Ditropan XL 5 MG PO (09:42)
[2017-09-03] MEDS: SYNTHROID 75 MCG PO (09:43)
[2017-09-03] MEDS: Lyrica 50MG PO ×3 (09:43→22:31)
[2017-09-03] MEDS: Protonix 40MG Tablet PO ×2 (09:43→22:38)
[2017-09-03] MEDS: Keppra 250 MG PO ×3 (09:43→22:33)
[2017-09-03] MEDS: LACTULOSE 20 GM/30ML UD CUP PO ×5 (09:45→22:31)
[2017-09-03 12:17] LABS: Gentamicin, Peak 13.02 ug/mL (5.0-12.0)
[2017-09-03 14:18] LABS: MAGNESIUM 1.8 mg/dL (1.6-2.3)
[2017-09-03 14:18] LABS: Potassium 3.5 mmol/L (3.5-5.1)
[2017-09-03 14:26] LABS: Gentamicin, Random 3.95 ug/mL
[2017-09-03] MEDS: Lexapro 10 MG PO ×2 (23:11)
[2017-09-04] MEDS: Klor Con 10 MEQ PO ×6 (00:38→21:33)
[2017-09-04] MEDS: DUONEB 0.5-3 MG/3 ml Neb IH ×2 (05:18→20:43)
[2017-09-04] MEDS: DEXTROSE IV ×2 (06:46→17:03)
[2017-09-04] MEDS: WATER IV ×2 (06:46→17:03)
[2017-09-04] MEDS: GARAMYCIN IV ×2 (06:46→17:03)
[2017-09-04] MEDS: SYNTHROID 75 MCG PO (07:58)
[2017-09-04] MEDS: BUMEX 1 MG PO ×2 (07:58→16:52)
[2017-09-04] MEDS: Klonopin 0.5 MG PO (07:59)
[2017-09-04] MEDS: Ditropan XL 5 MG PO (07:59)
[2017-09-04] MEDS: Keppra 250 MG PO ×3 (08:00→21:30)
[2017-09-04] MEDS: LACTULOSE 20 GM/30ML UD CUP PO ×4 (08:00→21:32)
[2017-09-04] MEDS: Protonix 40MG Tablet PO (08:00)
[2017-09-04] MEDS: Artificial Tears 15 ML OP ×3 (08:00→21:33)
[2017-09-04] MEDS: Oxy-IR 5 MG PO (08:00)
[2017-09-04] MEDS: CORTISONE 1% CREAM TOP ×2 (08:01→21:33)
[2017-09-04] MEDS: NovoLOG Insulin SQ ×6 (08:01→16:53)
[2017-09-04] MEDS: Lyrica 50MG PO ×2 (08:02→21:30)
[2017-09-04] MEDS: MIDAMOR PO ×2 (08:02→16:54)
[2017-09-04] MEDS: NEOMYCIN SULFATE 500 MG PO ×3 (08:02→21:31)
[2017-09-04] MEDS: Lantus Insulin SQ ×2 (08:02→21:30)
[2017-09-04] MEDS: ENOXAPARIN SODIUM SQ (08:13)
[2017-09-04] MEDS: PHARMACY DOSING REQUIRED: VANCOMYCIN IV (09:55)
[2017-09-04] MEDS: VANCOCIN 1 GM VIAL*** 2 GM in Sodium Chloride 0.9% 500 ML 500 ML IV (09:55)
[2017-09-04] MEDS: MILK OF MAGNESIA 30 ML PO (09:59)
[2017-09-04] MEDS ORDERED: Klonopin 0.5 MG PO (12:39)
[2017-09-04] MEDS ORDERED: Oxy-IR 5 MG PO (12:46)
[2017-09-04] MEDS: Sodium Chloride 0.9% 1000 ML 1,000 ML IV (17:05)
[2017-09-04] MEDS: Lexapro 10 MG PO (21:29)
[2017-09-04] MEDS: Abilify 10 MG PO (21:29)
[2017-09-05] MEDS: Sodium Chloride 0.9% 1000 ML 1,000 ML IV ×2 (04:05→19:53)
[2017-09-05 06:34] LABS: Gentamicin,Trough 1.97 ug/mL (0.6-2.0)
[2017-09-05] MEDS: Klor Con 10 MEQ PO ×5 (06:34→22:50)
[2017-09-05] MEDS: GARAMYCIN IV ×2 (06:53→18:39)
[2017-09-05] MEDS: WATER IV ×2 (06:53→18:39)
[2017-09-05] MEDS: DEXTROSE IV ×2 (06:53→18:39)
[2017-09-05] MEDS: NovoLOG Insulin SQ ×7 (07:59→22:51)
[2017-09-05] MEDS: BUMEX 1 MG PO ×2 (10:07→16:33)
[2017-09-05] MEDS: ENOXAPARIN SODIUM SQ (10:07)
[2017-09-05] MEDS: Ditropan XL 5 MG PO (10:07)
[2017-09-05] MEDS: Lyrica 50MG PO ×2 (10:08→22:50)
[2017-09-05] MEDS: SYNTHROID 75 MCG PO (10:08)
[2017-09-05] MEDS: Protonix 40MG Tablet PO (10:08)
[2017-09-05] MEDS: NEOMYCIN SULFATE 500 MG PO ×3 (10:08→22:50)
[2017-09-05] MEDS: MIDAMOR PO ×2 (10:09→16:36)
[2017-09-05] MEDS: LACTULOSE 20 GM/30ML UD CUP PO ×4 (10:09→22:45)
[2017-09-05] MEDS: CORTISONE 1% CREAM TOP ×2 (10:09→23:00)
[2017-09-05] MEDS: Artificial Tears 15 ML OP ×3 (10:10→22:45)
[2017-09-05] MEDS: Lantus Insulin SQ ×2 (10:15→22:48)
[2017-09-05] MEDS: VANCOCIN 1 GM VIAL*** 2 GM in Sodium Chloride 0.9% 500 ML 500 ML IV (10:15)
[2017-09-05] MEDS: TROUGH DRUG LEVELS IJ (19:49)
[2017-09-05] MEDS: DUONEB 0.5-3 MG/3 ml Neb IH (20:16)
[2017-09-05] MEDS: Abilify 10 MG PO (22:43)
[2017-09-05] MEDS: Norco 10/325 MG Tablet PO (22:46)
[2017-09-05] MEDS: Keppra 250 MG PO (22:46)
[2017-09-05] MEDS: Lexapro 10 MG PO (22:49)
[2017-09-06] MEDS: DEXTROSE IV ×2 (05:24→10:52)
[2017-09-06] MEDS: GARAMYCIN IV ×2 (05:24→10:52)
[2017-09-06] MEDS: WATER IV ×2 (05:24→10:52)
[2017-09-06] MEDS: Sodium Chloride 0.9% 1000 ML 1,000 ML IV (05:35)
[2017-09-06 06:04] LABS: Hematocrit 41.5 % (42-50); Hemoglobin 14.7 gm/dl (12.5-18.0); Mean Cell Volume 90.6 fl (78-100); Mean Corpuscular Hemoglobin 32.1 pg (26-32); Mean Corpuscular Hgb Concent. 35.4 g/dl (32-36); Mean Platelet Volume 11.1 fl (6-9.5); Platelet Count 80 K/mm3 (150-450); Red Blood Count 4.58 M/mm3 (4.1-5.6); White Blood Count 5.5 K/mm3 (4.0-10.5)
[2017-09-06 06:05] LABS: BLOOD UREA NITROGEN 28 mg/dL (9-20); CHLORIDE 99 mmol/L (98-107); Calcium 8.3 mg/dL (8.4-10.2); Carbon Dioxide 35 mmol/L (22-30); EST GLOMERULAR FILTRATION RATE > 60 ML/MIN; Glucose 143 mg/dL (74-106); SODIUM 139 mmol/L (137-145)
[2017-09-06 06:06] LABS: Potassium 2.6 mmol/L (3.5-5.1)
[2017-09-06 06:09] LABS: Gentamicin,Trough 2.36 ug/mL (0.6-2.0)
[2017-09-06] MEDS: POTASSIUM CHLORIDE 20 mEq IN WATER 100ML 20 MEQ/100 ML BAG IV ×2 (06:20→08:59)
[2017-09-06] MEDS: Klor Con 10 MEQ PO ×3 (08:21→14:30)
[2017-09-06] MEDS: NovoLOG Insulin SQ ×2 (08:22→11:47)
[2017-09-06] MEDS: Artificial Tears 15 ML OP (09:24)
[2017-09-06] MEDS: Ditropan XL 5 MG PO (09:25)
[2017-09-06] MEDS: LACTULOSE 20 GM/30ML UD CUP PO (09:26)
[2017-09-06] MEDS: NEOMYCIN SULFATE 500 MG PO (09:26)
[2017-09-06] MEDS: Keppra 250 MG PO (09:26)
[2017-09-06] MEDS: MIDAMOR PO (09:26)
[2017-09-06] MEDS: Lyrica 50MG PO (09:26)
[2017-09-06] MEDS: SYNTHROID 75 MCG PO (09:27)
[2017-09-06] MEDS: ENOXAPARIN SODIUM SQ (09:27)
[2017-09-06] MEDS: Protonix 40MG Tablet PO (09:27)
[2017-09-06] MEDS: CORTISONE 1% CREAM TOP (09:28)
[2017-09-06] MEDS: BUMEX 1 MG PO (09:31)
[2017-09-06] MEDS: Lantus Insulin SQ (10:50)
[2017-09-06] MEDS: VANCOCIN 1 GM VIAL*** 2 GM in Sodium Chloride 0.9% 500 ML 500 ML IV (11:53)
[2017-09-06 12:02] LABS: Vancomycin, Trough 11.13 ug/mL (5-10)
[2017-09-06 13:45] LABS: MAGNESIUM 1.6 mg/dL (1.6-2.3)
== END 2017-09-06 16:01 ==
LOC: ED 11:48 → MED SURG 14:37
PROVIDERS: Family Medicine
CPT/HCPCS: 36415; 71046; 80048; 80053; 80170; 81000; 82962; 83605; 83690; 83735; 84132; 85025; 87040; 87077; 87086; 87186; 87631; 94150; 94640; 94660; 94760; 96360; 99285; J1580; J1650; J3370; J3480

== ENCOUNTER 2017-09-10 12:40 | Inpatient (IN) | payer MEDICARE ==
[2017-09-10] MEDS ORDERED: NARCAN 2 MG/2 ML IV ONE (12:51)
[2017-09-10 12:58] LABS: BASOPHIL % 0.5 % (0.0-0.4); Basophil (Absolute #) 0.03 (0-0.4); Eosinophil % 4.7 % (0.00-5.0); Eosinophil (Absolute #) 0.26 (0-0.5); Granulocyte Absolute (ANC) 3.32 (1.4-6.9); Granulocytes % 59.6 % (36.0-66.0); Hematocrit 44.7 % (42-50); Hemoglobin 15.5 gm/dl (12.5-18.0); Lymphocyte (Absolute #) 1.28 (1.0-4.6); Mean Cell Volume 91.2 fl (78-100); Mean Corpuscular Hemoglobin 31.6 pg (26-32); Mean Corpuscular Hgb Concent. 34.7 g/dl (32-36); Mean Platelet Volume 11.6 fl (6-9.5); Monocyte (Absolute #) 0.68 (0.0-1.3); Monocytes % 12.2 % (0.0-12.0); Platelet Count 81 K/mm3 (150-450); Red Cell Distribution Width 14.5 % (11.5-14.0); White Blood Count 5.6 K/mm3 (4.0-10.5)
[2017-09-10] MEDS ORDERED: Sodium Chloride 0.9% 1000 ML 1,000 ML IV SCH (13:00)
[2017-09-10 13:08] LABS: INR 1.12 (0.8-3.0)
[2017-09-10 13:12] LABS: ALBUMIN 3.7 g/dL (3.5-5.0); ALKALINE PHOSPHATASE 126 U/L (38-126); ANION GAP 13.3 MEQ/L (5-15); BLOOD UREA NITROGEN 19 mg/dL (9-20); CHLORIDE 104 mmol/L (98-107); Calcium 9.7 mg/dL (8.4-10.2); Carbon Dioxide 27 mmol/L (22-30); Creatinine 1 1.27 mg/dL (0.66-1.25); Glucose 215 mg/dL (74-106); Potassium 5.5 mmol/L (3.5-5.1); SGOT/AST 95 U/L (17-59); SGPT/ALT 78 U/L (0-50); SODIUM 139 mmol/L (137-145)
--- NOTE | 2017-09-10 13:13 | ERPHSYRPT ---
- History of Present Illness Time Seen by Provider: 09/10/17 12:50 Source: EMS, shelter records Physician History: CC: decreased response Hx: 56 y/o patient from [facility]. He has DM, COPD, hx seizures. [place] called EMS for diff breathing. He was on mask oxygen. No seizure reported. Glc ok. Pt unable to give hx. Timing/Duration: today Severity: severe Allergies/Adverse Reactions: metformin Allergy (Mild, Verified 09/10/17 12:44) Diarrhea phenytoin sodium [From Dilantin] Allergy (Mild, Verified 09/10/17 12:44) phenytoin sodium extended [From Dilantin] Allergy (Mild, Verified 07/15/17 18:38 ) carbamazepine [From Tegretol] Allergy (Unknown, Verified 09/10/17 12:44) Home Medications: Aripiprazole [Abilify] 5 mg PO HS 06/19/17 [History] Escitalopram Oxalate [Lexapro] 20 mg PO HS 06/19/17 [History] Folic Acid 1 mg [Folate 1 mg] 1 mg PO DAILY 06/19/17 [History] Lactulose 20 gm PO QID 06/19/17 [History] Levothyroxine Sodium 75 Mcg [Synthroid 75 Mcg] 75 mcg PO QAM 06/19/17 [ History] Multivitamin [Multivitamins] 1 each PO QAM 06/19/17 [History] Oxycodone HCl 5 mg Ir [Oxy-IR 5 MG] 10 mg PO TID 06/19/17 [History] PANTOPRAZOLE 40 mg Tablet [Protonix 40MG Tablet] 40 mg PO QAM 06/19/17 [ History] Thiamine HCl 100 mg [Vitamin B-1 100 mg] 100 mg PO QAM 06/19/17 [History] Acetaminophen [Tylenol] 650 mg PO Q4HPRN PRN 07/24/17 [History] Amiloride HCl 5 mg PO BID 07/24/17 [History] Ascorbic Acid/Ascorbate Sodium [Vitamin C 250 mg Tablet Chew] 750 mg PO BID [History] Aspirin/Acetaminophen/Caffeine [Excedrin Migraine Caplet] 1 tab PO BIDPRN PRN [History] Bumetanide [Bumex] 4 mg PO BID 07/24/17 [History] Calcium Carbonate/Vitamin D3 [Calcium 600 + Vit D Tablet] 1 tab PO BID 07/24/17 [History] Clonazepam 0.5 mg [Klonopin 0.5 MG] 0.25 mg PO TID 07/24/17 [History] Dextran 70/Hypromellose [Artificial Tears] 1 drop OP TID 07/24/17 [History] Levetiracetam 250 MG [Keppra 250 MG] 250 mg PO BID 07/24/17 [History] Neomycin Sulfate 1 tab PO TID 07/24/17 [History] Pregabalin 50 mg [Lyrica 50MG] 50 mg PO BID 07/24/17 [History] Insulin Aspart [NovoLOG Insulin] 1 unit SQ AC 07/25/17 [History] Magnesium Hydroxide 30 ml [Milk of Magnesia 30 ml] 30 ml PO DAILY PRN PRN 07/25/17 [History] Sodium Phosphate,[place]-Dibasic [Fleet Enema] 1 enema R DAILY PRN PRN 07/25/17 [ History] Hydrocortisone 1% Cream [Cortisone 1% Cream] 1 gm TOP BID 08/28/17 [ History] Tolterodine Tartrate 2 mg [Detrol 2 MG] 4 mg PO DAILY 08/28/17 [History] Bumetanide [Bumex] 09/10/17 [History] Metolazone 5 mg PO 09/10/17 [History] Hx Tetanus, Diphtheria Vaccination/Date Given: No Hx Influenza Vaccination/Date Given: Yes Hx Pneumococcal Vaccination/Date Given: Yes - Review of Systems Constitutional: No Fever Abdominal/Gastrointestinal: No Vomiting All Other Systems: Unable due to condition - Past Medical History Pertinent Past Medical History: Yes Neurological History: Dementia, Peripheral Neuropathy, Seizures, TIA ENT History: No Pertinent History Cardiac History: High Cholesterol, Hypertension Respiratory History: Asthma, Bronchitis, COPD, Sleep Apnea Endocrine Medical History: Diabetes Type II, Hypothyroidism Musculoskeletal History: Arthritis GI Medical History: Cirrhosis, Ulcer History: Other Psycho-Social History: Depression Male Reproductive Disorders: No Pertinent History Other Medical History: URINARY INCONTINENCE/retention - Past Surgical History Past Surgical History: Yes Neuro Surgical History: No Pertinent History Cardiac: No Pertinent History Respiratory: No Pertinent History Gastrointestinal: No Pertinent History Genitourinary: No Pertinent History Musculoskeletal: Orthopedic Surgery Male Surgical History: Other Other Surgical History: LATE CIRCUMCISION - tip of FINGER AMPUTATION. SUPRAPUBIC CATHETER PLACED 07/11/14 - Social History Smoking Status: Current every day smoker How long have you smoked: 30 Exposure to second hand smoke: No Alcohol Use: None Drug Use: none Patient Lives Alone: No Significant Family History: heart disease, diabetes - Nursing Vital Signs Nursing Vital Signs: Initial Vital Signs O2 Sat by Pulse Oximetry 100 09/10/17 12:53 Pain Scale Pain Intensity 0 - Physical Exam General Appearance: other (decreased response, smiled at RT but does not follow commands. No response to narcan 2mg.) Eye Exam: other (Equal pupils that are large and reactive) Ears, Nose, Throat Exam: dry mucous membranes Respiratory Exam: diminished breath sounds Cardiovascular Exam: regular rate/rhythm Gastrointestinal/Abdomen Exam: soft, other (suprapubic cath), No tenderness ( full) Extremity Exam: pedal edema Skin Exam: warm, dry, No rash SpO2 Interpretation: normal SpO2: 100 Oxygen Delivery: BiPap - Course Nursing assessment & vital signs reviewed: Yes EKG Interpreted by Me: RATE (89), Sinus Rhythm, NORMAL AXIS, NORMAL INTERVALS ( QTc 417), NORMAL QRS, NORMAL ST-T Ordered Tests: Active Orders 24 hr Category Date Time Status Manager Aviation STAT Care 09/10/17 12:50 Active EKG-ER Only STAT Care 09/10/17 12:50 Active IV Insertion STAT Care 09/10/17 12:50 Active Pulse Oximetry (ED) STAT Care 09/10/17 12:50 Active CHEST 1 VIEW (PORTABLE) Stat Exams 09/10/17 12:50 Completed HEAD WITHOUT CONTRAST [CT] Stat Exams 09/10/17 12:54 Completed ABG [ARTERIAL BLOOD GASES] Routine Lab 09/10/17 14:29 Completed ARTERIAL BLOOD GASES Stat Lab 09/10/17 12:51 Ordered BLOOD CULTURE Stat Lab 09/10/17 12:50 Received CBC W DIFF Stat Lab 09/10/17 12:50 Completed CMP Stat Lab 09/10/17 12:50 Completed CULTURE,URINE Stat Lab 09/10/17 12:50 Ordered Glucose,Critical Care Stat Lab 09/10/17 12:51 Ordered Lactic Acid Stat Lab 09/10/17 12:50 Ordered PROTIME WITH INR Stat Lab 09/10/17 12:50 Completed PTT Stat Lab 09/10/17 12:50 Completed TROPONIN Q3H Lab 09/10/17 12:50 Completed TROPONIN Q3H Lab 09/10/17 16:00 Ordered TROPONIN Q3H Lab 09/10/17 19:00 Ordered TROPONIN Q3H Lab 09/10/17 22:00 Ordered TROPONIN Q3H Lab 09/11/17 01:00 Ordered UA Stat Lab 09/10/17 12:50 Ordered BiPap/CPAP Assessment STAT RT 09/10/17 12:51 Active Medication Summary Generic Name Dose Route Start Last Admin Trade Name Freq PRN Reason Stop Dose Admin Sodium Chloride 1,000 mls @ 100 mls/hr 09/10/17 13:00 09/10/17 12:54 Sodium Chloride 0.9% 1000 Ml IV 10/10/17 12:59 100 mls/hr .Q10H CARMEN Administration Discontinued Medications Generic Name Dose Route Start Last Admin Trade Name Freq PRN Reason Stop Dose Admin Naloxone HCl 2 mg 09/10/17 12:51 09/10/17 12:54 Narcan 2 Mg/2 Ml IV 09/10/17 12:52 2 mg STAT ONE Administration Lab/Rad Data: Laboratory Result Diagrams 09/10/17 12:50 09/10/17 12:50 Laboratory Results 09/10/17 09/10/17 09/10/17 Range/Units 14:29 12:50 12:50 WBC (4.0-10.5) K/mm3 RBC (4.1-5.6) M/mm3 Hgb (12.5-18.0) gm/dl Hct (42-50) % MCV (78-100) fl MCH (26-32) pg MCHC (32-36) g/dl RDW (11.5-14.0) % Plt Count (150-450) K/mm3 MPV (6-9.5) fl Gran % (36.0-66.0) % Eos # (Auto) (0-0.5) Absolute Lymphs (auto) (1.0-4.6) Absolute Monos (auto) (0.0-1.3) Lymphocytes % (24.0-44.0) % Monocytes % (0.0-12.0) % Eosinophils % (0.00-5.0) % Basophils % (0.0-0.4) % Absolute Granulocytes (1.4-6.9) Basophils # (0-0.4) PT (8.83-12.87) SECONDS INR (0.8-3.0) APTT (24.1-36.1) SECONDS Puncture Site Y pCO2 47 H (35-45) mmHg pO2 294 H* (75-100) mmHg Base Excess 4.2 H (-2.0-2.0) O2 Saturation 96.6 (94-100) g/dF ABG pH 7.41 (7.35-7.45) ABG HCO3 29.8 H* (22-28) ABG O2 Sat (Measured) 100.1 H (95-100) % ABG O2 Content 60 % vol Matt Test RR A-a Gradient 75 a/A Ratio 0.80 Hemoglobin 13.9 Carboxyhemoglobin 1.9 (0.0-6.9) % THgb Methemoglobin 1.6 H (1.4-1.5) % Temperature 37.0 C POC O2 Flow Rate 60 % Vent Mode Not Reportable Inspiratory BiPAP 14 Expiratory BiPAP 6 Sodium (137-145) mmol/L Potassium 5.1 (3.5-5.1) mmol/L Chloride (98-107) mmol/L Carbon Dioxide (22-30) mmol/L Anion Gap (5-15) MEQ/L BUN (9-20) mg/dL Creatinine (0.66-1.25) mg/dL Estimated GFR ML/MIN Glucose (74-106) mg/dL Calcium (8.4-10.2) mg/dL Total Bilirubin (0.2-1.3) mg/dL AST (17-59) U/L ALT (0-50) U/L Alkaline Phosphatase (38-126) U/L Ammonia 121 H (9-30) umol/L Troponin I < 0.012 (0.000-0.034) ng/mL Serum Total Protein (6.3-8.2) g/dL Albumin (3.5-5.0) g/dL Slides for Path Review 09/10/17 09/10/17 09/10/17 Range/Units 12:50 12:50 12:50 WBC 5.6 (4.0-10.5) K/mm3 RBC 4.90 (4.1-5.6) M/mm3 Hgb 15.5 (12.5-18.0) gm/dl Hct 44.7 (42-50) % MCV 91.2 (78-100) fl MCH 31.6 (26-32) pg MCHC 34.7 (32-36) g/dl RDW 14.5 H (11.5-14.0) % Plt Count 81 L (150-450) K/mm3 MPV 11.6 H (6-9.5) fl Gran % 59.6 (36.0-66.0) % Eos # (Auto) 0.26 (0-0.5) Absolute Lymphs (auto) 1.28 (1.0-4.6) Absolute Monos (auto) 0.68 (0.0-1.3) Lymphocytes % 23.0 L (24.0-44.0) % Monocytes % 12.2 H (0.0-12.0) % Eosinophils % 4.7 (0.00-5.0) % Basophils % 0.5 (0.0-0.4) % Absolute Granulocytes 3.32 (1.4-6.9) Basophils # 0.03 (0-0.4) PT 12.5 (8.83-12.87) SECONDS INR 1.12 (0.8-3.0) APTT 36.0 (24.1-36.1) SECONDS Puncture Site pCO2 (35-45) mmHg pO2 (75-100) mmHg Base Excess (-2.0-2.0) O2 Saturation (94-100) g/dF ABG pH (7.35-7.45) ABG HCO3 (22-28) ABG O2 Sat (Measured) (95-100) % ABG O2 Content % vol Matt Test A-a Gradient a/A Ratio Hemoglobin Carboxyhemoglobin (0.0-6.9) % THgb Methemoglobin (1.4-1.5) % Temperature C POC O2 Flow Rate % Vent Mode Inspiratory BiPAP Expiratory BiPAP Sodium 139 (137-145) mmol/L Potassium 5.5 H (3.5-5.1) mmol/L Chloride 104 (98-107) mmol/L Carbon Dioxide 27 (22-30) mmol/L Anion Gap 13.3 (5-15) MEQ/L BUN 19 (9-20) mg/dL Creatinine 1.27 H (0.66-1.25) mg/dL Estimated GFR > 60.0 ML/MIN Glucose 215 H (74-106) mg/dL Calcium 9.7 (8.4-10.2) mg/dL Total Bilirubin 1.40 H (0.2-1.3) mg/dL AST 95 H (17-59) U/L ALT 78 H (0-50) U/L Alkaline Phosphatase 126 (38-126) U/L Ammonia (9-30) umol/L Troponin I (0.000-0.034) ng/mL Serum Total Protein 8.0 (6.3-8.2) g/dL Albumin 3.7 (3.5-5.0) g/dL Slides for Path Review YES - Progress Progress Note: 09/10/17 13:34 cxr: Portable chest remains clear. Heart is not enlarged for AP portable technique with stable left arm PICC line. No new/acute findings. CT head: Minimal motion artifact. Again no acute intracranial abnormalities. 09/10/17 14:55 Ammonia elevated. He is on bipap. He woke up with repeat ABG and follows simple commands at all 4 ext, Speaking to RT. Called Dr Archuleta. Will admit to IP ICU, EEG, lactulose. Counseled pt/family regarding: lab results, diagnosis, need for follow-up, rad results - Departure Time of Disposition: 14:56 Departure Disposition: In-patient Admission (ICU) Clinical Impression: Altered mental status, Hx of seizure disorder, Diabetes Condition: Serious Critical Care Time: Yes Critical Care Time(excluding separately billable procedures): 30-74 minutes Referrals: DANNY ARCHULETA MD [Primary Care Provider] -
[2017-09-10 13:18] LABS: Slide Review 1 YES
--- NOTE | 2017-09-10 13:27 | XRAY ---
Indication: Respiratory distress. Comparison: September 02, 2017. Portable chest remains clear. Heart is not enlarged for AP portable technique with stable left arm PICC line. No new/acute findings.
--- NOTE | 2017-09-10 13:30 | XRAY ---
Indication: Unresponsive. Multiple contiguous axial images obtained through the head without contrast. Comparison: February 11, 2017. Images through base of the brain slightly degraded by motion artifact. Stable age-appropriate global atrophy. No acute intracranial hemorrhage, abnormal extra-axial fluid collection, or mass effect. Fourth ventricle is midline without hydrocephalus. Mora-white matter differentiation preserved. Visualized paranasal sinuses and mastoid air cells are clear. Impression: Minimal motion artifact. Again no acute intracranial abnormalities. CT DI 60.68
[2017-09-10 14:31] LABS: A-aADO2 75; ABG HEMOGLOBIN 13.9; ABG POTASSIUM 5.1 (3.5-5.1); ARTERIAL BLD GAS O2 SATURATION 100.1 % (95-100); ARTERIAL BLOOD GAS BASE EXCESS 4.2 (-2.0-2.0); ARTERIAL BLOOD GAS FIO2 60 %; ARTERIAL BLOOD GAS PCO2 47 mmHg (35-45); ARTERIAL BLOOD GAS PO2 294 mmHg (75-100); ARTERIAL BLOOD GAS pH 7.41 (7.35-7.45); CARBOXYHEMOGLOBIN 1.9 % THgb (0.0-6.9); HCO3- 29.8 (22-28); HGB O2 SAT 96.6 g/dF (94-100); Methhemoglobin 1.6 % (1.4-1.5)
[2017-09-10 14:32] LABS: ABG SITE Y; ALLEN TEST OK? RR; O2 CONTENT 60 % vol
[2017-09-10 17:16] LABS: A-aADO2 458; ABG POTASSIUM 5.4 (3.5-5.1); ARTERIAL BLD GAS O2 SATURATION 99.9 % (95-100); ARTERIAL BLOOD GAS BASE EXCESS 1.7 (-2.0-2.0); ARTERIAL BLOOD GAS FIO2 100 %; ARTERIAL BLOOD GAS PCO2 50 mmHg (35-45); ARTERIAL BLOOD GAS PO2 193 mmHg (75-100); ARTERIAL BLOOD GAS pH 7.36 (7.35-7.45); CARBOXYHEMOGLOBIN 1.9 % THgb (0.0-6.9); HCO3- 28.2 (22-28); HGB O2 SAT 96.8 g/dF (94-100); Methhemoglobin 1.2 % (1.4-1.5)
[2017-09-10 17:17] LABS: ABG SITE RIGHT RADIAL; ALLEN TEST OK? YES
[2017-09-10] MEDS: LACTULOSE 20 GM/30ML UD CUP PO SCH (18:00)
[2017-09-10 18:41] LABS: Appearance CLEAR (CLEAR); Bilirubin NEGATIVE (NEGATIVE); Blood 250 Ery/ul (0-5); Glucose 1000 mg/dL (NEGATIVE); Ketones NEGATIVE (NEGATIVE); Leukocyte Esterase 1+ (NEGATIVE); Nitrite NEGATIVE (NEGATIVE); Protein,Urine Dip TRACE (Negative); Specific Gravity 1.005 (1.005-1.025); Urobilinogen NORMAL mg/dL (0-1)
[2017-09-10 18:51] LABS: Bacteria FEW /HPF (NEGATIVE); Epithelial Cells RARE /HPF (FEW); WBC 0-2 /HPF (0-5)
[2017-09-10] MEDS ORDERED: Lexapro 10 MG PO SCH (22:00)
[2017-09-10] MEDS ORDERED: Lantus Insulin SQ SCH (22:00)
[2017-09-10] MEDS ORDERED: Abilify 10 MG PO SCH (22:30)
[2017-09-10] MEDS ORDERED: Norco 10/325 MG Tablet PO PRN (22:37)
[2017-09-10] MEDS: Sodium Chloride 0.9% 1000 ML 1,000 ML IV SCH (23:56)
[2017-09-10] MEDS: Keppra 250 MG PO SCH (23:57)
[2017-09-10] MEDS: BUMEX 1 MG IV SCH (23:58)
[2017-09-10] MEDS: Klonopin 0.5 MG PO SCH (23:59)
[2017-09-11] MEDS: NovoLOG Insulin SQ PRN ×3 (02:29→11:04)
[2017-09-11] MEDS ORDERED: PROVENTIL 2.5 MG/3 ML NEB IH ONE (06:38)
[2017-09-11] MEDS: DUONEB 0.5-3 MG/3 ml Neb IH SCH ×3 (07:10→19:22)
[2017-09-11] MEDS: Advair Hfa 115/21 Common canister IH SCH ×2 (07:13→19:31)
[2017-09-11] MEDS ORDERED: ACETAMINOPHEN PO PRN (07:32)
[2017-09-11] MEDS ORDERED: MILK OF MAGNESIA 30 ML PO PRN (07:32)
[2017-09-11] MEDS ORDERED: TYLENOL 325 MG PO PRN (07:32)
[2017-09-11] MEDS ORDERED: CAFFEINE PO PRN (07:32)
[2017-09-11] MEDS ORDERED: ASPIRIN PO PRN (07:32)
[2017-09-11] MEDS ORDERED: Klor Con 10 MEQ PO SCH ×2 (07:45→17:00)
[2017-09-11] MEDS ORDERED: NON-FORMULARY ITEM (Metolazone [Metolazone] 5 MG) PO SCH (07:45)
--- NOTE | 2017-09-11 08:03 | PCM.SSS ---
History of Present Illness - Chief Complaint Chief Complaint: altered mental status; hepatic encephalopathy; DM History of Present Illness: Mr.COX CHEUNG is a 56 year old male [facility] [place] [facility] who was altered yesterday, he was recently treated for a complicated UTI with chronic suprapubic cath. He is alert and normal today, has no complaints. - Review of Systems Constitutional: No Fever, No Chills Respiratory: No Cough, No Short Of Breath Cardiac: No Chest Pain, No Edema, No Syncope Abdominal/Gastrointestinal: No Abdominal Pain, No Nausea, No Vomiting, No Diarrhea Neurological: No Dizziness, No Focal Weakness, No Sensory Changes Psychological: No Symptoms All Other Systems: Reviewed and Negative Medications & Allergies Home Medications: Home Medication List Aripiprazole [Abilify] 5 mg PO HS 06/19/17 [History Confirmed 09/10/17] Escitalopram Oxalate [Lexapro] 20 mg PO HS 06/19/17 [History Confirmed 09/10/17] Folic Acid 1 mg [Folate 1 mg] 1 mg PO DAILY 06/19/17 [History Confirmed ] Lactulose 20 gm PO 5XD 06/19/17 [History Confirmed 09/10/17] Levothyroxine Sodium 75 Mcg [Synthroid 75 Mcg] 75 mcg PO QAM 06/19/17 [ History Confirmed 09/10/17] Multivitamin [Multivitamins] 1 each PO QAM 06/19/17 [History Confirmed 09/10/17] Oxycodone HCl 5 mg Ir [Oxy-IR 5 MG] 10 mg PO TID 06/19/17 [History Confirmed 09/10/17] PANTOPRAZOLE 40 mg Tablet [Protonix 40MG Tablet] 40 mg PO QAM 06/19/17 [ History Confirmed 09/10/17] Thiamine HCl 100 mg [Vitamin B-1 100 mg] 100 mg PO QAM 06/19/17 [History Confirmed 09/10/17] Acetaminophen [Tylenol] 650 mg PO Q4HPRN PRN 07/24/17 [History Confirmed ] Amiloride HCl 5 mg PO BID 07/24/17 [History Confirmed 09/10/17] Ascorbic Acid/Ascorbate Sodium [Vitamin C 250 mg Tablet Chew] 750 mg PO BID [History Confirmed 09/10/17] Aspirin/Acetaminophen/Caffeine [Excedrin Migraine Caplet] 1 tab PO BIDPRN PRN [History Confirmed 09/10/17] Bumetanide [Bumex] 4 mg PO BID 07/24/17 [History Confirmed 09/10/17] Calcium Carbonate/Vitamin D3 [Calcium 600 + Vit D Tablet] 1 tab PO BID 07/24/17 [History Confirmed 09/10/17] Clonazepam 0.5 mg [Klonopin 0.5 MG] 0.25 mg PO TID 07/24/17 [History Confirmed 09/10/17] Dextran 70/Hypromellose [Artificial Tears] 1 drop OP TID 07/24/17 [History Confirmed 09/10/17] Levetiracetam 250 MG [Keppra 250 MG] 250 mg PO BID 07/24/17 [History Confirmed 09/10/17] Neomycin Sulfate 500 mg PO TID 07/24/17 [History Confirmed 09/10/17] Pregabalin 50 mg [Lyrica 50MG] 50 mg PO BID 07/24/17 [History Confirmed ] Insulin Aspart [NovoLOG Insulin] 0 unit SQ AC 07/25/17 [History Confirmed ] Magnesium Hydroxide 30 ml [Milk of Magnesia 30 ml] 30 ml PO DAILY PRN PRN 07/25/17 [History Confirmed 09/10/17] Sodium Phosphate,[place]-Dibasic [Fleet Enema] 1 enema R DAILY PRN PRN 07/25/17 [ History Confirmed 09/10/17] Hydrocodone/APAP 10/325 mg [[place] 10/325 MG Tablet] 1 tab PO Q4H PRN PRN tablet MDD 6 tabs 07/26/17 [Rx Confirmed 09/10/17] Insulin Aspart [NovoLOG Insulin] 20 unit SQ AC unit 07/26/17 [Rx Confirmed 09/10/17] Insulin Detemir [Levemir] 30 unit SQ BID #10 ml 07/26/17 [Rx Confirmed 09/10/17] Tolterodine Tartrate 2 mg [Detrol 2 MG] 4 mg PO DAILY 08/28/17 [History Confirmed 09/10/17] Heparin Flush 500 units/5 ml [Heparin Lock Flush 100 Units/ml 5ml Syringe] 500 units IV UD PRN 09/10/17 [History Confirmed 09/10/17] Metolazone 5 mg PO UD 09/10/17 [History Confirmed 09/10/17] Modafinil 100 mg [Provigil 100MG Tablet] 200 mg PO QAM 09/10/17 [History Confirmed 09/10/17] Potassium Chloride 10 Meq Tab* [Klor Con 10 MEQ] 20 meq PO UD 09/10/17 [ History Confirmed 09/10/17] Allergies/Adverse Reactions: Allergies Allergy/AdvReac Type Severity Reaction Status Date / Time metformin Allergy Mild Diarrhea Verified 09/10/17 12:44 phenytoin sodium Allergy Mild Verified 09/10/17 12:44 [From Dilantin] phenytoin sodium extended Allergy Mild Verified 07/15/17 18:38 [From Dilantin] carbamazepine [From Tegretol] Allergy Unknown Verified 09/10/17 12:44 - Past Medical History Past Medical History: Yes Neurological History: Dementia, Peripheral Neuropathy, Seizures, TIA ENT History: No Pertinent History Cardiac History: High Cholesterol, Hypertension Respiratory History: Asthma, Bronchitis, COPD, Sleep Apnea Endocrine Medical History: Diabetes Type II, Hypothyroidism Musculoskelatal History: Arthritis GI Medical History: Cirrhosis, Ulcer History: Other Pyscho-Social History: Depression Male Reproductive Disorders: No Pertinent History Comment: URINARY INCONTINENCE/retention - Past Surgical History Past Surgical History: Yes Neuro Surgical History: No Pertinent History Cardiac History: No Pertinent History Respiratory Surgery: No Pertinent History GI Surgical History: No Pertinent History Genitourinary Surgical Hx: No Pertinent History Musculskeletal Surgical Hx: Orthopedic Surgery Male Surgical History: Other Other Surgical History: LATE CIRCUMCISION - tip of FINGER AMPUTATION. SUPRAPUBIC CATHETER PLACED 07/11/14 - Social History Smoking Status: Former smoker How long have you smoked: 30 Exposure to second hand smoke: No Alcohol: None Drug Use: none Significant Family History: heart disease, diabetes - Physical Exam Vital Signs: Vital Signs - 24 hr Temp Pulse Resp BP Pulse Ox 09/11/17 07:15 65 22 97 09/11/17 06:00 97.6 F 71 10 L 119/66 97 09/11/17 04:37 66 10 L 96 09/11/17 04:00 67 12 115/66 98 09/11/17 02:00 97.8 F 69 12 118/63 97 09/11/17 00:01 71 09/11/17 00:00 97.3 F 71 13 112/64 96 09/10/17 21:24 98.7 F 77 18 97/60 98 09/10/17 17:30 98.2 F 85 15 132/73 96 09/10/17 15:39 78 22 145/65 97 09/10/17 14:56 100 09/10/17 13:55 97.9 F 81 09/10/17 12:55 88 10 L 135/88 100 09/10/17 12:53 100 09/10/17 12:40 96 H 21 96 Oxygen-Last 24 hours O2 Percentage 3 Liters = 32% O2 Percentage 2 Liters = 28% Oxygen Flowrate (L/min)-RT 3 Oxygen Flowrate (L/min)-RT 3 Oxygen Flowrate (L/min)-RT 2 General Appearance: no apparent distress, alert, obese Neurologic Exam: alert, oriented x 3 Eye Exam: PERRL/EOMI, eyes nml inspection Respiratory Exam: normal breath sounds, lungs clear, No respiratory distress Cardiovascular Exam: regular rate/rhythm, normal heart sounds, normal peripheral pulses Gastrointestinal/Abdomen Exam: soft, normal bowel sounds, No tenderness, No mass Extremity Exam: normal inspection, normal range of motion, pelvis stable Skin Exam: normal color, warm, dry, No rash Results - Labs Lab/Micro Results: Accuchecks Date 09/10/17 Time 22:00 Accucheck Value: 234 Accucheck Value: 238 Accucheck Value: 136 Accucheck Value: 128 Lab Results-Last 24 Hours 09/10/17 Range/Units 18:30 Ur Collection Type CLEAN CATCH Urine Color YELLOW (YELLOW) Urine Appearance CLEAR (CLEAR) Urine pH 7.0 (5-6) Ur Specific [place] 1.005 (1.005-1.025) Urine Protein TRACE (Negative) Urine Ketones NEGATIVE (NEGATIVE) Urine Blood 250 (0-5) Collin/ul Urine Nitrite NEGATIVE (NEGATIVE) Urine Bilirubin NEGATIVE (NEGATIVE) Urine Urobilinogen NORMAL (0-1) mg/dL Ur Leukocyte Esterase 1+ (NEGATIVE) Urine Microscopic RBC 5-10 (0-2) /HPF Urine Microscopic WBC 0-2 (0-5) /HPF Ur Epithelial Cells RARE (FEW) /HPF Urine Bacteria FEW (NEGATIVE) /HPF Urine Glucose 1000 (NEGATIVE) mg/dL Specimen Received 09/10/17 1830 Accuchecks Date 09/10/17 Time 22:00 Accucheck Value: 234 Accucheck Value: 238 Accucheck Value: 136 Accucheck Value: 128 - Other Procedures and Tests Respiratory Therapy 09/11/17 04:35 BiPap/CPAP Assessment ROUTINE Oxygen NASAL CANNULA 2 lpm 09/11/17 07:00 Respiratory MDI BID Respiratory Nebulizer UD Assessment/Plan (1) Hepatic encephalopathy Current Visit: Yes Status: Acute Assessment & Plan: repeat ammonia but AMS has resolved today, if labs are reasonable can go back to [place] today Code(s): K72.90 - HEPATIC FAILURE, UNSPECIFIED WITHOUT COMA (2) Altered mental status Current Visit: Yes Status: Acute Code(s): R41.82 - ALTERED MENTAL STATUS, UNSPECIFIED (3) Diabetes Current Visit: Yes Status: Chronic Qualifiers: Code(s): E11.9 - TYPE 2 DIABETES MELLITUS WITHOUT COMPLICATIONS (4) COPD (chronic obstructive pulmonary disease) Current Visit: No Status: Chronic Qualifiers: COPD type: chronic bronchitis [facility] Summary - Vitals & Intake/Output Vital Signs: Vital Signs Temperature 97.6 F 09/11/17 06:00 Pulse Rate 65 09/11/17 07:15 Respiratory Rate 22 09/11/17 07:15 Blood Pressure 119/66 09/11/17 06:00 O2 Sat by Pulse Oximetry 97 09/11/17 07:15 Oxygen-Last Documented O2 Percentage 3 Liters = 32% Intake & Output: Intake & Output 09/08/17 09/09/17 09/10/17 09/11/17 11:59 11:59 11:59 11:59 Intake Total 2389 Output Total 2400 Balance -11 Weight 133.9 kg - Lab Result Diagrams: 09/10/17 12:50 09/10/17 12:50 Lab Results-Last 24 Hrs: Accuchecks Date 09/10/17 Time 22:00 Accucheck Value: 234 Accucheck Value: 238 Accucheck Value: 136 Accucheck Value: 128 Lab Results-Last 24 Hours 09/10/17 Range/Units 18:30 Ur Collection Type CLEAN CATCH Urine Color YELLOW (YELLOW) Urine Appearance CLEAR (CLEAR) Urine pH 7.0 (5-6) Ur Specific [place] 1.005 (1.005-1.025) Urine Protein TRACE (Negative) Urine Ketones NEGATIVE (NEGATIVE) Urine Blood 250 (0-5) Collin/ul Urine Nitrite NEGATIVE (NEGATIVE) Urine Bilirubin NEGATIVE (NEGATIVE) Urine Urobilinogen NORMAL (0-1) mg/dL Ur Leukocyte Esterase 1+ (NEGATIVE) Urine Microscopic RBC 5-10 (0-2) /HPF Urine Microscopic WBC 0-2 (0-5) /HPF Ur Epithelial Cells RARE (FEW) /HPF Urine Bacteria FEW (NEGATIVE) /HPF Urine Glucose 1000 (NEGATIVE) mg/dL Specimen Received 09/10/17 1830 Micro Results-Entire Visit: Accuchecks Date 09/10/17 Time 22:00 Accucheck Value: 234 Accucheck Value: 238 Accucheck Value: 136 Accucheck Value: 128 - Procedures and Test Procedures and Tests throughout Hospitalization: Therapy Orders & Screens 09/10/17 18:50 OT Screen per Nursing Assess ONCE Comment: Protocol Order Physician Instructions: Greater than 3 points order OT Admission Screening Reason For Exam: Triggered on Admission Diagnosis: altered mental status; hepatic encephalopathy; DM Open Wound/Cellutlitis/Pressure Ulcers: No Acute Fx/ORIF/Change in wt bearing status: No Severe MUSCULOSKELETAL pain: No ADL Dysfunction: Yes Acute CVA w/Hemiparesis/Hemiplegia: No Decreased Functional Mobility/Strength: Yes Sprain/Strain: No Acute Post-op Mobility Dysfunction: No Total Points: 4 PT Screen per Nursing Assess ONCE Comment: Protocol Order Physician Instructions: Greater than 3 points order PT Admission Screenin Reason For Exam: Triggered on Admission Diagnosis: altered mental status; hepatic encephalopathy; DM Open Wound/Cellutlitis/Pressure Ulcers: No Acute Fx/ORIF/Change in wt bearing status: No Severe MUSCULOSKELETAL pain: No ADL Dysfunction: Yes Acute CVA w/Hemiparesis/Hemiplegia: No Decreased Functional Mobility/Strength: Yes Sprain/Strain: No Acute Post-op Mobility Dysfunction: No Total Points: 4 RT Screen per Nursing Assess Comment: Protocol Order Physician Instructions: Greater than 3 points order RT Admission Screen Reason For Exam: Triggered on Admission Diagnosis: altered mental status; hepatic encephalopathy; DM Diagnosis: altered mental status; hepatic encephalopathy; DM Pneumonia: No Home O2: Yes Asthma: Yes CHF: No Home CPAP/BIPAP: Yes Home Nebs/MDI: Yes Total Points: 09/11/17 04:35 BiPap/CPAP Assessment ROUTINE Comment: cpap +14 with 2l oxygen Diagnosis: altered mental status; hepatic encephalopathy; DM Oxygen NASAL CANNULA 2 lpm Comment: Diagnosis: altered mental status; hepatic encephalopathy; DM 09/11/17 07:00 Respiratory MDI BID Comment: advair 115/21 Diagnosis: altered mental status; hepatic encephalopathy; DM Respiratory Nebulizer UD Comment: duoneb tid Diagnosis: altered mental status; hepatic encephalopathy; DM - Discharge Disposition: Skilled Care @ [facility] Condition: Stable Prescriptions: No Action Lactulose 20 gm PO 5XD Oxycodone HCl 5 mg Ir [Oxy-IR 5 MG] 10 mg PO TID Thiamine HCl 100 mg [Vitamin B-1 100 mg] 100 mg PO QAM Levothyroxine Sodium 75 Mcg [Synthroid 75 Mcg] 75 mcg PO QAM PANTOPRAZOLE 40 mg Tablet [Protonix 40MG Tablet] 40 mg PO QAM Multivitamin [Multivitamins] 1 each PO QAM Escitalopram Oxalate [Lexapro] 20 mg PO HS Folic Acid 1 mg [Folate 1 mg] 1 mg PO DAILY Aripiprazole [Abilify] 5 mg PO HS Acetaminophen [Tylenol] 650 mg PO Q4HPRN PRN PRN Reason: Pain Aspirin/Acetaminophen/Caffeine [Excedrin Migraine Caplet] 1 tab PO BIDPRN PRN PRN Reason: Headache Neomycin Sulfate 500 mg PO TID Dextran 70/Hypromellose [Artificial Tears] 1 drop OP TID Ascorbic Acid/Ascorbate Sodium [Vitamin C 250 mg Tablet Chew] 750 mg PO BID Pregabalin 50 mg [Lyrica 50MG] 50 mg PO BID Levetiracetam 250 MG [Keppra 250 MG] 250 mg PO BID Clonazepam 0.5 mg [Klonopin 0.5 MG] 0.25 mg PO TID Calcium Carbonate/Vitamin D3 [Calcium 600 + Vit D Tablet] 1 tab PO BID Bumetanide [Bumex] 4 mg PO BID Amiloride HCl 5 mg PO BID Insulin Aspart [NovoLOG Insulin] 0 unit SQ AC Magnesium Hydroxide 30 ml [Milk of Magnesia 30 ml] 30 ml PO DAILY PRN PRN PRN Reason: Constipation Sodium Phosphate,[place]-Dibasic [Fleet Enema] 1 enema R DAILY PRN PRN PRN Reason: Constipation Hydrocodone/APAP 10/325 mg [[place] 10/325 MG Tablet] 1 tab PO Q4H PRN PRN tablet MDD 6 tabs PRN Reason: Pain Insulin Aspart [NovoLOG Insulin] 20 unit SQ AC unit Insulin Detemir [Levemir] 30 unit SQ BID #10 ml Tolterodine Tartrate 2 mg [Detrol 2 MG] 4 mg PO DAILY Metolazone 5 mg PO UD Potassium Chloride 10 Meq Tab* [Klor Con 10 MEQ] 20 meq PO UD Modafinil 100 mg [Provigil 100MG Tablet] 200 mg PO QAM Heparin Flush 500 units/5 ml [Heparin Lock Flush 100 Units/ml 5ml Syringe ] 500 units IV UD PRN PRN Reason: Picc flush Follow up with: DANNY ARCHULETA MD [Primary Care Provider] - 1 Week
[2017-09-11] MEDS: LACTULOSE 20 GM/30ML UD CUP PO SCH ×4 (08:07→15:25)
[2017-09-11 08:44] LABS: ALBUMIN 2.7 g/dL (3.5-5.0); ALKALINE PHOSPHATASE 97 U/L (38-126); ANION GAP 10.2 MEQ/L (5-15); BLOOD UREA NITROGEN 18 mg/dL (9-20); CHLORIDE 104 mmol/L (98-107); Calcium 8.3 mg/dL (8.4-10.2); Carbon Dioxide 28 mmol/L (22-30); Creatinine 1 1.21 mg/dL (0.66-1.25); Glucose 295 mg/dL (74-106); Potassium 4.4 mmol/L (3.5-5.1); SGOT/AST 82 U/L (17-59); SGPT/ALT 61 U/L (0-50); SODIUM 137 mmol/L (137-145); Total Protein 5.8 g/dL (6.3-8.2)
[2017-09-11] MEDS ORDERED: CALCIUM CARBONATE PO SCH (10:00)
[2017-09-11] MEDS ORDERED: Ditropan XL 5 MG PO SCH (10:00)
[2017-09-11] MEDS ORDERED: VITAMIN D3 PO SCH (10:00)
[2017-09-11] MEDS ORDERED: Provigil 100MG Tablet PO SCH (10:00)
[2017-09-11] MEDS ORDERED: FOLATE 1 MG PO SCH (10:00)
[2017-09-11] MEDS ORDERED: TOLTERODINE TARTRATE PO SCH (10:00)
[2017-09-11] MEDS ORDERED: [UNRECOGNIZED DRUG - OTHER] PO SCH (10:00)
[2017-09-11] MEDS ORDERED: Vitamin C 500 MG PO SCH (10:00)
[2017-09-11] MEDS ORDERED: Protonix 40MG Tablet PO SCH (10:00)
[2017-09-11] MEDS ORDERED: Calcium 500MG W/Vit D Tablet PO SCH (10:00)
[2017-09-11] MEDS ORDERED: THERAGRAN MULTIVITAMIN PO SCH (10:00)
[2017-09-11] MEDS ORDERED: VITAMIN B-1 100 MG PO SCH (10:00)
[2017-09-11] MEDS ORDERED: ASCORBATE SODIUM PO SCH (10:00)
[2017-09-11] MEDS ORDERED: NON-FORMULARY ITEM (Dextran 70/Hypromellose [Artificial Tears] 1 DROP) OP SCH (10:00)
[2017-09-11] MEDS ORDERED: NON-FORMULARY ITEM (Multivitamin [Multivitamins] 1 EACH) PO SCH (10:00)
[2017-09-11] MEDS ORDERED: ASCORBIC ACID PO SCH (10:00)
[2017-09-11] MEDS ORDERED: SYNTHROID 75 MCG PO SCH (10:00)
[2017-09-11] MEDS ORDERED: Zaroxolyn 2.5 MG PO SCH (10:00)
[2017-09-11] MEDS: Klonopin 0.5 MG PO SCH ×2 (10:39→15:21)
[2017-09-11] MEDS: Artificial Tears 15 ML OP SCH ×2 (10:39→15:21)
[2017-09-11] MEDS: BUMEX 1 MG IV SCH (10:44)
[2017-09-11] MEDS: Sodium Chloride 0.9% 1000 ML 1,000 ML IV SCH ×2 (10:46→19:32)
[2017-09-11] MEDS: MIDAMOR PO SCH ×2 (10:47)
[2017-09-11] MEDS: Lyrica 50MG PO SCH ×2 (10:47)
[2017-09-11] MEDS: NEOMYCIN SULFATE 500 MG PO SCH ×3 (10:47→15:22)
[2017-09-11] MEDS: Keppra 250 MG PO SCH (10:47)
[2017-09-11] MEDS: Oxy-IR 5 MG PO SCH ×3 (10:51→15:20)
[2017-09-11] MEDS: Klor Con 10 MEQ PO SCH ×2 (11:01→15:21)
[2017-09-11 16:06] VITALS: BP 135/67
[2017-09-11 19:25] VITALS: PULSE 83; O2SAT 97
== END 2017-09-11 19:45 | DRG 443 ==
LOC: ED 12:40 → ICU 16:30
PROVIDERS: ADMIT Family Medicine; ATTEND Family Medicine
DX: K72.90 Hepatic failure, unspecified without coma (principal); G40.909 Epilepsy, unspecified, not intractable, without status epilepticus; R41.82 Altered mental status, unspecified; Z79.4 Long term (current) use of insulin; I10 Essential (primary) hypertension; F03.90 Unspecified dementia, unspecified severity, without behavioral disturbance, psychotic disturbance, mood disturbance, and anxiety; G62.9 Polyneuropathy, unspecified; E11.9 Type 2 diabetes mellitus without complications; E03.9 Hypothyroidism, unspecified; M19.90 Unspecified osteoarthritis, unspecified site; G47.30 Sleep apnea, unspecified; F32.9 Major depressive disorder, single episode, unspecified; K74.60 Unspecified cirrhosis of liver; Z72.0 Tobacco use; Z79.899 Other long term (current) drug therapy; Z86.73 Personal history of transient ischemic attack (TIA), and cerebral infarction without residual deficits; Z99.81 Dependence on supplemental oxygen; J44.9 Chronic obstructive pulmonary disease, unspecified
CPT/HCPCS: 36000; 36415; 36600; 70450; 71045; 80053; 81000; 82140; 82375; 82803; 82947; 82962; 83605; 84134; 84484; 85025; 85610; 85730; 87040; 87086; 93005; 93041; 94002; 94640; 94660; 95812; 96360; 96374; 99285; J1642; A9270-GY

== ENCOUNTER 2017-09-25 12:46 | Emergency (ER) | payer MEDICARE ==
--- NOTE | 2017-09-25 13:14 | ERPHSYRPT ---
- History of Present Illness Time Seen by Provider: 09/25/17 12:57 Source: EMS Exam Limitations: other (altered mental status) Patient Subjective Stated Complaint: pt here for altered mental status per the NH but pt is alert and oriented and states hes back and abd hurt which is chronic. pt eat breakfast today Triage Nursing Assessment: pt alert, resp easy, wheezes, abd large and firm which is normal for him. pt has bruising to arms and abd, swelling to lower legs Physician History: Pt was transferred from snf, he is apparently more confused and lethargic than usual. He is asleep, easy to arouse, answers verbally, has chronic, mild confusion, c/o chronic back pain. He is afebrile, no sign of severe pain or SOB or distress. He appears to be comfortable. According to ER nurse, that is his usual mental status. He was admitted here 15 days ago with SOB, altered mental status. Timing/Duration: today Severity: mild Associated Symptoms: other (chronic back pain) Allergies/Adverse Reactions: metformin Allergy (Mild, Verified 09/10/17 12:44) Diarrhea phenytoin sodium [From Dilantin] Allergy (Mild, Verified 09/10/17 12:44) phenytoin sodium extended [From Dilantin] Allergy (Mild, Verified 07/15/17 18:38 ) carbamazepine [From Tegretol] Allergy (Unknown, Verified 09/10/17 12:44) Home Medications: Aripiprazole [Abilify] 5 mg PO HS 06/19/17 [History] Escitalopram Oxalate [Lexapro] 20 mg PO HS 06/19/17 [History] Folic Acid 1 mg [Folate 1 mg] 1 mg PO DAILY 06/19/17 [History] Lactulose 20 gm PO 5XD 06/19/17 [History] Levothyroxine Sodium 75 Mcg [Synthroid 75 Mcg] 75 mcg PO QAM 06/19/17 [ History] Multivitamin [Multivitamins] 1 each PO QAM 06/19/17 [History] Oxycodone HCl 5 mg Ir [Oxy-IR 5 MG] 10 mg PO TID 06/19/17 [History] PANTOPRAZOLE 40 mg Tablet [Protonix 40MG Tablet] 40 mg PO QAM 06/19/17 [ History] Thiamine HCl 100 mg [Vitamin B-1 100 mg] 100 mg PO QAM 06/19/17 [History] Acetaminophen [Tylenol] 650 mg PO Q4HPRN PRN 07/24/17 [History] Amiloride HCl 5 mg PO BID 07/24/17 [History] Ascorbic Acid/Ascorbate Sodium [Vitamin C 250 mg Tablet Chew] 750 mg PO BID [History] Aspirin/Acetaminophen/Caffeine [Excedrin Migraine Caplet] 1 tab PO BIDPRN PRN [History] Bumetanide [Bumex] 4 mg PO BID 07/24/17 [History] Calcium Carbonate/Vitamin D3 [Calcium 600 + Vit D Tablet] 1 tab PO BID 07/24/17 [History] Clonazepam 0.5 mg [Klonopin 0.5 MG] 0.25 mg PO TID 07/24/17 [History] Dextran 70/Hypromellose [Artificial Tears] 1 drop OP TID 07/24/17 [History] Levetiracetam 250 MG [Keppra 250 MG] 250 mg PO BID 07/24/17 [History] Neomycin Sulfate 500 mg PO TID 07/24/17 [History] Pregabalin 50 mg [Lyrica 50MG] 50 mg PO BID 07/24/17 [History] Insulin Aspart [NovoLOG Insulin] 0 unit SQ AC 07/25/17 [History] Magnesium Hydroxide 30 ml [Milk of Magnesia 30 ml] 30 ml PO DAILY PRN PRN 07/25/17 [History] Sodium Phosphate,Craven-Dibasic [Fleet Enema] 1 enema R DAILY PRN PRN 07/25/17 [ History] Tolterodine Tartrate 2 mg [Detrol 2 MG] 4 mg PO DAILY 08/28/17 [History] Heparin Flush 500 units/5 ml [Heparin Lock Flush 100 Units/ml 5ml Syringe] 500 units IV UD PRN 09/10/17 [History] Modafinil 100 mg [Provigil 100MG Tablet] 200 mg PO QAM 09/10/17 [History] Potassium Chloride 10 Meq Tab* [Klor Con 10 MEQ] 20 meq PO UD 09/10/17 [ History] metOLazone [Metolazone] 5 mg PO UD 09/10/17 [History] Hx Tetanus, Diphtheria Vaccination/Date Given: No Hx Influenza Vaccination/Date Given: Yes Hx Pneumococcal Vaccination/Date Given: Yes - Review of Systems Constitutional: No Symptoms All Other Systems: Unable due to condition - Past Medical History Pertinent Past Medical History: Yes Neurological History: Dementia, Peripheral Neuropathy, Seizures, TIA ENT History: No Pertinent History Cardiac History: High Cholesterol, Hypertension Respiratory History: Asthma, Bronchitis, COPD, Sleep Apnea Endocrine Medical History: Diabetes Type II, Hypothyroidism Musculoskeletal History: Arthritis GI Medical History: Cirrhosis, Ulcer History: Other Psycho-Social History: Depression Male Reproductive Disorders: No Pertinent History Other Medical History: URINARY INCONTINENCE/retention - Past Surgical History Past Surgical History: Yes Neuro Surgical History: No Pertinent History Cardiac: No Pertinent History Respiratory: No Pertinent History Gastrointestinal: No Pertinent History Genitourinary: No Pertinent History Musculoskeletal: Orthopedic Surgery Male Surgical History: Other Other Surgical History: LATE CIRCUMCISION - tip of FINGER AMPUTATION. SUPRAPUBIC CATHETER PLACED 07/11/14 - Social History Smoking Status: Former smoker How long have you smoked: 30 Exposure to second hand smoke: No Alcohol Use: None Drug Use: none Patient Lives Alone: No Significant Family History: heart disease, diabetes - Nursing Vital Signs Nursing Vital Signs: Initial Vital Signs Temperature 97.8 F 09/25/17 12:47 Pulse Rate 79 09/25/17 12:47 Respiratory Rate 24 09/25/17 12:47 Blood Pressure 141/65 09/25/17 12:47 O2 Sat by Pulse Oximetry 99 09/25/17 12:47 Pain Scale Pain Intensity 6 - Physical Exam General Appearance: no apparent distress Eye Exam: PERRL/EOMI, eyes nml inspection Ears, Nose, Throat Exam: dry mucous membranes Neck Exam: normal inspection, non-tender, supple, No JVD Respiratory Exam: normal breath sounds, lungs clear, airway intact, No chest tenderness, No respiratory distress Cardiovascular Exam: regular rate/rhythm, normal heart sounds, normal peripheral pulses, edema, No murmur Gastrointestinal/Abdomen Exam: soft, normal bowel sounds, other (obese, suprapubic catheter in place, no discharge or redness.), No distention, No mass , No guarding Back Exam: normal inspection Extremity Exam: pedal edema, No calf tenderness Neurologic Exam: alert, cooperative, normal mood/affect, other (GCS: 13) Skin Exam: normal color, warm, dry, No rash Lymphatic Exam: No adenopathy SpO2 Interpretation: normal SpO2: 99 Oxygen Delivery: Nasal Cannula - Course Nursing assessment & vital signs reviewed: Yes EKG Interpreted by Me: RATE (78/min), NORMAL AXIS, NORMAL INTERVALS, NORMAL ST-T - Radiology Exams Chest X-ray Interpretation: Reviewed by me, Negative - CT Exams Head CT Interpretation: Negative, Tele-radiologist Report Ordered Tests: Active Orders 24 hr Category Date Time Status Unit Reactor Operator STAT Care 09/25/17 13:04 Active EKG-ER Only STAT Care 09/25/17 13:02 Active Oxygen-ED Only NASAL CANNULA 2 lpm Care 09/25/17 13:02 Active CHEST 1 VIEW (PORTABLE) Stat Exams 09/25/17 13:03 Completed HEAD WITHOUT CONTRAST [CT] Stat Exams 09/25/17 13:06 Completed ABG [ARTERIAL BLOOD GASES] Stat Lab 09/25/17 13:20 Completed CBC W DIFF Stat Lab 09/25/17 13:00 Completed CMP Stat Lab 09/25/17 13:00 Completed CULTURE,URINE Stat Lab 09/25/17 13:03 Received Lactic Acid Stat Lab 09/25/17 13:20 Completed MAGNESIUM Stat Lab 09/25/17 13:00 Completed NT PRO BNP Stat Lab 09/25/17 13:00 Completed PROTIME WITH INR Stat Lab 09/25/17 13:00 Completed PTT Stat Lab 09/25/17 13:00 Completed TROPONIN Q3H Lab 09/25/17 13:25 Completed TROPONIN Q3H Lab 09/25/17 16:15 Ordered TROPONIN Q3H Lab 09/25/17 19:15 Ordered TROPONIN Q3H Lab 09/25/17 22:15 Ordered TROPONIN Q3H Lab 09/26/17 01:15 Ordered UA W/ MICROSCOPIC Stat Lab 09/25/17 13:03 Completed Lab/Rad Data: Laboratory Result Diagrams 09/25/17 13:00 09/25/17 13:00 Laboratory Results 09/25/17 09/25/17 09/25/17 Range/Units 13:25 13:25 13:20 WBC (4.0-10.5) K/mm3 RBC (4.1-5.6) M/mm3 Hgb (12.5-18.0) gm/dl Hct (42-50) % MCV (78-100) fl MCH (26-32) pg MCHC (32-36) g/dl RDW (11.5-14.0) % Plt Count (150-450) K/mm3 MPV (6-9.5) fl Gran % (36.0-66.0) % Eos # (Auto) (0-0.5) Absolute Lymphs (auto) (1.0-4.6) Absolute Monos (auto) (0.0-1.3) Lymphocytes % (24.0-44.0) % Monocytes % (0.0-12.0) % Eosinophils % (0.00-5.0) % Basophils % (0.0-0.4) % Absolute Granulocytes (1.4-6.9) Basophils # (0-0.4) PT (8.83-12.87) SECONDS INR (0.8-3.0) APTT (24.1-36.1) SECONDS Puncture Site RIGHT RADIAL pCO2 50 H (35-45) mmHg pO2 92 (75-100) mmHg Base Excess 5.7 H (-2.0-2.0) O2 Saturation 96.0 (94-100) g/dF ABG pH 7.41 (7.35-7.45) ABG HCO3 31.7 H* (22-28) ABG O2 Sat (Measured) 99.3 (95-100) % Matt Test YES A-a Gradient 131 a/A Ratio 0.41 Hemoglobin 14.7 Carboxyhemoglobin 2.5 (0.0-6.9) % THgb Methemoglobin 0.8 L (1.4-1.5) % Temperature 37.0 C POC O2 Flow Rate 40 % Sodium (137-145) mmol/L Potassium 4.0 (3.5-5.1) mmol/L Chloride (98-107) mmol/L Carbon Dioxide (22-30) mmol/L Anion Gap (5-15) MEQ/L BUN (9-20) mg/dL Creatinine (0.66-1.25) mg/dL Estimated GFR ML/MIN Glucose (74-106) mg/dL Lactic Acid (0.4-2.0) Calcium (8.4-10.2) mg/dL Magnesium (1.6-2.3) mg/dL Total Bilirubin (0.2-1.3) mg/dL AST (17-59) U/L ALT (0-50) U/L Alkaline Phosphatase (38-126) U/L Ammonia 90 H (9-30) umol/L Troponin I < 0.012 (0.000-0.034) ng/mL NT-Pro-B Natriuret Pep (0-900) pg/mL Serum Total Protein (6.3-8.2) g/dL Albumin (3.5-5.0) g/dL Ur Collection Type Urine Color (YELLOW) Urine Appearance (CLEAR) Urine pH (5-6) Ur Specific [place] (1.005-1.025) Urine Protein (Negative) Urine Ketones (NEGATIVE) Urine Blood (0-5) Collin/ul Urine Nitrite (NEGATIVE) Urine Bilirubin (NEGATIVE) Urine Urobilinogen (0-1) mg/dL Ur Leukocyte Esterase (NEGATIVE) Urine Microscopic RBC (0-2) /HPF Urine Microscopic WBC (0-5) /HPF Ur Epithelial Cells (FEW) /HPF Amorphous Crystals (NEGATIVE) /HPF Urine Bacteria (NEGATIVE) /HPF Urine Culture Reflexed (NO) Urine Glucose (NEGATIVE) mg/dL Specimen Received 09/25/17 09/25/17 09/25/17 Range/Units 13:20 13:03 13:00 WBC (4.0-10.5) K/mm3 RBC (4.1-5.6) M/mm3 Hgb (12.5-18.0) gm/dl Hct (42-50) % MCV (78-100) fl MCH (26-32) pg MCHC (32-36) g/dl RDW (11.5-14.0) % Plt Count (150-450) K/mm3 MPV (6-9.5) fl Gran % (36.0-66.0) % Eos # (Auto) (0-0.5) Absolute Lymphs (auto) (1.0-4.6) Absolute Monos (auto) (0.0-1.3) Lymphocytes % (24.0-44.0) % Monocytes % (0.0-12.0) % Eosinophils % (0.00-5.0) % Basophils % (0.0-0.4) % Absolute Granulocytes (1.4-6.9) Basophils # (0-0.4) PT 13.7 H (8.83-12.87) SECONDS INR 1.23 (0.8-3.0) APTT 36.2 H (24.1-36.1) SECONDS Puncture Site pCO2 (35-45) mmHg pO2 (75-100) mmHg Base Excess (-2.0-2.0) O2 Saturation (94-100) g/dF ABG pH (7.35-7.45) ABG HCO3 (22-28) ABG O2 Sat (Measured) (95-100) % Matt Test A-a Gradient a/A Ratio Hemoglobin Carboxyhemoglobin (0.0-6.9) % THgb Methemoglobin (1.4-1.5) % Temperature C POC O2 Flow Rate % Sodium (137-145) mmol/L Potassium (3.5-5.1) mmol/L Chloride (98-107) mmol/L Carbon Dioxide (22-30) mmol/L Anion Gap (5-15) MEQ/L BUN (9-20) mg/dL Creatinine (0.66-1.25) mg/dL Estimated GFR ML/MIN Glucose (74-106) mg/dL Lactic Acid 1.7 (0.4-2.0) Calcium (8.4-10.2) mg/dL Magnesium (1.6-2.3) mg/dL Total Bilirubin (0.2-1.3) mg/dL AST (17-59) U/L ALT (0-50) U/L Alkaline Phosphatase (38-126) U/L Ammonia (9-30) umol/L Troponin I (0.000-0.034) ng/mL NT-Pro-B Natriuret Pep (0-900) pg/mL Serum Total Protein (6.3-8.2) g/dL Albumin (3.5-5.0) g/dL Ur Collection Type VOID Urine Color LT.YELLOW (YELLOW) Urine Appearance HAZY (CLEAR) Urine pH 7.0 (5-6) Ur Specific [place] 1.010 (1.005-1.025) Urine Protein NEGATIVE (Negative) Urine Ketones NEGATIVE (NEGATIVE) Urine Blood MODERATE (0-5) Collin/ul Urine Nitrite NEGATIVE (NEGATIVE) Urine Bilirubin NEGATIVE (NEGATIVE) Urine Urobilinogen NORMAL (0-1) mg/dL Ur Leukocyte Esterase LARGE (NEGATIVE) Urine Microscopic RBC 0-2 (0-2) /HPF Urine Microscopic WBC 0-2 (0-5) /HPF Ur Epithelial Cells FEW (FEW) /HPF Amorphous Crystals FEW (NEGATIVE) /HPF Urine Bacteria MANY (NEGATIVE) /HPF Urine Culture Reflexed YES (NO) Urine Glucose NEGATIVE (NEGATIVE) mg/dL Specimen Received 09/25/17 1355 09/25/17 09/25/17 Range/Units 13:00 13:00 WBC 5.4 (4.0-10.5) K/mm3 RBC 4.57 (4.1-5.6) M/mm3 Hgb 14.7 (12.5-18.0) gm/dl Hct 42.3 (42-50) % MCV 92.6 (78-100) fl MCH 32.2 H (26-32) pg MCHC 34.8 (32-36) g/dl RDW 14.4 H (11.5-14.0) % Plt Count 88 L (150-450) K/mm3 MPV 11.5 H (6-9.5) fl Gran % 65.9 (36.0-66.0) % Eos # (Auto) 0.20 (0-0.5) Absolute Lymphs (auto) 0.94 L (1.0-4.6) Absolute Monos (auto) 0.69 (0.0-1.3) Lymphocytes % 17.4 L (24.0-44.0) % Monocytes % 12.8 H (0.0-12.0) % Eosinophils % 3.7 (0.00-5.0) % Basophils % 0.2 (0.0-0.4) % Absolute Granulocytes 3.55 (1.4-6.9) Basophils # 0.01 (0-0.4) PT (8.83-12.87) SECONDS INR (0.8-3.0) APTT (24.1-36.1) SECONDS Puncture Site pCO2 (35-45) mmHg pO2 (75-100) mmHg Base Excess (-2.0-2.0) O2 Saturation (94-100) g/dF ABG pH (7.35-7.45) ABG HCO3 (22-28) ABG O2 Sat (Measured) (95-100) % Matt Test A-a Gradient a/A Ratio Hemoglobin Carboxyhemoglobin (0.0-6.9) % THgb Methemoglobin (1.4-1.5) % Temperature C POC O2 Flow Rate % Sodium 139 (137-145) mmol/L Potassium 4.1 (3.5-5.1) mmol/L Chloride 99 (98-107) mmol/L Carbon Dioxide 31 H (22-30) mmol/L Anion Gap 13.9 (5-15) MEQ/L BUN 21 H (9-20) mg/dL Creatinine 1.27 H (0.66-1.25) mg/dL Estimated GFR > 60.0 ML/MIN Glucose 260 H (74-106) mg/dL Lactic Acid (0.4-2.0) Calcium 9.5 (8.4-10.2) mg/dL Magnesium 1.9 (1.6-2.3) mg/dL Total Bilirubin 1.50 H (0.2-1.3) mg/dL AST 85 H (17-59) U/L ALT 61 H (0-50) U/L Alkaline Phosphatase 109 (38-126) U/L Ammonia (9-30) umol/L Troponin I (0.000-0.034) ng/mL NT-Pro-B Natriuret Pep 80.9 (0-900) pg/mL Serum Total Protein 7.5 (6.3-8.2) g/dL Albumin 3.5 (3.5-5.0) g/dL Ur Collection Type Urine Color (YELLOW) Urine Appearance (CLEAR) Urine pH (5-6) Ur Specific [place] (1.005-1.025) Urine Protein (Negative) Urine Ketones (NEGATIVE) Urine Blood (0-5) Collin/ul Urine Nitrite (NEGATIVE) Urine Bilirubin (NEGATIVE) Urine Urobilinogen (0-1) mg/dL Ur Leukocyte Esterase (NEGATIVE) Urine Microscopic RBC (0-2) /HPF Urine Microscopic WBC (0-5) /HPF Ur Epithelial Cells (FEW) /HPF Amorphous Crystals (NEGATIVE) /HPF Urine Bacteria (NEGATIVE) /HPF Urine Culture Reflexed (NO) Urine Glucose (NEGATIVE) mg/dL Specimen Received - Progress Progress: unchanged Progress Note: 09/25/17 16:13 Pt is asleep, mildly lethargic, easy to arouse, denies any pain, afebrile, no sign of difficulty breathing or any distress. I called Dr Ayala discussed this patients results and his current condition, he agreed to discharge him back to snf he will follow up there. Discussed with : Jamie Will see patient in: other (snf) - Departure Time of Disposition: 16:15 Departure Disposition: Extended Care Facility Clinical Impression: Altered mental status, unspecified Qualifiers: Altered mental status type: unspecified Qualified Code(s): R41.82 - Altered mental status, unspecified COPD (chronic obstructive pulmonary disease) Qualifiers: COPD type: chronic bronchitis Chronic bronchitis type: unspecified Qualified Code(s): J42 - Unspecified chronic bronchitis Condition: Stable Critical Care Time: No Referrals: [facility] [LOCATION] - Instructions: Chronic Obstructive Pulmonary Disease Additional Instructions: Follow up with PCP in 2-3 days, return if severe lethargy, vomiting, fever> 102F , or difficulty breathing!
[2017-09-25 13:25] LABS: A-aADO2 131; ABG HEMOGLOBIN 14.7; ABG SITE RIGHT RADIAL; ALLEN TEST OK? YES; ARTERIAL BLD GAS O2 SATURATION 99.3 % (95-100); ARTERIAL BLOOD GAS BASE EXCESS 5.7 (-2.0-2.0); ARTERIAL BLOOD GAS FIO2 40 %; ARTERIAL BLOOD GAS PCO2 50 mmHg (35-45); ARTERIAL BLOOD GAS PO2 92 mmHg (75-100); ARTERIAL BLOOD GAS pH 7.41 (7.35-7.45); CARBOXYHEMOGLOBIN 2.5 % THgb (0.0-6.9); HCO3- 31.7 (22-28); Methhemoglobin 0.8 % (1.4-1.5); paO2 pAO1 0.41
[2017-09-25 13:44] LABS: INR 1.23 (0.8-3.0)
[2017-09-25 13:47] LABS: PTT 36.2 SECONDS (24.1-36.1)
[2017-09-25 13:50] LABS: ALBUMIN 3.5 g/dL (3.5-5.0); ALKALINE PHOSPHATASE 109 U/L (38-126); ANION GAP 13.9 MEQ/L (5-15); BLOOD UREA NITROGEN 21 mg/dL (9-20); CHLORIDE 99 mmol/L (98-107); Calcium 9.5 mg/dL (8.4-10.2); Carbon Dioxide 31 mmol/L (22-30); Creatinine 1 1.27 mg/dL (0.66-1.25); Glucose 260 mg/dL (74-106); Potassium 4.1 mmol/L (3.5-5.1); SGOT/AST 85 U/L (17-59); SGPT/ALT 61 U/L (0-50); SODIUM 139 mmol/L (137-145); Total Protein 7.5 g/dL (6.3-8.2)
--- NOTE | 2017-09-25 13:51 | XRAY ---
Indication: Acute mental status change. Comparison: September 10, 2017. Pourable chest again demonstrates normal heart and lungs with interval PICC line removal. No new/acute findings.
[2017-09-25 13:55] LABS: Appearance HAZY (CLEAR); Bilirubin NEGATIVE (NEGATIVE); Blood MODERATE Ery/ul (0-5); Glucose NEGATIVE (NEGATIVE); Ketones NEGATIVE (NEGATIVE); Leukocyte Esterase LARGE (NEGATIVE); Nitrite NEGATIVE (NEGATIVE); Protein,Urine Dip NEGATIVE (Negative); Urobilinogen NORMAL mg/dL (0-1)
[2017-09-25 13:56] LABS: NT PRO BNP 80.9 pg/mL (0-900)
--- NOTE | 2017-09-25 13:56 | XRAY ---
Indication: Altered mental status. Multiple contiguous axial images obtained through the head without contrast. Comparison: September 10, 2017. Again images through the base of the brain slightly degraded by motion artifact even with repeat CT. Stable age-appropriate global atrophy. No acute intracranial hemorrhage, abnormal extra-axial fluid collection, or mass effect. Fourth ventricle is midline without hydrocephalus. Mora-white matter differentiation preserved. Bony calvarium intact. Visualized paranasal sinuses and mastoid air cells are clear. Impression: Motion artifact. Again no gross new or acute intracranial abnormalities. CT DI 70.62
[2017-09-25 14:00] LABS: BASOPHIL % 0.2 % (0.0-0.4); Basophil (Absolute #) 0.01 (0-0.4); Eosinophil % 3.7 % (0.00-5.0); Granulocyte Absolute (ANC) 3.55 (1.4-6.9); Granulocytes % 65.9 % (36.0-66.0); Hematocrit 42.3 % (42-50); Hemoglobin 14.7 gm/dl (12.5-18.0); Lymphocyte (Absolute #) 0.94 (1.0-4.6); Lymphocytes % 17.4 % (24.0-44.0); Mean Cell Volume 92.6 fl (78-100); Mean Corpuscular Hemoglobin 32.2 pg (26-32); Mean Corpuscular Hgb Concent. 34.8 g/dl (32-36); Mean Platelet Volume 11.5 fl (6-9.5); Monocyte (Absolute #) 0.69 (0.0-1.3); Monocytes % 12.8 % (0.0-12.0); Red Blood Count 4.57 M/mm3 (4.1-5.6); Red Cell Distribution Width 14.4 % (11.5-14.0); White Blood Count 5.4 K/mm3 (4.0-10.5)
[2017-09-25 14:04] LABS: Amourphous Crystal FEW /HPF (NEGATIVE); Bacteria MANY /HPF (NEGATIVE); Epithelial Cells FEW /HPF (FEW); WBC 0-2 /HPF (0-5)
[2017-09-25 14:43] LABS: Platelet Count 88 K/mm3 (150-450)
[2017-09-25 16:03] VITALS: BP 132/63; PULSE 88
[2017-09-25 16:17] VITALS: O2SAT 99
== END 2017-09-25 16:37 ==
LOC: ED 12:46
DX: R41.82 Altered mental status, unspecified (principal); J42 Unspecified chronic bronchitis; J44.9 Chronic obstructive pulmonary disease, unspecified; J45.909 Unspecified asthma, uncomplicated; M19.90 Unspecified osteoarthritis, unspecified site; G47.30 Sleep apnea, unspecified; E11.9 Type 2 diabetes mellitus without complications; Z79.4 Long term (current) use of insulin; E03.9 Hypothyroidism, unspecified; K74.60 Unspecified cirrhosis of liver; R32 Unspecified urinary incontinence; I10 Essential (primary) hypertension; E78.00 Pure hypercholesterolemia, unspecified; Z87.891 Personal history of nicotine dependence; F03.90 Unspecified dementia, unspecified severity, without behavioral disturbance, psychotic disturbance, mood disturbance, and anxiety; G62.9 Polyneuropathy, unspecified; G40.909 Epilepsy, unspecified, not intractable, without status epilepticus; Z79.899 Other long term (current) drug therapy; Z86.73 Personal history of transient ischemic attack (TIA), and cerebral infarction without residual deficits; M54.9 Dorsalgia, unspecified; G89.29 Other chronic pain; F45.42 Pain disorder with related psychological factors
CPT/HCPCS: 36000; 36415; 36600; 70450; 71045; 80053; 81000; 82140; 82375; 82803; 82962; 83605; 83735; 83880; 84484; 85025; 85610; 85730; 87077; 87086; 87186; 93005; 93041; 99284

== ENCOUNTER 2017-11-28 12:08 | Observation (INO) | payer MEDICARE ==
[2017-11-28] MEDS ORDERED: Sodium Chloride 0.9% 1000 ML 1,000 ML IV STA ×2 (12:19→13:48)
[2017-11-28] MEDS ORDERED: DUONEB 0.5-3 MG/3 ml Neb IH ONE ×2 (12:27→12:55)
--- NOTE | 2017-11-28 12:27 | ERPHSYRPT ---
- History of Present Illness Time Seen by Provider: 11/28/17 12:22 Source: EMS, [facility] records Physician History: 56-year-old white male with history of dementia, peripheral neuropathy, seizures , TIA, hypercholesterolemia, high blood pressure, asthma, bronchitis, COPD, sleep apnea, diabetes type 2 Patient is brought by medics with complaint of decreased level of consciousness this morning Patient apparently noted at the [facility] have decreased level of consciousness they were unable to arouse the patient. On arrival patient response to pain however he is unresponsive to verbal stimuli. Past medical history includes dementia, peripheral neuropathy, seizures, TIA, hypercholesterolemia, high blood pressure, asthma, bronchitis, sleep apnea, COPD , diabetes type 2, hypothyroidism, arthritis, cirrhosis, ulcers, depression, urinary retention, urinary obstruction Past surgical history includes orthopedic surgery, late circumstances and, tip of finger amputated, suprapubic catheter. Timing/Duration: today Severity: moderate Modifying Factors: Improves With: nothing Associated Symptoms: other (patient unable to respond to questions) Allergies/Adverse Reactions: metformin Allergy (Mild, Verified 09/10/17 12:44) Diarrhea phenytoin sodium [From Dilantin] Allergy (Mild, Verified 09/10/17 12:44) phenytoin sodium extended [From Dilantin] Allergy (Mild, Verified 07/15/17 18:38 ) carbamazepine [From Tegretol] Allergy (Unknown, Verified 09/10/17 12:44) Home Medications: Aripiprazole [Abilify] 5 mg PO HS 06/19/17 [History] Escitalopram Oxalate [Lexapro] 20 mg PO HS 06/19/17 [History] Folic Acid 1 mg [Folate 1 mg] 1 mg PO DAILY 06/19/17 [History] Lactulose 20 gm PO 5XD 06/19/17 [History] Levothyroxine Sodium 75 Mcg [Synthroid 75 Mcg] 75 mcg PO QAM 06/19/17 [ History] Multivitamin [Multivitamins] 1 each PO QAM 06/19/17 [History] Oxycodone HCl 5 mg Ir [Oxy-IR 5 MG] 10 mg PO TID 06/19/17 [History] PANTOPRAZOLE 40 mg Tablet [Protonix 40MG Tablet] 40 mg PO QAM 06/19/17 [ History] Thiamine HCl 100 mg [Vitamin B-1 100 mg] 100 mg PO QAM 06/19/17 [History] Acetaminophen [Tylenol] 650 mg PO Q4HPRN PRN 07/24/17 [History] Amiloride HCl 5 mg PO BID 07/24/17 [History] Ascorbic Acid/Ascorbate Sodium [Vitamin C 250 mg Tablet Chew] 750 mg PO BID [History] Aspirin/Acetaminophen/Caffeine [Excedrin Migraine Caplet] 1 tab PO BIDPRN PRN [History] Bumetanide [Bumex] 4 mg PO BID 07/24/17 [History] Calcium Carbonate/Vitamin D3 [Calcium 600 + Vit D Tablet] 1 tab PO BID 07/24/17 [History] Clonazepam 0.5 mg [Klonopin 0.5 MG] 0.25 mg PO TID 07/24/17 [History] Dextran 70/Hypromellose [Artificial Tears] 1 drop OP TID 07/24/17 [History] Levetiracetam 250 MG [Keppra 250 MG] 250 mg PO BID 07/24/17 [History] Neomycin Sulfate 500 mg PO TID 07/24/17 [History] Pregabalin 50 mg [Lyrica 50MG] 50 mg PO BID 07/24/17 [History] Insulin Aspart [NovoLOG Insulin] 0 unit SQ AC 07/25/17 [History] Magnesium Hydroxide 30 ml [Milk of Magnesia 30 ml] 30 ml PO DAILY PRN PRN 07/25/17 [History] Sodium Phosphate,[place]-Dibasic [Fleet Enema] 1 enema R DAILY PRN PRN 07/25/17 [ History] Tolterodine Tartrate 2 mg [Detrol 2 MG] 4 mg PO DAILY 08/28/17 [History] Heparin Flush 500 units/5 ml [Heparin Lock Flush 100 Units/ml 5ml Syringe] 500 units IV UD PRN 09/10/17 [History] Modafinil 100 mg [Provigil 100MG Tablet] 200 mg PO QAM 09/10/17 [History] Potassium Chloride 10 Meq Tab* [Klor Con 10 MEQ] 20 meq PO UD 09/10/17 [ History] metOLazone [Metolazone] 5 mg PO UD 09/10/17 [History] Hx Tetanus, Diphtheria Vaccination/Date Given: No Hx Influenza Vaccination/Date Given: Yes Hx Pneumococcal Vaccination/Date Given: Yes - Review of Systems Constitutional: No Fever, No Chills Eyes: No Symptoms Ears, Nose, & Throat: No Symptoms Respiratory: No Cough, No Dyspnea Cardiac: No Chest Pain, No Edema, No Syncope Abdominal/Gastrointestinal: No Abdominal Pain, No Nausea, No Vomiting, No Diarrhea Genitourinary Symptoms: No Dysuria Musculoskeletal: No Back Pain, No Neck Pain Skin: No Rash Neurological: Other (decreased level consciousness at [facility]) Psychological: No Symptoms Endocrine: No Symptoms All Other Systems: Unable due to condition - Past Medical History Pertinent Past Medical History: Yes Neurological History: Dementia, Peripheral Neuropathy, Seizures, TIA ENT History: No Pertinent History Cardiac History: High Cholesterol, Hypertension Respiratory History: Asthma, Bronchitis, COPD, Sleep Apnea Endocrine Medical History: Diabetes Type II, Hypothyroidism Musculoskeletal History: Arthritis GI Medical History: Cirrhosis, Ulcer History: Other Psycho-Social History: Depression Male Reproductive Disorders: No Pertinent History Other Medical History: URINARY INCONTINENCE/retention - Past Surgical History Past Surgical History: Yes Neuro Surgical History: No Pertinent History Cardiac: No Pertinent History Respiratory: No Pertinent History Gastrointestinal: No Pertinent History Genitourinary: No Pertinent History Musculoskeletal: Orthopedic Surgery Male Surgical History: Other Other Surgical History: LATE CIRCUMCISION - tip of FINGER AMPUTATION. SUPRAPUBIC CATHETER PLACED 07/11/14 - Social History Smoking Status: Former smoker How long have you smoked: 30 Exposure to second hand smoke: No Alcohol Use: None Drug Use: none Patient Lives Alone: No Significant Family History: heart disease, diabetes - Nursing Vital Signs Nursing Vital Signs: Initial Vital Signs Temperature 99.0 F 11/28/17 12:13 Pulse Rate 90 11/28/17 12:13 Respiratory Rate 14 11/28/17 12:13 Blood Pressure 91/62 11/28/17 12:13 O2 Sat by Pulse Oximetry 95 11/28/17 12:13 Pain Scale Pain Intensity 0 - Physical Exam General Appearance: other (well-developed obese white male extreemly somulant reacts to pain) Eye Exam: PERRL/EOMI, eyes nml inspection Ears, Nose, Throat Exam: normal ENT inspection, TMs normal, pharynx normal, moist mucous membranes Neck Exam: normal inspection, non-tender, supple, full range of motion Respiratory Exam: normal breath sounds, lungs clear, No respiratory distress Cardiovascular Exam: regular rate/rhythm, normal heart sounds, normal peripheral pulses Gastrointestinal/Abdomen Exam: soft, normal bowel sounds, No tenderness, No mass Back Exam: normal inspection, normal range of motion, No CVA tenderness, No vertebral tenderness Extremity Exam: normal inspection, normal range of motion, pelvis stable Neurologic Exam: 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 No acute intracranial abnormality. 2. Volume loss 3. Minimal ASVD. ) Ordered Tests: Active Orders 24 hr Category Date Time Status Accucheck STAT Care 11/28/17 12:21 Active Private Branch Exchange Operator STAT Care 11/28/17 12:21 Active EKG-ER Only STAT Care 11/28/17 12:19 Active IV Insertion STAT Care 11/28/17 12:19 Active CHEST 1 VIEW (PORTABLE) Stat Exams 11/28/17 12:20 Taken HEAD WITHOUT CONTRAST [CT] Stat Exams 11/28/17 12:21 Taken AMYLASE Stat Lab 11/28/17 12:30 Completed ARTERIAL BLOOD GASES Urgent Lab 11/28/17 12:35 Completed BLOOD CULTURE Stat Lab 11/28/17 12:30 Received CBC W DIFF Stat Lab 11/28/17 12:30 Completed CMP Stat Lab 11/28/17 12:30 Completed CULTURE,URINE Stat Lab 11/28/17 12:30 Received LIPASE Stat Lab 11/28/17 12:30 Completed Lactic Acid Stat Lab 11/28/17 12:35 Results NT PRO BNP Stat Lab 11/28/17 12:30 Completed PROTIME WITH INR Stat Lab 11/28/17 12:30 Completed PTT Stat Lab 11/28/17 12:30 Completed UA W/ MICROSCOPIC Stat Lab 11/28/17 12:30 Completed Respiratory Nebulizer STAT RT 11/28/17 12:27 Active Medication Summary Generic Name Dose Route Start Last Admin Trade Name Kiki PRN Reason Stop Dose Admin Sodium Chloride 1,000 mls @ 999 mls/hr 11/28/17 13:48 11/28/17 13:53 Sodium Chloride 0.9% 1000 Ml IV 11/28/17 14:48 999 mls/hr .Q1H1M STA Administration Discontinued Medications Generic Name Dose Route Start Last Admin Trade Name Kiki PRN Reason Stop Dose Admin Albuterol/Ipratropium 3 ml 11/28/17 12:27 11/28/17 12:59 Duoneb 0.5-3 Mg/3 Ml Neb IH 11/28/17 12:28 3 ml STAT ONE Administration Albuterol/Ipratropium Confirm 11/28/17 12:55 Duoneb 0.5-3 Mg/3 Ml Neb Administered 11/28/17 12:56 Dose 3 ml IH .STK-MED ONE Sodium Chloride 1,000 mls @ 999 mls/hr 11/28/17 12:19 11/28/17 13:54 Sodium Chloride 0.9% 1000 Ml IV 11/28/17 13:19 Infused .Q1H1M STA Infusion Sodium Chloride Confirm 11/28/17 12:41 Sodium Chloride 0.9% 1000 Ml Administered 11/28/17 12:42 Dose 1,000 mls @ ud .ROUTE .STK-MED ONE Sodium Chloride Confirm 11/28/17 13:12 Sodium Chloride 0.9% 1000 Ml Administered 11/28/17 13:13 Dose 1,000 mls @ ud .ROUTE .STK-MED ONE Sodium Chloride Confirm 11/28/17 13:52 Sodium Chloride 0.9% 1000 Ml Administered 11/28/17 13:53 Dose 1,000 mls @ ud .ROUTE .STK-MED ONE Lab/Rad Data: Laboratory Result Diagrams 11/28/17 12:30 11/28/17 12:30 Laboratory Results 11/28/17 11/28/17 11/28/17 Range/Units 12:35 12:35 12:30 WBC (4.0-10.5) K/mm3 RBC (4.1-5.6) M/mm3 Hgb (12.5-18.0) gm/dl Hct (42-50) % MCV (78-100) fl MCH (26-32) pg MCHC (32-36) g/dl RDW (11.5-14.0) % Plt Count (150-450) K/mm3 MPV (6-9.5) fl Gran % (36.0-66.0) % Eos # (Auto) (0-0.5) Absolute Lymphs (auto) (1.0-4.6) Absolute Monos (auto) (0.0-1.3) Lymphocytes % (24.0-44.0) % Monocytes % (0.0-12.0) % Eosinophils % (0.00-5.0) % Basophils % (0.0-0.4) % Absolute Granulocytes (1.4-6.9) Basophils # (0-0.4) PT (8.83-12.87) SECONDS INR (0.8-3.0) APTT (24.1-36.1) SECONDS Puncture Site RIGHT RADIAL pCO2 39 (35-45) mmHg pO2 72 L (75-100) mmHg Base Excess 5.9 H (-2.0-2.0) O2 Saturation 94.7 (94-100) g/dF ABG pH 7.49 H (7.35-7.45) ABG HCO3 29.7 H* (22-28) ABG O2 Sat (Measured) 98.4 (95-100) % Matt Test YES A-a Gradient 122 a/A Ratio 0.37 Hemoglobin 16.4 Carboxyhemoglobin 3.0 (0.0-6.9) % THgb Methemoglobin 0.7 L (1.4-1.5) % Temperature 37.0 C POC O2 Flow Rate 34 % Sodium (137-145) mmol/L Potassium 4.4 (3.5-5.1) mmol/L Chloride (98-107) mmol/L Carbon Dioxide (22-30) mmol/L Anion Gap (5-15) MEQ/L BUN (9-20) mg/dL Creatinine (0.66-1.25) mg/dL Estimated GFR ML/MIN Glucose (74-106) mg/dL Lactic Acid 2.5 H (0.4-2.0) Calcium (8.4-10.2) mg/dL Total Bilirubin (0.2-1.3) mg/dL AST (17-59) U/L ALT (0-50) U/L Alkaline Phosphatase (38-126) U/L NT-Pro-B Natriuret Pep 38.8 (0-900) pg/mL Serum Total Protein (6.3-8.2) g/dL Albumin (3.5-5.0) g/dL Amylase (30-110) U/L Lipase (23-300) U/L Ur Collection Type Urine Color (YELLOW) Urine Appearance (CLEAR) Urine pH (5-6) Ur Specific [place] (1.005-1.025) Urine Protein (Negative) Urine Ketones (NEGATIVE) Urine Blood (0-5) Collin/ul Urine Nitrite (NEGATIVE) Urine Bilirubin (NEGATIVE) Urine Urobilinogen (0-1) mg/dL Ur Leukocyte Esterase (NEGATIVE) Urine Microscopic RBC (0-2) /HPF Urine Microscopic WBC (0-5) /HPF Ur Epithelial Cells (FEW) /HPF Urine Bacteria (NEGATIVE) /HPF Urine Culture Reflexed (NO) Urine Glucose (NEGATIVE) mg/dL Specimen Received 11/28/17 11/28/17 11/28/17 Range/Units 12:30 12:30 12:30 WBC (4.0-10.5) K/mm3 RBC (4.1-5.6) M/mm3 Hgb (12.5-18.0) gm/dl Hct (42-50) % MCV (78-100) fl MCH (26-32) pg MCHC (32-36) g/dl RDW (11.5-14.0) % Plt Count (150-450) K/mm3 MPV (6-9.5) fl Gran % (36.0-66.0) % Eos # (Auto) (0-0.5) Absolute Lymphs (auto) (1.0-4.6) Absolute Monos (auto) (0.0-1.3) Lymphocytes % (24.0-44.0) % Monocytes % (0.0-12.0) % Eosinophils % (0.00-5.0) % Basophils % (0.0-0.4) % Absolute Granulocytes (1.4-6.9) Basophils # (0-0.4) PT 13.6 H (8.83-12.87) SECONDS INR 1.17 (0.8-3.0) APTT 35.5 (24.1-36.1) SECONDS Puncture Site pCO2 (35-45) mmHg pO2 (75-100) mmHg Base Excess (-2.0-2.0) O2 Saturation (94-100) g/dF ABG pH (7.35-7.45) ABG HCO3 (22-28) ABG O2 Sat (Measured) (95-100) % Matt Test A-a Gradient a/A Ratio Hemoglobin Carboxyhemoglobin (0.0-6.9) % THgb Methemoglobin (1.4-1.5) % Temperature C POC O2 Flow Rate % Sodium 134 L (137-145) mmol/L Potassium 4.5 (3.5-5.1) mmol/L Chloride 96 L (98-107) mmol/L Carbon Dioxide 26 (22-30) mmol/L Anion Gap 16.7 H (5-15) MEQ/L BUN 76 H (9-20) mg/dL Creatinine 2.21 H (0.66-1.25) mg/dL Estimated GFR 33.0 ML/MIN Glucose 225 H (74-106) mg/dL Lactic Acid (0.4-2.0) Calcium 9.5 (8.4-10.2) mg/dL Total Bilirubin 2.60 H (0.2-1.3) mg/dL AST 107 H (17-59) U/L ALT 66 H (0-50) U/L Alkaline Phosphatase 182 H (38-126) U/L NT-Pro-B Natriuret Pep (0-900) pg/mL Serum Total Protein 8.6 H (6.3-8.2) g/dL Albumin 3.9 (3.5-5.0) g/dL Amylase 94 (30-110) U/L Lipase 181 (23-300) U/L Ur Collection Type CATH Urine Color YELLOW (YELLOW) Urine Appearance CLEAR (CLEAR) Urine pH 7.0 (5-6) Ur Specific [place] 1.005 (1.005-1.025) Urine Protein 30 (Negative) Urine Ketones NEGATIVE (NEGATIVE) Urine Blood 250 (0-5) Collin/ul Urine Nitrite NEGATIVE (NEGATIVE) Urine Bilirubin NEGATIVE (NEGATIVE) Urine Urobilinogen NORMAL (0-1) mg/dL Ur Leukocyte Esterase 1+ (NEGATIVE) Urine Microscopic RBC 10-15 (0-2) /HPF Urine Microscopic WBC 2-5 (0-5) /HPF Ur Epithelial Cells FEW (FEW) /HPF Urine Bacteria FEW (NEGATIVE) /HPF Urine Culture Reflexed YES (NO) Urine Glucose NEGATIVE (NEGATIVE) mg/dL Specimen Received 11-28-17 1230 11/28/17 Range/Units 12:30 WBC 7.9 (4.0-10.5) K/mm3 RBC 5.16 (4.1-5.6) M/mm3 Hgb 16.9 (12.5-18.0) gm/dl Hct 46.7 (42-50) % MCV 90.5 (78-100) fl MCH 32.8 H (26-32) pg MCHC 36.2 H (32-36) g/dl RDW 13.9 (11.5-14.0) % Plt Count 139 L (150-450) K/mm3 MPV 10.8 H (6-9.5) fl Gran % 64.4 (36.0-66.0) % Eos # (Auto) 0.31 (0-0.5) Absolute Lymphs (auto) 1.53 (1.0-4.6) Absolute Monos (auto) 0.93 (0.0-1.3) Lymphocytes % 19.3 L (24.0-44.0) % Monocytes % 11.8 (0.0-12.0) % Eosinophils % 3.9 (0.00-5.0) % Basophils % 0.6 (0.0-0.4) % Absolute Granulocytes 5.09 (1.4-6.9) Basophils # 0.05 (0-0.4) PT (8.83-12.87) SECONDS INR (0.8-3.0) APTT (24.1-36.1) SECONDS Puncture Site pCO2 (35-45) mmHg pO2 (75-100) mmHg Base Excess (-2.0-2.0) O2 Saturation (94-100) g/dF ABG pH (7.35-7.45) ABG HCO3 (22-28) ABG O2 Sat (Measured) (95-100) % Matt Test A-a Gradient a/A Ratio Hemoglobin Carboxyhemoglobin (0.0-6.9) % THgb Methemoglobin (1.4-1.5) % Temperature C POC O2 Flow Rate % Sodium (137-145) mmol/L Potassium (3.5-5.1) mmol/L Chloride (98-107) mmol/L Carbon Dioxide (22-30) mmol/L Anion Gap (5-15) MEQ/L BUN (9-20) mg/dL Creatinine (0.66-1.25) mg/dL Estimated GFR ML/MIN Glucose (74-106) mg/dL Lactic Acid (0.4-2.0) Calcium (8.4-10.2) mg/dL Total Bilirubin (0.2-1.3) mg/dL AST (17-59) U/L ALT (0-50) U/L Alkaline Phosphatase (38-126) U/L NT-Pro-B Natriuret Pep (0-900) pg/mL Serum Total Protein (6.3-8.2) g/dL Albumin (3.5-5.0) g/dL Amylase (30-110) U/L Lipase (23-300) U/L Ur Collection Type Urine Color (YELLOW) Urine Appearance (CLEAR) Urine pH (5-6) Ur Specific [place] (1.005-1.025) Urine Protein (Negative) Urine Ketones (NEGATIVE) Urine Blood (0-5) Collin/ul Urine Nitrite (NEGATIVE) Urine Bilirubin (NEGATIVE) Urine Urobilinogen (0-1) mg/dL Ur Leukocyte Esterase (NEGATIVE) Urine Microscopic RBC (0-2) /HPF Urine Microscopic WBC (0-5) /HPF Ur Epithelial Cells (FEW) /HPF Urine Bacteria (NEGATIVE) /HPF Urine Culture Reflexed (NO) Urine Glucose (NEGATIVE) mg/dL Specimen Received - Progress Progress: improved Progress Note: 11/28/17 13:49 56-year-old white male who is brought by medics with decreased level of consciousness at the [facility] on arrival patient is responsive to pain he does speak a little bit to the nurses after receiving 1 L of fluids. Patient's head CT no acute intracranial process chest x-ray no acute disease process patient's CBC shows a white count of 7.9 hemoglobin 16.9 hematocrit 46.7 platelets 139 Patient did have a lactate which was elevated at 2.5 patient with a BNP of 38.8 Chest x-ray no acute disease process noted EKG normal sinus rhythm no acute ST or T wave changes Chemistry was remarkable for a BUN of 76 and a creatinine of 2.21 sodium 134 potassium 4.5 chloride 96 bicarbonate 26 glucose 225 Total bilirubin was elevated at 2.6 AST 107 ALT 66 alkaline phosphatase 182. Patient does appear to be somewhat more alert after 1 L of normal saline he will be given a second liter of normal saline and then placed on IV normal saline at 150 mL per hour, I do not feel like this patient is septic he does not have a focus of infection patient with good perfusion to all extremities blood pressure is stable pulses stable, I've discussed the case with Dr. Wayne will place patient on observation diagnosis decreased level of consciousness, dehydration, Will plan to continue IV fluids neuro checks every 4 hours continued duo neb treatments.. - Departure Time of Disposition: 13:52 Departure Disposition: Observation Clinical Impression: Decreased level of consciousness, Dehydration Condition: Fair Critical Care Time: No Referrals: HANK MERA [Primary Care Provider] -
[2017-11-28] MEDS ORDERED: Sodium Chloride 0.9% 1000 ML 1,000 ML ONE ×3 (12:41→13:52)
[2017-11-28 12:46] LABS: A-aADO2 122; ABG HEMOGLOBIN 16.4; ABG POTASSIUM 4.4 (3.5-5.1); ARTERIAL BLD GAS O2 SATURATION 98.4 % (95-100); ARTERIAL BLOOD GAS BASE EXCESS 5.9 (-2.0-2.0); ARTERIAL BLOOD GAS FIO2 34 %; ARTERIAL BLOOD GAS PCO2 39 mmHg (35-45); ARTERIAL BLOOD GAS PO2 72 mmHg (75-100); ARTERIAL BLOOD GAS pH 7.49 (7.35-7.45); HCO3- 29.7 (22-28); HGB O2 SAT 94.7 g/dF (94-100); Methhemoglobin 0.7 % (1.4-1.5); paO2 pAO1 0.37
[2017-11-28 12:47] LABS: ABG SITE RIGHT RADIAL; ALLEN TEST OK? YES
[2017-11-28 12:49] LABS: Lactic Acid 2.5 (0.4-2.0)
[2017-11-28 12:50] LABS: BASOPHIL % 0.6 % (0.0-0.4); Basophil (Absolute #) 0.05 (0-0.4); Eosinophil % 3.9 % (0.00-5.0); Eosinophil (Absolute #) 0.31 (0-0.5); Granulocyte Absolute (ANC) 5.09 (1.4-6.9); Granulocytes % 64.4 % (36.0-66.0); Hematocrit 46.7 % (42-50); Hemoglobin 16.9 gm/dl (12.5-18.0); Lymphocyte (Absolute #) 1.53 (1.0-4.6); Lymphocytes % 19.3 % (24.0-44.0); Mean Cell Volume 90.5 fl (78-100); Mean Corpuscular Hemoglobin 32.8 pg (26-32); Mean Corpuscular Hgb Concent. 36.2 g/dl (32-36); Mean Platelet Volume 10.8 fl (6-9.5); Monocyte (Absolute #) 0.93 (0.0-1.3); Monocytes % 11.8 % (0.0-12.0); Platelet Count 139 K/mm3 (150-450); Red Blood Count 5.16 M/mm3 (4.1-5.6); Red Cell Distribution Width 13.9 % (11.5-14.0); White Blood Count 7.9 K/mm3 (4.0-10.5)
[2017-11-28 13:03] LABS: INR 1.17 (0.8-3.0)
[2017-11-28 13:06] LABS: PTT 35.5 SECONDS (24.1-36.1)
[2017-11-28 13:07] LABS: ALBUMIN 3.9 g/dL (3.5-5.0); ANION GAP 16.7 MEQ/L (5-15); BILIRUBIN,TOTAL 2.6 mg/dL (0.2-1.3); Calcium 9.5 mg/dL (8.4-10.2); Creatinine 1 2.21 mg/dL (0.66-1.25); Potassium 4.5 mmol/L (3.5-5.1); Total Protein 8.6 g/dL (6.3-8.2)
[2017-11-28 13:16] LABS: Appearance CLEAR (CLEAR); Bacteria FEW /HPF (NEGATIVE); Bilirubin NEGATIVE (NEGATIVE); Blood 250 Ery/ul (0-5); Epithelial Cells FEW /HPF (FEW); Glucose NEGATIVE (NEGATIVE); Ketones NEGATIVE (NEGATIVE); Leukocyte Esterase 1+ (NEGATIVE); Nitrite NEGATIVE (NEGATIVE); Protein,Urine Dip 30 (Negative); Specific Gravity 1.005 (1.005-1.025); Urobilinogen NORMAL mg/dL (0-1)
[2017-11-28] MEDS ORDERED: DUONEB 0.5-3 MG/3 ml Neb IH PRN (15:01)
[2017-11-28] MEDS ORDERED: NovoLOG Insulin SQ PRN (15:01)
[2017-11-28] MEDS: Sodium Chloride 0.9% 1000 ML 1,000 ML IV SCH ×2 (15:38→21:51)
[2017-11-28] MEDS: PROVENTIL 2.5 MG/3 ML NEB IH SCH (19:43)
[2017-11-28] MEDS: Advair Hfa 115/21 Common canister IH SCH (19:45)
--- NOTE | 2017-11-28 20:52 | XRAY ---
Indication: Acute mental status change. Comparison: September 25, 2017. Portable chest less inflated without focal infiltrate, consolidation, or large effusion. Heart is not enlarged. No new/acute findings.
--- NOTE | 2017-11-28 20:54 | XRAY ---
Indication: Altered mental status. Multiple contiguous axial images obtained through the head without contrast. Comparison: September 25, 2017. Again study slightly degraded by motion artifact. Stable age-appropriate global atrophy. No acute intracranial hemorrhage, abnormal extra-axial fluid collection, or mass effect. Fourth ventricle is midline without hydrocephalus. Mora-white matter differentiation preserved. Bony calvarium intact. Visualized paranasal sinuses and mastoid air cells are clear. Impression: Again motion artifact. No gross new or acute intracranial abnormalities. Comment: Preliminary interpretation was made by [facility]. No discrepancy. CTDI 59.13
[2017-11-29 04:16] VITALS: O2SAT 98
[2017-11-29] MEDS: Sodium Chloride 0.9% 1000 ML 1,000 ML IV SCH (04:36)
[2017-11-29 05:36] LABS: Lactic Acid 1.9 (0.4-2.0)
[2017-11-29 05:43] LABS: BASOPHIL % 0.3 % (0.0-0.4); Basophil (Absolute #) 0.02 (0-0.4); Eosinophil % 4.3 % (0.00-5.0); Eosinophil (Absolute #) 0.27 (0-0.5); Granulocyte Absolute (ANC) 3.71 (1.4-6.9); Granulocytes % 58.7 % (36.0-66.0); Hemoglobin 15.2 gm/dl (12.5-18.0); Lymphocyte (Absolute #) 1.34 (1.0-4.6); Lymphocytes % 21.2 % (24.0-44.0); Mean Cell Volume 92.7 fl (78-100); Mean Corpuscular Hemoglobin 32.8 pg (26-32); Mean Corpuscular Hgb Concent. 35.3 g/dl (32-36); Mean Platelet Volume 10.9 fl (6-9.5); Monocyte (Absolute #) 0.98 (0.0-1.3); Monocytes % 15.5 % (0.0-12.0); Platelet Count 119 K/mm3 (150-450); Red Blood Count 4.64 M/mm3 (4.1-5.6); Red Cell Distribution Width 14.1 % (11.5-14.0); White Blood Count 6.3 K/mm3 (4.0-10.5)
[2017-11-29 06:04] LABS: ALBUMIN 3.2 g/dL (3.5-5.0); BILIRUBIN,TOTAL 2.5 mg/dL (0.2-1.3); Calcium 8.4 mg/dL (8.4-10.2); Creatinine 1 1.65 mg/dL (0.66-1.25); Potassium 3.8 mmol/L (3.5-5.1); Total Protein 7.3 g/dL (6.3-8.2)
[2017-11-29] MEDS: PROVENTIL 2.5 MG/3 ML NEB IH SCH (06:57)
[2017-11-29] MEDS: Advair Hfa 115/21 Common canister IH SCH (06:59)
[2017-11-29 07:03] VITALS: BP 128/66; PULSE 70
--- NOTE | 2017-11-29 08:32 | PCM.DCORD ---
- Discharge Discharge Date: 11/29/17 Disposition: Skilled Care @ [facility] Prescriptions: Continue Lactulose 20 gm PO QID Thiamine HCl 100 mg [Vitamin B-1 100 mg] 100 mg PO QAM Levothyroxine Sodium 75 Mcg [Synthroid 75 Mcg] 75 mcg PO QAM PANTOPRAZOLE 40 mg Tablet [Protonix 40MG Tablet] 40 mg PO QAM Multivitamin [Multivitamins] 1 each PO QAM Escitalopram Oxalate [Lexapro] 20 mg PO HS Folic Acid 1 mg [Folate 1 mg] 1 mg PO DAILY Aripiprazole [Abilify] 5 mg PO HS Acetaminophen [Tylenol] 650 mg PO Q4HPRN PRN PRN Reason: Pain Aspirin/Acetaminophen/Caffeine [Excedrin Migraine Caplet] 1 tab PO BIDPRN PRN PRN Reason: Headache Dextran 70/Hypromellose [Artificial Tears] 1 drop OP TID Ascorbic Acid/Ascorbate Sodium [Vitamin C 250 mg Tablet Chew] 750 mg PO BID Pregabalin 50 mg [Lyrica 50MG] 50 mg PO BID Levetiracetam 250 MG [Keppra 250 MG] 250 mg PO BID Calcium Carbonate/Vitamin D3 [Calcium 600 + Vit D Tablet] 1 tab PO BID Insulin Aspart [NovoLOG Insulin] 0 unit SQ AC Magnesium Hydroxide 30 ml [Milk of Magnesia 30 ml] 30 ml PO DAILY PRN PRN PRN Reason: Constipation Sodium Phosphate,[place]-Dibasic [Fleet Enema] 1 enema R DAILY PRN PRN PRN Reason: Constipation Hydrocodone/APAP 10/325 mg [[place] 10/325 MG Tablet] 1 tab PO Q4H PRN PRN tablet MDD 6 tabs PRN Reason: Pain Insulin Aspart [NovoLOG Insulin] 20 unit SQ AC unit Insulin Detemir [Levemir] 30 unit SQ BID #10 ml Tolterodine Tartrate 2 mg [Detrol 2 MG] 4 mg PO DAILY metOLazone [Metolazone] 5 mg PO UD Potassium Chloride 10 Meq Tab* [Klor Con 10 MEQ] 20 meq PO DAILY Modafinil 100 mg [Provigil 100MG Tablet] 200 mg PO QAM Menthol [[place]] 1 lozenge PO UD PRN PRN Reason: cough/sore throat Magnesium Oxide 400 mg [Mag-Ox 400] 400 mg PO DAILY Glucagon 1 mg [GlucaGen 1 MG] 1 mg IJ UD PRN PRN Reason: bs<60 Dextrose [Glucose] 4 gm PO UD PRN PRN Reason: low bs Follow up with: SATURNINO MERA [Primary Care Provider] - 1 Week
[2017-11-29] MEDS ORDERED: GlucaGen 1 MG IJ PRN (09:07)
[2017-11-29] MEDS ORDERED: MILK OF MAGNESIA 30 ML PO PRN (09:07)
[2017-11-29] MEDS ORDERED: TYLENOL 325 MG PO PRN (09:07)
[2017-11-29] MEDS ORDERED: ACETAMINOPHEN PO PRN (09:07)
[2017-11-29] MEDS ORDERED: ASPIRIN PO PRN (09:07)
[2017-11-29] MEDS ORDERED: Norco 10/325 MG Tablet PO PRN (09:07)
[2017-11-29] MEDS ORDERED: Dex4 Glucose 4 GM TABLET PO PRN (09:07)
[2017-11-29] MEDS ORDERED: SODIUM PHOSPHATE MONO DIBASIC R PRN (09:07)
[2017-11-29] MEDS ORDERED: MENTHOL PO PRN (09:07)
[2017-11-29] MEDS ORDERED: CAFFEINE PO PRN (09:07)
[2017-11-29] MEDS ORDERED: NON-FORMULARY ITEM (Metolazone [Metolazone] 5 MG) PO SCH (09:15)
[2017-11-29] MEDS ORDERED: NON-FORMULARY ITEM (Multivitamin [Multivitamins] 1 EACH) PO SCH (10:00)
[2017-11-29] MEDS ORDERED: TOLTERODINE TARTRATE PO SCH (10:00)
[2017-11-29] MEDS ORDERED: SYNTHROID 75 MCG PO SCH (10:00)
[2017-11-29] MEDS ORDERED: Calcium 500MG W/Vit D Tablet PO SCH (10:00)
[2017-11-29] MEDS ORDERED: NON-FORMULARY ITEM (Insulin Detemir [Levemir] 30 UNIT) SQ SCH (10:00)
[2017-11-29] MEDS ORDERED: Zaroxolyn 2.5 MG PO SCH (10:00)
[2017-11-29] MEDS ORDERED: Lantus Insulin SQ SCH (10:00)
[2017-11-29] MEDS ORDERED: MAG-OX 400 PO SCH (10:00)
[2017-11-29] MEDS ORDERED: LACTULOSE 20 GM/30ML UD CUP PO SCH (10:00)
[2017-11-29] MEDS ORDERED: Klor Con 10 MEQ PO SCH (10:00)
[2017-11-29] MEDS ORDERED: FOLATE 1 MG PO SCH (10:00)
[2017-11-29] MEDS ORDERED: Ditropan 5 MG PO SCH (10:00)
[2017-11-29] MEDS ORDERED: Vitamin C 500 MG PO SCH (10:00)
[2017-11-29] MEDS ORDERED: NON-FORMULARY ITEM (Dextran 70/Hypromellose [Artificial Tears] 1 DROP) OP SCH (10:00)
[2017-11-29] MEDS ORDERED: VITAMIN B-1 100 MG PO SCH (10:00)
[2017-11-29] MEDS ORDERED: LACTULOSE 20 GM PO SCH (10:00)
[2017-11-29] MEDS ORDERED: CALCIUM CARBONATE PO SCH (10:00)
[2017-11-29] MEDS ORDERED: ASCORBIC ACID PO SCH (10:00)
[2017-11-29] MEDS ORDERED: Provigil 100MG Tablet PO SCH (10:00)
[2017-11-29] MEDS ORDERED: Protonix 40MG Tablet PO SCH (10:00)
[2017-11-29] MEDS ORDERED: Keppra 250 MG PO SCH (10:00)
[2017-11-29] MEDS ORDERED: VITAMIN D3 PO SCH (10:00)
[2017-11-29] MEDS ORDERED: Lyrica 50MG PO SCH (10:00)
[2017-11-29] MEDS ORDERED: THERAGRAN MULTIVITAMIN PO SCH (10:00)
[2017-11-29] MEDS ORDERED: [UNRECOGNIZED DRUG - OTHER] PO SCH (10:00)
[2017-11-29] MEDS ORDERED: ASCORBATE SODIUM PO SCH (10:00)
[2017-11-29] MEDS ORDERED: NovoLOG Insulin SQ SCH ×2 (11:30)
[2017-11-29] MEDS ORDERED: Artificial Tears 15 ML OP SCH (15:00)
[2017-11-29] MEDS ORDERED: NON-FORMULARY ITEM (Escitalopram Oxalate [Lexapro] 20 MG) PO SCH (22:00)
[2017-11-29] MEDS ORDERED: Lexapro 10 MG PO SCH (22:00)
[2017-11-29] MEDS ORDERED: NON-FORMULARY ITEM (Aripiprazole [Abilify] 5 MG) PO SCH (22:00)
[2017-11-29] MEDS ORDERED: Abilify 10 MG PO SCH (22:00)
--- NOTE | 2017-12-01 13:34 | DS ---
DISCHARGE DIAGNOSES: 1) CHANGE IN LEVEL OF CONSCIOUSNESS. 2) LETHARGY. HOSPITAL COURSE: The patient's past medical history is significant for dementia, peripheral neuropathy, seizure, transient ischemic attack, liver failure, chronic obstructive pulmonary disease, hypoxia, sleep apnea, diabetes mellitus type 2. Apparently the patient has been in the [facility] over the past couple of years where they noticed he had lethargy and they were having trouble arousing him with arousing only to deep pain stimuli. The patient was brought to the emergency room and felt the need to be admitted to the hospital for further evaluation and management. In the emergency room, they were unable to find a focus for infection. The patient was admitted to the hospital basically for IV fluids and monitoring neural status changes. MEDICATIONS: The patient is on a huge list of medications at the [facility] including Abilify, Lexapro, folic acid, lactulose, Synthroid, oxycodone, pantoprazole, thiamine, amiloride, vitamin C, Excedrin, Bumex, vitamin D, Klonopin, Keppra, Lyrica, NovoLog insulin, Detrol, modafinil, potassium, metolazone. ALLERGIES: THE PATIENT REPORTS ALLERGY TO METFORMIN WHICH CAUSED HIM TO HAVE DIARRHEA. DILANTIN, TEGRETOL WITH UNKNOWN ALLERGY EFFECTS. PHYSICAL EXAMINATION: Revealed a well nourished, well developed 56 year-old white male patient who has improved in his mental status. He is now able to converse with me intelligently and remembers his history. He is asking to drink as I left NPO due to his lethargy yesterday. The patient appears to be back to his baseline status at this time with regards to his thought processes. HEENT: Normocephalic, atraumatic. Oropharynx appears to be dry. NECK: Supple without lymphadenopathy, thyromegaly or JVD. CHEST: Clear to auscultation. HEART: Regular rate and rhythm. ABDOMEN: Soft. No palpable masses. EXTREMITIES: Reveals flexion contractures of the lower extremities. He is able to lift his legs against gravity but little else. His upper extremities move freely without evidence of any focal deficits. LAB DATA AND TESTS: Laboratory studies from the emergency room revealed a sugar 225, BUN 76, creatinine 2.21. Electrolytes were essentially normal. His liver enzymes showed a total bilirubin of 2.60, elevation in his AST of 107 and ALT 66. Alkaline phosphatase also elevated at 182. His CBC however was normal with a white blood cell count of 7,900, hemoglobin 16.9, PLT count of 139,000. He had a lactic acid that was slightly elevated initially at 2.5. International normalized ratio 1.17. ProBNP was normal at 38.8. UA showed specific gravity of 1.005 with 2 to 5 white blood cells and 10 to 15 red blood cells per high power field with negative nitrite. His A1C was 9.63. Repeat lactic acid later in the day was down to 2.0 after IV fluid hydration. The patient's BUN dropped to 64, creatinine 1.65. 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 Ammonia level was not checked as the patient does take lactulose although we will check it this morning prior to his returning back to the [facility] as it appears that he is back to his usual state of health. We will not at this time change any of his other medications as he returns back to the emergency room. He is apparently cared for by Dr. Ayala at the [facility].
== END 2017-11-29 11:00 | disposition home or self-care (01) ==
LOC: ED 12:08 → MED SURG 14:16
PROVIDERS: ADMIT Family Medicine; ATTEND Family Medicine
DX: F03.90 Unspecified dementia, unspecified severity, without behavioral disturbance, psychotic disturbance, mood disturbance, and anxiety (principal); G62.9 Polyneuropathy, unspecified; G40.919 Epilepsy, unspecified, intractable, without status epilepticus; J44.9 Chronic obstructive pulmonary disease, unspecified; I48.91 Unspecified atrial fibrillation; Z86.73 Personal history of transient ischemic attack (TIA), and cerebral infarction without residual deficits; E11.9 Type 2 diabetes mellitus without complications; G47.30 Sleep apnea, unspecified; Z79.899 Other long term (current) drug therapy
CPT/HCPCS: 36000; 36415; 36600; 70450; 71045; 80053; 81000; 82140; 82150; 82375; 82803; 82962; 83036; 83605; 83690; 83880; 85025; 85610; 85730; 87040; 87086; 93005; 93041; 93268; 94150; 94640; 94660; 94762; 96360; 96361; 99285; J7609; 96367; A9270-GY; G0378

== ENCOUNTER 2018-02-08 09:42 | Emergency (ER) | payer MEDICARE ==
[2018-02-08] MEDS ORDERED: K-LYTE 25 MEQ (09:52)
[2018-02-08] MEDS: K-LYTE 25 MEQ PO (10:01)
[2018-02-08 10:23] LABS: ANION GAP 11.7 MEQ/L (5-15); BLOOD UREA NITROGEN 30 mg/dL (9-20); CHLORIDE 92 mmol/L (98-107); Calcium 8.8 mg/dL (8.4-10.2); Carbon Dioxide 31 mmol/L (22-30); Creatinine 1 1.14 mg/dL (0.66-1.25); EST GLOMERULAR FILTRATION RATE > 60.0 ML/MIN; Glucose 276 mg/dL (74-106); Potassium 3.2 mmol/L (3.5-5.1); SODIUM 132 mmol/L (137-145)
== END 2018-02-08 12:51 | disposition home or self-care (01) ==
LOC: ED 09:42
CPT/HCPCS: 36415; 80048

== ENCOUNTER 2018-05-23 10:25 | Emergency (ER) | payer MEDICARE ==
[2018-05-23] MEDS ORDERED: Sodium Chloride 0.9% 1000 ML 1,000 ML IV SCH (10:30)
[2018-05-23] MEDS ORDERED: D50W 50 ml Abboject IV ONE ×2 (10:37→16:30)
[2018-05-23 10:51] LABS: BASOPHIL % 0.3 % (0.0-0.4); Basophil (Absolute #) 0.03 (0-0.4); Eosinophil % 5.2 % (0.00-5.0); Eosinophil (Absolute #) 0.47 (0-0.5); Granulocytes % 44.7 % (36.0-66.0); Hematocrit 43.9 % (42-50); Lymphocytes % 33.5 % (24.0-44.0); Mean Cell Volume 96.1 fl (78-100); Mean Corpuscular Hemoglobin 32.8 pg (26-32); Mean Corpuscular Hgb Concent. 34.2 g/dl (32-36); Mean Platelet Volume 11.1 fl (6-9.5); Monocyte (Absolute #) 1.46 (0.0-1.3); Monocytes % 16.3 % (0.0-12.0); Platelet Count 95 K/mm3 (150-450); Red Blood Count 4.57 M/mm3 (4.1-5.6); Red Cell Distribution Width 15.9 % (11.5-14.0)
[2018-05-23 11:07] LABS: INR 1.26 (0.8-3.0)
[2018-05-23 11:09] LABS: ALBUMIN 3.4 g/dL (3.5-5.0); ALKALINE PHOSPHATASE 171 U/L (38-126); ANION GAP 12.1 MEQ/L (5-15); BLOOD UREA NITROGEN 30 mg/dL (9-20); CHLORIDE 99 mmol/L (98-107); Calcium 8.5 mg/dL (8.4-10.2); Carbon Dioxide 34 mmol/L (22-30); Creatinine 1 1.23 mg/dL (0.66-1.25); Glucose 68 mg/dL (74-106); NT PRO BNP 106 pg/mL (0-900); Potassium 3.5 mmol/L (3.5-5.1); SGOT/AST 105 U/L (17-59); SGPT/ALT 43 U/L (0-50); SODIUM 141 mmol/L (137-145); Total Protein 7.9 g/dL (6.3-8.2)
[2018-05-23 11:12] LABS: Slide Review 1 YES
--- NOTE | 2018-05-23 11:20 | ERPHSYRPT ---
- History of Present Illness Time Seen by Provider: 05/23/18 10:27 Source: patient, EMS, old records Exam Limitations: no limitations Physician History: patient from [facility] EMS- sob x 3 days; non-productive cough; no fever; hx DM; no N&V; no DIarrhea; sweaty; no travel; no pains Timing/Duration: day(s) (2-3 ), gradual onset, worse Activities at Onset: rest Severity of Dyspnea-Max: moderate Severity of Dyspnea-Current: moderate Possible Cause: no prior episodes Modifying Factors: Improves With: nothing Associated Symptoms: cough, sweating International travel in last 2 weeks: No Allergies/Adverse Reactions: metformin Allergy (Mild, Verified 05/23/18 10:39) Diarrhea phenytoin sodium [From Dilantin] Allergy (Mild, Verified 05/23/18 10:39) phenytoin sodium extended [From Dilantin] Allergy (Mild, Verified 05/23/18 10:39 ) carbamazepine [From Tegretol] Allergy (Unknown, Verified 05/23/18 10:39) Home Medications: Aripiprazole [Abilify] 5 mg PO HS 06/19/17 [History] Escitalopram Oxalate [Lexapro] 20 mg PO HS 06/19/17 [History] Folic Acid 1 mg [Folate 1 mg] 1 mg PO DAILY 06/19/17 [History] Lactulose 20 gm PO QID 06/19/17 [History] Levothyroxine Sodium 75 Mcg [Synthroid 75 Mcg] 75 mcg PO QAM 06/19/17 [ History] Multivitamin [Multivitamins] 1 each PO QAM 06/19/17 [History] PANTOPRAZOLE 40 mg Tablet [Protonix 40MG Tablet] 40 mg PO QAM 06/19/17 [ History] Thiamine HCl 100 mg [Vitamin B-1 100 mg] 100 mg PO QAM 06/19/17 [History] Acetaminophen [Tylenol] 650 mg PO Q4HPRN PRN 07/24/17 [History] Ascorbic Acid/Ascorbate Sodium [Vitamin C 250 mg Tablet Chew] 750 mg PO BID [History] Aspirin/Acetaminophen/Caffeine [Excedrin Migraine Caplet] 1 tab PO BIDPRN PRN [History] Calcium Carbonate/Vitamin D3 [Calcium 600 + Vit D Tablet] 1 tab PO BID 07/24/17 [History] Dextran 70/Hypromellose [Artificial Tears] 1 drop OP TID 07/24/17 [History] Levetiracetam 250 MG [Keppra 250 MG] 250 mg PO BID 07/24/17 [History] Pregabalin 50 mg [Lyrica 50MG] 50 mg PO BID 07/24/17 [History] Insulin Aspart [NovoLOG Insulin] 0 unit SQ AC 07/25/17 [History] Magnesium Hydroxide 30 ml [Milk of Magnesia 30 ml] 30 ml PO DAILY PRN PRN 07/25/17 [History] Sodium Phosphate,[place]-Dibasic [Fleet Enema] 1 enema R DAILY PRN PRN 07/25/17 [ History] Tolterodine Tartrate 2 mg [Detrol 2 MG] 4 mg PO DAILY 08/28/17 [History] Modafinil 100 mg [Provigil 100MG Tablet] 200 mg PO QAM 09/10/17 [History] Potassium Chloride 10 Meq Tab* [Klor Con 10 MEQ] 20 meq PO DAILY 09/10/17 [ History] metOLazone [Metolazone] 5 mg PO UD 09/10/17 [History] Dextrose [Glucose] 4 gm PO UD PRN 11/28/17 [History] Glucagon 1 mg [GlucaGen 1 MG] 1 mg IJ UD PRN 11/28/17 [History] Magnesium Oxide 400 mg [Mag-Ox 400] 400 mg PO DAILY 11/28/17 [History] Menthol [[place]] 1 lozenge PO UD PRN 11/28/17 [History] Hx Tetanus, Diphtheria Vaccination/Date Given: No Hx Influenza Vaccination/Date Given: Yes Hx Pneumococcal Vaccination/Date Given: Yes - Review of Systems Constitutional: No Symptoms Eyes: No Symptoms Ears, Nose, & Throat: No Symptoms Respiratory: Cough, No Cyanosis, No Dyspnea, No Wheezing Cardiac: No Chest Pain, No Palpitations, No Syncope Abdominal/Gastrointestinal: No Abdominal Pain, No Nausea, No Vomiting, No Diarrhea Genitourinary Symptoms: No Symptoms Musculoskeletal: No Symptoms Skin: No Symptoms Neurological: No Symptoms Psychological: No Symptoms Endocrine: No Symptoms Hematologic/Lymphatic: No Symptoms Immunological/Allergic: No Symptoms - Past Medical History Pertinent Past Medical History: Yes Neurological History: Dementia, Peripheral Neuropathy, Seizures, TIA ENT History: No Pertinent History Cardiac History: High Cholesterol, Hypertension Respiratory History: Asthma, Bronchitis, COPD, Sleep Apnea Endocrine Medical History: Diabetes Type II, Hypothyroidism Musculoskeletal History: Arthritis GI Medical History: Cirrhosis, Ulcer History: Other Psycho-Social History: Depression Male Reproductive Disorders: No Pertinent History Other Medical History: URINARY INCONTINENCE/retention - Past Surgical History Past Surgical History: Yes Neuro Surgical History: No Pertinent History Cardiac: No Pertinent History Respiratory: No Pertinent History Gastrointestinal: No Pertinent History Genitourinary: No Pertinent History Musculoskeletal: Orthopedic Surgery Male Surgical History: Other Other Surgical History: LATE CIRCUMCISION - tip of FINGER AMPUTATION. SUPRAPUBIC CATHETER PLACED 07/11/14 - Social History Smoking Status: Former smoker How long have you smoked: 30 Exposure to second hand smoke: No Alcohol Use: None Drug Use: none Patient Lives Alone: No Significant Family History: heart disease, diabetes - Nursing Vital Signs Nursing Vital Signs: Initial Vital Signs Respiratory Rate 24 05/23/18 10:25 O2 Sat by Pulse Oximetry 96 05/23/18 10:25 Pain Scale Pain Intensity 0 - Physical Exam General Appearance: mild distress, alert, obese (mild) Eye Exam: PERRL/EOMI, eyes nml inspection Ears, Nose, Throat Exam: hearing grossly normal, pharyngeal erythema, No normal pharynx Neck Exam: normal inspection, non-tender, supple, full range of motion, No JVD Respiratory Exam: respiratory distress (mild tachypnea), airway intact, crackles /rales, No normal breath sounds, No chest tenderness, No lungs clear, No prolonged expirations, No rhonchi (coarse scattered BV BS), No stridor, No pleural rub Cardiovascular/Chest Exam: normal heart sounds, regular rate/rhythm, normal peripheral pulses, No murmur, No edema, No JVD Abdominal/Gastrointestinal Exam: normal bowel sounds, No tenderness, No guarding , No rebound, No organomegaly Rectal Exam: deferred Extremity Exam: non-tender, normal inspection, normal capillary refill Peripheral Pulses Exam: carotid (R): 4+, carotid (L): 4+, femoral (R): 4+, femoral (L): 4+, dorsalis-pedis (R): 3+, dorsalis-pedis (L): 3+ Neurologic Exam: alert, cooperative, normal mood/affect Skin Exam: normal color, warm, No dry (sweaty) SpO2 Interpretation: normal SpO2: 95 Oxygen Delivery: Nasal Cannula - Course Nursing assessment & vital signs reviewed: Yes - Radiology Exams Chest X-ray Interpretation: Interpreted by me, No Pneumonia, No Pneumothorax, Nml Heart Size, Other (some increased interstitial marking) Ordered Tests: Active Orders 24 hr Category Date Time Status Process Excellence Manager STAT Care 05/23/18 10:29 Active IV Insertion STAT Care 05/23/18 10:28 Active Oxygen-ED Only NASAL CANNULA 2 lpm Care 05/23/18 10:48 Active Pulse Oximetry (ED) STAT Care 05/23/18 10:28 Active Rectal Temperature STAT Care 05/23/18 10:28 Active CHEST 1 VIEW (PORTABLE) Stat Exams 05/23/18 10:55 Taken BLOOD CULTURE Stat Lab 05/23/18 10:45 Received CBC W DIFF Stat Lab 05/23/18 10:40 Completed CMP Stat Lab 05/23/18 10:40 Completed CULTURE,URINE Stat Lab 05/23/18 12:11 Received Lactic Acid Stat Lab 05/23/18 10:40 Completed NT PRO BNP Stat Lab 05/23/18 10:40 Completed PROTIME WITH INR Stat Lab 05/23/18 10:40 Completed UA W/RFX UR CULTURE Stat Lab 05/23/18 12:11 Completed Peak Expiratory Flow Rate ONCE RT 05/23/18 11:46 Active Respiratory Nebulizer STAT RT 05/23/18 11:46 Active Respiratory Therapy Assessment DAILY RT 05/23/18 12:28 Active Medication Summary Generic Name Dose Route Start Last Admin Trade Name Freq PRN Reason Stop Dose Admin Sodium Chloride 1,000 mls @ 100 mls/hr 05/23/18 10:30 05/23/18 11:33 Sodium Chloride 0.9% 1000 Ml IV 06/22/18 10:29 100 mls/hr .Q10H CARMEN Administration Discontinued Medications Generic Name Dose Route Start Last Admin Trade Name Freq PRN Reason Stop Dose Admin Albuterol/Ipratropium 3 ml 05/23/18 11:46 05/23/18 12:25 Duoneb 0.5-3 Mg/3 Ml Neb IH 05/23/18 11:47 3 ml STAT ONE Administration Albuterol/Ipratropium Confirm 05/23/18 12:23 Duoneb 0.5-3 Mg/3 Ml Neb Administered 05/23/18 12:24 Dose 3 ml IH .STK-MED ONE Dextrose Confirm 05/23/18 10:37 D50w 50 Ml Abboject Administered 05/23/18 10:38 Dose 50 ml IV .STK-MED ONE Ceftriaxone Sodium/Dextrose 1 g in 50 mls @ 100 mls/hr 05/23/18 11:46 11:52 Rocephin 1 Gm-D5w 50 Ml Bag IV 05/23/18 12:15 1 ml/hr STAT STA 1 mls/hr Administration Ceftriaxone Sodium/Dextrose Confirm 05/23/18 11:50 Rocephin 1 Gm-D5w 50 Ml Bag Administered 05/23/18 11:51 Dose 1 g in 50 mls @ ud IV .STK-MED ONE Lab/Rad Data: Laboratory Result Diagrams 05/23/18 10:40 05/23/18 10:40 Laboratory Results 05/23/18 05/23/18 05/23/18 Range/Units 12:11 10:40 10:40 WBC (4.0-10.5) K/mm3 RBC (4.1-5.6) M/mm3 Hgb (12.5-18.0) gm/dl Hct (42-50) % MCV (78-100) fl MCH (26-32) pg MCHC (32-36) g/dl RDW (11.5-14.0) % Plt Count (150-450) K/mm3 MPV (6-9.5) fl Gran % (36.0-66.0) % Eos # (Auto) (0-0.5) Absolute Lymphs (auto) (1.0-4.6) Absolute Monos (auto) (0.0-1.3) Lymphocytes % (24.0-44.0) % Monocytes % (0.0-12.0) % Eosinophils % (0.00-5.0) % Basophils % (0.0-0.4) % Absolute Granulocytes (1.4-6.9) Basophils # (0-0.4) PT 14.7 H (8.83-12.87) SECONDS INR 1.26 (0.8-3.0) Sodium (137-145) mmol/L Potassium (3.5-5.1) mmol/L Chloride (98-107) mmol/L Carbon Dioxide (22-30) mmol/L Anion Gap (5-15) MEQ/L BUN (9-20) mg/dL Creatinine (0.66-1.25) mg/dL Estimated GFR ML/MIN Glucose (74-106) mg/dL Lactic Acid (0.4-2.0) Calcium (8.4-10.2) mg/dL Total Bilirubin (0.2-1.3) mg/dL AST (17-59) U/L ALT (0-50) U/L Alkaline Phosphatase (38-126) U/L NT-Pro-B Natriuret Pep (0-900) pg/mL Serum Total Protein (6.3-8.2) g/dL Albumin (3.5-5.0) g/dL Urine Color YELLOW (YELLOW) Urine Appearance SLIGHTLY CLOUDY (CLEAR) Urine pH 7.0 (5-6) Ur Specific [place] 1.012 (1.005-1.025) Urine Protein NEGATIVE (Negative) Urine Ketones NEGATIVE (NEGATIVE) Urine Blood NEGATIVE (0-5) [place]/ul Urine Nitrite NEGATIVE (NEGATIVE) Urine Bilirubin NEGATIVE (NEGATIVE) Urine Urobilinogen NEGATIVE (0-1) mg/dL Ur Leukocyte Esterase MODERATE (NEGATIVE) Urine WBC (Auto) 11-15 (0-5) /HPF Urine RBC (Auto) NONE (0-2) /HPF U Epithel Cells (Auto) NONE (FEW) /HPF Urine Bacteria (Auto) RARE (NEGATIVE) /HPF Urine Culture Reflexed YES (NO) Urine Glucose NEGATIVE (NEGATIVE) mg/dL Influenza Type A Ag NEGATIVE (NEGATIVE) Influenza Type B Ag NEGATIVE (NEGATIVE) RSV (PCR) NEGATIVE (Negative) Slides for Path Review 05/23/18 05/23/18 05/23/18 Range/Units 10:40 10:40 10:40 WBC 9.0 (4.0-10.5) K/mm3 RBC 4.57 (4.1-5.6) M/mm3 Hgb 15.0 (12.5-18.0) gm/dl Hct 43.9 (42-50) % MCV 96.1 (78-100) fl MCH 32.8 H (26-32) pg MCHC 34.2 (32-36) g/dl RDW 15.9 H (11.5-14.0) % Plt Count 95 L (150-450) K/mm3 MPV 11.1 H (6-9.5) fl Gran % 44.7 (36.0-66.0) % Eos # (Auto) 0.47 (0-0.5) Absolute Lymphs (auto) 3.00 (1.0-4.6) Absolute Monos (auto) 1.46 H (0.0-1.3) Lymphocytes % 33.5 (24.0-44.0) % Monocytes % 16.3 H (0.0-12.0) % Eosinophils % 5.2 H (0.00-5.0) % Basophils % 0.3 (0.0-0.4) % Absolute Granulocytes 4.00 (1.4-6.9) Basophils # 0.03 (0-0.4) PT (8.83-12.87) SECONDS INR (0.8-3.0) Sodium 141 (137-145) mmol/L Potassium 3.5 (3.5-5.1) mmol/L Chloride 99 (98-107) mmol/L Carbon Dioxide 34 H (22-30) mmol/L Anion Gap 12.1 (5-15) MEQ/L BUN 30 H (9-20) mg/dL Creatinine 1.23 (0.66-1.25) mg/dL Estimated GFR > 60.0 ML/MIN Glucose 68 L (74-106) mg/dL Lactic Acid 1.5 (0.4-2.0) Calcium 8.5 (8.4-10.2) mg/dL Total Bilirubin 1.80 H (0.2-1.3) mg/dL AST 105 H (17-59) U/L ALT 43 (0-50) U/L Alkaline Phosphatase 171 H (38-126) U/L NT-Pro-B Natriuret Pep 106 (0-900) pg/mL Serum Total Protein 7.9 (6.3-8.2) g/dL Albumin 3.4 L (3.5-5.0) g/dL Urine Color (YELLOW) Urine Appearance (CLEAR) Urine pH (5-6) Ur Specific [place] (1.005-1.025) Urine Protein (Negative) Urine Ketones (NEGATIVE) Urine Blood (0-5) [place]/ul Urine Nitrite (NEGATIVE) Urine Bilirubin (NEGATIVE) Urine Urobilinogen (0-1) mg/dL Ur Leukocyte Esterase (NEGATIVE) Urine WBC (Auto) (0-5) /HPF Urine RBC (Auto) (0-2) /HPF U Epithel Cells (Auto) (FEW) /HPF Urine Bacteria (Auto) (NEGATIVE) /HPF Urine Culture Reflexed (NO) Urine Glucose (NEGATIVE) mg/dL Influenza Type A Ag (NEGATIVE) Influenza Type B Ag (NEGATIVE) RSV (PCR) (Negative) Slides for Path Review YES reviewed - Progress Progress: improved, re-examined (after meds) Air Movement: good Progress Note: 05/23/18 11:19 patient FSBS = 66; gave i amp D 50 and diaphoresis resolved; repeat FSBS = 187; CBC ok; BUN = 30, Cr 1.23 lytes ok ; liver labs elevated chronic ; p BNP wnlINR = 1.26lactic = 1.5; CXR fairly clear; some linear atelectasis LLL could be stranding or early infiltrate 05/23/18 11:24 Inf A&B neg and RSV nevg 05/23/18 11:26 rechecked and doing better; resting quietly; moving air well; sats good; VS good 05/23/18 11:47 patient starting to wheeze; will give duoneb and recheck; will start ATBs 05/23/18 13:08 recheck post resp treatment and VS improved; moving air better; no distress; reviewed all results and will feed and return to [place] Blood Culture(s) Obtained: Yes Antibiotics given: Yes Counseled pt/family regarding: lab results, diagnosis, need for follow-up, rad results - Departure Time of Disposition: 13:09 Departure Disposition: Extended Care Facility Clinical Impression: Diabetes, Chronic bronchitis with COPD (chronic obstructive pulmonary disease) , hypoglycemia resolved Condition: Stable Critical Care Time: No Referrals: HANK MERA [Primary Care Provider] - Instructions: Chronic Obstructive Pulmonary Disease Additional Instructions: continue current meds and therapies Follow-up with family doctor as directed. Call for appointment. Return if any problems. If you smoke please stop. Call or follow up with your family doctor for assistance if you need it to stop. Please wear your seatbelt when driving. Have a nice day. Thank you for allowing us to participate in your care today. :o) Dr Ananda Pascual Prescriptions: Sulfamethoxazole/Trimethoprim [Bactrim Ds Tablet] 1 each PO BID #20 tablet
[2018-05-23 11:22] LABS: INFLUENZA A NEGATIVE (NEGATIVE); INFLUENZA B NEGATIVE (NEGATIVE); RESPIRATORY SYNCTIAL VIRUS NEGATIVE (Negative)
[2018-05-23] MEDS ORDERED: Sodium Chloride 0.9% 1000 ML 1,000 ML ONE (11:30)
[2018-05-23] MEDS ORDERED: DUONEB 0.5-3 MG/3 ml Neb IH ONE ×2 (11:46→12:23)
[2018-05-23] MEDS ORDERED: ROCEPHIN 1 Gm-D5w 50 ml Bag** 1 G/50 ML IVPB IV STA (11:46)
[2018-05-23] MEDS ORDERED: ROCEPHIN 1 Gm-D5w 50 ml Bag** 1 G/50 ML IVPB IV ONE (11:50)
[2018-05-23 12:20] LABS: Appearance SLIGHTLY CLOUDY (CLEAR); Bilirubin NEGATIVE (NEGATIVE); Blood NEGATIVE Ery/ul (0-5); Glucose NEGATIVE (NEGATIVE); Ketones NEGATIVE (NEGATIVE); Leukocyte Esterase MODERATE (NEGATIVE); Nitrite NEGATIVE (NEGATIVE); Protein,Urine Dip NEGATIVE (Negative); Specific Gravity 1.012 (1.005-1.025); Urobilinogen NEGATIVE mg/dL (0-1)
[2018-05-23 13:06] VITALS: BP 109/73; PULSE 65
[2018-05-23 13:13] VITALS: O2SAT 95
--- NOTE | 2018-05-23 19:40 | XRAY ---
Indication: Short of breath. Comparison: November 28, 2017. Portable apical lordotic chest demonstrates new left infrahilar infiltrate versus atelectasis. Remaining heart, lungs, and bony thorax unremarkable.
== END 2018-05-23 13:55 ==
LOC: ED 10:25
DX: J44.9 Chronic obstructive pulmonary disease, unspecified (principal); E11.649 Type 2 diabetes mellitus with hypoglycemia without coma; Z79.899 Other long term (current) drug therapy; Z79.4 Long term (current) use of insulin
CPT/HCPCS: 36000; 36415; 71045; 80053; 81001; 82962; 83605; 83880; 85025; 85610; 87040; 87077; 87086; 87186; 87631; 93041; 94640; 96360; 96361; 96365; 96374; 99285; J0696; A9270-GY